=== PATIENT | male | born 1980 | race Caucasian/White ===

== ENCOUNTER 2017-05-14 10:23 | Emergency (ER) | payer OTHER ==
[2017-05-14] MEDS ORDERED: SODIUM CHLORIDE 0.9% 1,000 ML IV STA (10:39)
--- NOTE | 2017-05-14 10:47 | ED ---
General Adult HPI - General Chief complaint: Extremity Problem,Nontraumatic Stated complaint: LEFT ARM PAIN Time Seen by Provider: 05/14/17 10:30 Source: patient, RN notes reviewed Mode of arrival: ambulatory Limitations: no limitations - History of Present Illness Initial comments: Patient's 36-year-old male who presents emergency room today with chief complaint of left-sided arm pain. He doesn't pain left side of his neck and arm. He states that he noticed when he woke up. He states seems to be worse at times with some movement but states she was concerned that it could be related to his heart. He denies any family history of heart disease. Patient having difficult time describing pain going down the arm. Admits to pain to approximately the elbow area. States unsure if he slept wrong. Patient denies any other complaints or associated symptoms. Patient denies any recent fever, chills, shortness of breath, chest pain, back pain, abdominal pain, nausea or vomiting, numbness or tingling, dysuria or hematuria, constipation or diarrhea, headaches or visual changes, or any other complaints. - Related Data Home Medications Medication Instructions Recorded Confirmed Acetaminophen [Tylenol Extra 1,000 mg PO BID PRN 05/14/17 05/14/17 Strength] Ibuprofen [Motrin] 200 mg PO Q6HR PRN 05/14/17 05/14/17 Allergies Allergy/AdvReac Type Severity Reaction Status Date / Time No Known Allergies Allergy Verified 05/14/17 12:41 Review of Systems ROS Statement: Those systems with pertinent positive or pertinent negative responses have been documented in the HPI. ROS Other: All systems not noted in ROS Statement are negative. Past Medical History Past Medical History: No Reported History Additional Past Medical History / Comment(s): Kidney stone 2006 History of Any Multi-Drug Resistant Organisms: None Reported Additional Past Surgical History / Comment(s): Left Orchectomy Past Psychological History: No Psychological Hx Reported Smoking Status: Current every day smoker Past Alcohol Use History: None Reported Past Drug Use History: None Reported General Exam - General Exam Comments Initial Comments: General: The patient is awake and alert, in no distress, and does not appear acutely ill. Eye: Pupils are equal, round and reactive to light, extra-ocular movements are intact. No nystagmus. There is normal conjunctiva bilaterally. No signs of icterus. Ears, nose, mouth and throat: There are moist mucous membranes and no oral lesions. Neck: The neck is supple, there is no tenderness or JVD. Cardiovascular: There is a regular rate and rhythm. No murmur, rub or gallop is appreciated. Respiratory: Lungs are clear to auscultation, respirations are non-labored, breath sounds are equal. No wheezes, stridor, rales, or rhonchi. Gastrointestinal: Soft, non-distended, non-tender abdomen without masses or organomegaly noted. There is no rebound or guarding present. No CVA tenderness. Bowel sounds are unremarkable. Musculoskeletal: Normal ROM, no tenderness. Strength 5/5. Sensation intact. Pulses equal bilaterally 2+. Neurological: A&O x 3. CN II-XII intact, There are no obvious motor or sensory deficits. Coordination appears grossly intact. Speech is normal. Skin: Skin is warm and dry and no rashes or lesions are noted. Psychiatric: Cooperative, appropriate mood & affect, normal judgment. Limitations: no limitations Course Vital Signs 05/14/17 05/14/17 05/14/17 10:25 11:14 12:46 Temperature 97.2 F L Pulse Rate 82 85 91 Respiratory 20 18 18 Rate Blood Pressure 135/91 145/91 113/81 O2 Sat by Pulse 99 98 96 Oximetry EKG Findings - EKG Comments: EKG Findings:: EKG performed at 1109: A 12-lead EKG was performed and interpreted by me as showing the following: Rate is 80, and rhythm is normal sinus. There are normal QRS complexes and normal R-wave progression. ST segments have no elevation or depression, and NH segments appear normal. Medical Decision Making - Medical Decision Making Patient reexamined at this time shows no signs of distress. He states that he would like to be discharged. Patient's set of cardiac enzymes negative. Patient is with pain at this time he believes his shoulder wrong. He states it seems to be worse with movements. EKG shows no acute ST change. Patient advised close follow-up the family doctor over the next 2 days return to emergency room if any symptoms increase or worsen. - Lab Data Result diagrams: 05/14/17 11:11 05/14/17 11:11 Lab Results 05/14/17 05/14/17 05/14/17 Range/Units 11:11 11:11 11:11 WBC 5.7 (3.8-10.6) k/uL RBC 4.82 (4.30-5.90) m/uL Hgb 15.3 (13.0-17.5) gm/dL Hct 46.7 (39.0-53.0) % MCV 96.8 (80.0-100.0) fL MCH 31.8 (25.0-35.0) pg MCHC 32.8 (31.0-37.0) g/dL RDW 13.8 (11.5-15.5) % Plt Count 248 (150-450) k/uL Neutrophils % 49 % Lymphocytes % 38 % Monocytes % 6 % Eosinophils % 6 % Basophils % 1 % Neutrophils # 2.8 (1.3-7.7) k/uL Lymphocytes # 2.2 (1.0-4.8) k/uL Monocytes # 0.4 (0-1.0) k/uL Eosinophils # 0.3 (0-0.7) k/uL Basophils # 0.0 (0-0.2) k/uL PT (9.0-12.0) sec INR (<1.2) APTT (22.0-30.0) sec Sodium 142 (137-145) mmol/L Potassium 4.0 (3.5-5.1) mmol/L Chloride 108 H (98-107) mmol/L Carbon Dioxide 23 (22-30) mmol/L Anion Gap 11 mmol/L BUN 12 (9-20) mg/dL Creatinine 1.05 (0.66-1.25) mg/dL Est GFR (MDRD) Af Amer >60 (>60 ml/min/1.73 sqM) Est GFR (MDRD) Non-Af >60 (>60 ml/min/1.73 sqM) Glucose 101 H (74-99) mg/dL Calcium 9.7 (8.4-10.2) mg/dL Total Bilirubin 0.4 (0.2-1.3) mg/dL AST 19 (17-59) U/L ALT 25 (21-72) U/L Alkaline Phosphatase 37 L (38-126) U/L Total Creatine Kinase 69 (55-170) U/L CK-MB (CK-2) 0.3 (0.0-2.4) ng/mL CK-MB (CK-2) Rel Index 0.4 Troponin I <0.012 (0.000-0.034) ng/mL Total Protein 7.3 (6.3-8.2) g/dL Albumin 4.3 (3.5-5.0) g/dL 05/14/17 Range/Units 11:11 WBC (3.8-10.6) k/uL RBC (4.30-5.90) m/uL Hgb (13.0-17.5) gm/dL Hct (39.0-53.0) % MCV (80.0-100.0) fL MCH (25.0-35.0) pg MCHC (31.0-37.0) g/dL RDW (11.5-15.5) % Plt Count (150-450) k/uL Neutrophils % % Lymphocytes % % Monocytes % % Eosinophils % % Basophils % % Neutrophils # (1.3-7.7) k/uL Lymphocytes # (1.0-4.8) k/uL Monocytes # (0-1.0) k/uL Eosinophils # (0-0.7) k/uL Basophils # (0-0.2) k/uL PT 9.5 (9.0-12.0) sec INR 0.9 (<1.2) APTT 23.8 (22.0-30.0) sec Sodium (137-145) mmol/L Potassium (3.5-5.1) mmol/L Chloride (98-107) mmol/L Carbon Dioxide (22-30) mmol/L Anion Gap mmol/L BUN (9-20) mg/dL Creatinine (0.66-1.25) mg/dL Est GFR (MDRD) Af Amer (>60 ml/min/1.73 sqM) Est GFR (MDRD) Non-Af (>60 ml/min/1.73 sqM) Glucose (74-99) mg/dL Calcium (8.4-10.2) mg/dL Total Bilirubin (0.2-1.3) mg/dL AST (17-59) U/L ALT (21-72) U/L Alkaline Phosphatase (38-126) U/L Total Creatine Kinase (55-170) U/L CK-MB (CK-2) (0.0-2.4) ng/mL CK-MB (CK-2) Rel Index Troponin I (0.000-0.034) ng/mL Total Protein (6.3-8.2) g/dL Albumin (3.5-5.0) g/dL Disposition Clinical Impression: Shoulder pain Disposition: HOME SELF-CARE Condition: Good Instructions: Shoulder Pain (ED) Additional Instructions: Please follow-up family doctor over the next 1-2 days. Please use ibuprofen for pain as needed. Please return to emergency room if any symptoms increase or worsen or for any other concerns. Referrals: Cecil Moreno MD [Primary Care Provider] - 1-2 days Time of Disposition: 13:07
[2017-05-14 11:22] LABS: Basophils % (A) 1 %; CHCM 34.2; Eosinophils # (A) 0.3 k/uL (0-0.7); Eosinophils % (A) 6 %; HCT 46.7 % (39.0-53.0); HGB 15.3 gm/dL (13.0-17.5); Luc # (Auto) 0.07; Luc % (Auto) 1; Lymphocytes # (A) 2.2 k/uL (1.0-4.8); Lymphocytes % (A) 38 %; MCH 31.8 pg (25.0-35.0); MCHC 32.8 g/dL (31.0-37.0); MCV 96.8 fL (80.0-100.0); Mean Platelet Volume 8.2; Monocytes # (A) 0.4 k/uL (0-1.0); Monocytes % (A) 6 %; Neutrophils # (A) 2.8 k/uL (1.3-7.7); Neutrophils % (A) 49 %; RBC 4.82 m/uL (4.30-5.90); RDW 13.8 % (11.5-15.5); WBC 5.7 k/uL (3.8-10.6)
--- NOTE | 2017-05-14 11:32 | XR ---
EXAMINATION TYPE: XR chest 2V DATE OF EXAM: 05/14/2017 HISTORY: pain. REFERENCE: Previous study dated 10/09/2014. FINDINGS: The lungs are clear. Pleural spaces are clear IMPRESSION: NO ACUTE INTRATHORACIC ABNORMALITY.
[2017-05-14 11:34] LABS: INR 0.9 (<1.2); Partial Thromboplastin Time 23.8 sec (22.0-30.0); Prothrombin Time 9.5 sec (9.0-12.0)
[2017-05-14 11:42] LABS: ALT 25 U/L (21-72); AST 19 U/L (17-59); Alkaline Phosphatase 37 U/L (38-126); Anion Gap 11 mmol/L; Blood Urea Nitrogen 12 mg/dL (9-20); Calcium 9.7 mg/dL (8.4-10.2); Carbon Dioxide 23 mmol/L (22-30); Chloride 108 mmol/L (98-107); Glucose 101 mg/dL (74-99); Non-African American GFR(MDRD) >60 (>60 ml/min/1.73 sqM); Sodium 142 mmol/L (137-145); Total Bilirubin 0.4 mg/dL (0.2-1.3); Total Protein 7.3 g/dL (6.3-8.2)
[2017-05-14 11:54] LABS: Creatine Kinase 69 U/L (55-170)
[2017-05-14 12:05] LABS: Creatine Kinase MB 0.3 ng/mL (0.0-2.4); Troponin I <0.012 ng/mL (0.000-0.034)
[2017-05-14 13:23] VITALS: BP 135/69; PULSE 60; RESP 16; TEMP 98
== END 2017-05-14 13:25 | disposition home or self-care (01) ==
LOC: EC 10:23
DX: M25.512 Pain in left shoulder (principal); F17.200 Nicotine dependence, unspecified, uncomplicated
CPT/HCPCS: 36415; 71020; 80053; 82550; 82553; 84484; 85025; 85610; 85730; 93005; 96360; 96361; 99284

== ENCOUNTER 2018-03-05 13:28 | Emergency (ER) | payer OTHER ==
[2018-03-05 13:32] VITALS: BP 127/83; PULSE 104; RESP 18; TEMP 97.6
[2018-03-05] MEDS ORDERED: ACET/COD 300 MG/30 MG STARTER PACK 6 TAB BTL PO STA (13:58)
--- NOTE | 2018-03-05 14:04 | ED ---
General Adult HPI - General Chief complaint: Dental/Oral Stated complaint: Dental pain Time Seen by Provider: 03/05/18 13:33 Source: patient, RN notes reviewed Mode of arrival: ambulatory Limitations: no limitations - History of Present Illness Initial comments: Patient 37-year-old male presented to the emergency room today with a chief complaint of increased dental pain. Patient does admit to a fractured tooth at tooth #31. He does have a wisdom tooth on the right lower side that is been pushing through. He states it's been for sometime. He states over the last 2 weeks had increased pain. Does admit that his had some foul taste. Patient denies any other complaints or symptoms. Patient denies any recent fever, chills , shortness of breath, chest pain, back pain, abdominal pain, nausea or vomiting , numbness or tingling, headaches or visual changes, or any other complaints. - Related Data Home Medications Medication Instructions Recorded Confirmed Acetaminophen [Tylenol Extra 1,000 mg PO BID PRN 05/14/17 05/29/17 Strength] Ibuprofen [Motrin] 200 mg PO Q6HR PRN 05/14/17 05/29/17 Previous Rx's Medication Instructions Recorded HYDROcodone/APAP 5-325MG [[place] 1 tab PO Q6HR PRN #20 tab 05/29/17 5-325] Naproxen [Naprosyn] 500 mg PO Q12HR PRN #30 tab 05/29/17 Ondansetron Odt [Zofran ODT] 4 mg PO Q8HR PRN #30 tab 05/29/17 Tamsulosin [Flomax] 0.4 mg PO DAILY #7 cap 05/29/17 Penicillin V Potassium [Pen Vee K] 500 mg PO QID #40 tablet 03/05/18 Allergies Allergy/AdvReac Type Severity Reaction Status Date / Time No Known Allergies Allergy Verified 03/05/18 13:32 Review of Systems ROS Statement: Those systems with pertinent positive or pertinent negative responses have been documented in the HPI. ROS Other: All systems not noted in ROS Statement are negative. Past Medical History Past Medical History: No Reported History Additional Past Medical History / Comment(s): Kidney stone 2006 History of Any Multi-Drug Resistant Organisms: None Reported Additional Past Surgical History / Comment(s): Left Orchectomy Past Psychological History: No Psychological Hx Reported Smoking Status: Current every day smoker Past Alcohol Use History: None Reported Past Drug Use History: None Reported General Exam - General Exam Comments Initial Comments: General: The patient is awake and alert, in no distress, and does not appear acutely ill. Eye: Pupils are equal, round and reactive to light, extra-ocular movements are intact. No nystagmus. There is normal conjunctiva bilaterally. No signs of icterus. Ears, nose, mouth and throat: There are moist mucous membranes and no oral lesions. Patient does have fracture to the tooth #31 with a wasn't tooth tooth #32 pushing through. No obvious abscess. Uvula midline. Neck: The neck is supple, there is no tenderness or JVD. Musculoskeletal: Normal ROM, no tenderness. Strength 5/5. Sensation intact. Neurological: A&O x 3. CN II-XII intact, There are no obvious motor or sensory deficits. Coordination appears grossly intact. Speech is normal. Skin: Skin is warm and dry and no rashes or lesions are noted. Psychiatric: Cooperative, appropriate mood & affect, normal judgment. Limitations: no limitations Course Vital Signs 03/05/18 13:31 Temperature 97.6 F Pulse Rate 104 H Respiratory 18 Rate Blood Pressure 127/83 O2 Sat by Pulse 97 Oximetry Medical Decision Making - Medical Decision Making Patient will be started on antibiotics and given starter pack of Tylenol with codeine here in the emergency room. Patient is advised follow-up with dentist or oral surgeon. Disposition Clinical Impression: Pain, dental Disposition: HOME SELF-CARE Condition: Good Instructions: Toothache (ED) Additional Instructions: Please follow-up with dentist and use antibiotic and pain medication as discussed. [facility] [address] [id number] [phone]) (existing clients only) For new clients: [phone] [facility] Pay $50 for x-rays and the rest discovered [phone] Prescriptions: Penicillin V Potassium [Pen Vee K] 500 mg PO QID #40 tablet Is patient prescribed a controlled substance at d/c from ED?: No Referrals: Cecil Moreno MD [Primary Care Provider] - 1-2 days Time of Disposition: 14:03
== END 2018-03-05 14:31 | disposition home or self-care (01) ==
LOC: EC 13:28
DX: K08.89 Other specified disorders of teeth and supporting structures (principal); F17.200 Nicotine dependence, unspecified, uncomplicated
CPT/HCPCS: 99282

== ENCOUNTER 2018-07-20 20:48 | Emergency (ER) | payer OTHER ==
[2018-07-20 20:51] VITALS: RESP 20
--- NOTE | 2018-07-20 21:00 | ED ---
Arrhythmia/Palpitations HPI - General Chief Complaint: Arrhythmia/Palpitations Stated Complaint: heart issues Time Seen by Provider: 07/20/18 20:59 Source: patient Mode of arrival: ambulatory Limitations: no limitations - History of Present Illness Initial Comments: Visit previously healthy 37-year-old male who presents the emergency department today for evaluation of palpitations. Patient reports he was sitting in his parents house talking with them when he suddenly began feeling like his heart was racing. Patient reports he used his mother's blood pressure cuff and noted that his blood pressure is up and his heart rate was in the 120s this made him very nervous. Patient reports he just feels like something is well so he came to the ER for evaluation. Patient does state that he was evaluated for something similar last month was advised that he is likely suffering from panic attacks, both the patient's mother and father have a history of anxiety and panic attacks as well as most of his extended family. Patient was previously on Klonopin when necessary for his anxiety however he has not been on it for a number of years. Patient currently does not have a primary care physician to follow up with studies been unable to discuss this with a physician since his previous ER visit. Patient has no cardiac history, no history of hypertension, hyperlipidemia and diabetes. He is in every day cigarette smoker. He has no history of DVT or PE, no risk factors for blood clots. Operative patient is are not associated with any chest pain, pressure or exertional symptoms shortness of breath diaphoresis or lightheadedness. - Related Data Home Medications Medication Instructions Recorded Confirmed Acetaminophen [Tylenol Extra 1,000 mg PO Q8H PRN 07/20/18 07/20/18 Strength] Ranitidine HCl [Zantac] 150 mg PO DAILY PRN 07/20/18 07/20/18 Allergies Allergy/AdvReac Type Severity Reaction Status Date / Time No Known Allergies Allergy Verified 07/20/18 21:17 Review of Systems ROS Statement: Those systems with pertinent positive or pertinent negative responses have been documented in the HPI. ROS Other: All systems not noted in ROS Statement are negative. Past Medical History Past Medical History: No Reported History Additional Past Medical History / Comment(s): Kidney stone 2006 History of Any Multi-Drug Resistant Organisms: None Reported Additional Past Surgical History / Comment(s): Left Orchectomy Past Psychological History: No Psychological Hx Reported Smoking Status: Current every day smoker Past Alcohol Use History: None Reported Past Drug Use History: None Reported General Exam - General Exam Comments Initial Comments: Physical Exam GENERAL: Patient is well-developed and well-nourished. Patient is nontoxic and well- hydrated and is in no distress. HENT: Normocephalic, Atraumatic. EYES: PERRL, EOMI PULMONARY: Unlabored respirations. No audible rales rhonchi or wheezing was noted. CARDIOVASCULAR: There is a regular rate and rhythm without any murmurs gallops or rubs. Warm and well perfused extremities ABDOMEN: Soft and nontender with normal bowel sounds. SKIN: Skin is clear with no lesions or rashes and otherwise unremarkable. : Deferred NEUROLOGIC: Patient is alert and oriented x3. Moving all extremities spontaneously MUSCULOSKELETAL: Normal extremities with adequate strength and full range of motion. No lower extremity swelling or edema. No calf tenderness. PSYCHIATRIC: Anxious Limitations: no limitations Limitations: no limitations Course Vital Signs 07/20/18 07/20/18 07/20/18 20:49 21:12 21:51 Temperature 98.2 F Pulse Rate 133 H 99 Pulse Rate [ 108 H Inside Sales Account Manager ] Respiratory 20 20 Rate Blood Pressure 154/96 108/79 O2 Sat by Pulse 100 97 Oximetry 07/20/18 22:12 Temperature 97 F L Pulse Rate 88 Pulse Rate [ Inside Sales Account Manager ] Respiratory 20 Rate Blood Pressure 110/69 O2 Sat by Pulse 97 Oximetry EKG Findings - EKG Comments: EKG Findings:: EKG obtained at 2056 is 126, rhythm is sinus tachycardia with frequent PACs, there is normal axis, normal intervals, KS 150, cure 76, QTC 443. There are no acute ST elevations or depressions no evidence of acute ischemia or infarction or arrhythmia. Compared to EKG obtained last month there is no significant change in morphology. Medical Decision Making - Medical Decision Making The patient was seen and evaluated history is obtained from the patient review of nursing notes and review of medical record This is a relatively healthy 37-year-old male with a history of anxiety who is presenting with sudden onset of palpitations, no cardiac risk factors aside from cigarette smoking EKG not ischemic Patient given oral ativan Labs unremarkable Troponin and D-dimer negative Patient reassessed, reports resolution of palpitations and feeling unwell after oral ativan, HR improved to 80s, SpO2 remains 96-99% on RA Results were discussed with patient who expresses relief and believes he is suffering from anxiety. Patient referred to multiple PCP for follow up. Return parameters discussed, patient discharged home in stable condition. - Lab Data Result diagrams: 07/20/18 21:04 07/20/18 21:04 Lab Results 07/20/18 07/20/18 07/20/18 Range/Units 21:04 21:04 21:04 WBC 7.7 (3.8-10.6) k/uL RBC 5.04 (4.30-5.90) m/uL Hgb 15.8 (13.0-17.5) gm/dL Hct 47.5 (39.0-53.0) % MCV 94.2 (80.0-100.0) fL MCH 31.4 (25.0-35.0) pg MCHC 33.3 (31.0-37.0) g/dL RDW 12.5 (11.5-15.5) % Plt Count 239 (150-450) k/uL Neutrophils % 42 % Lymphocytes % 46 % Monocytes % 4 % Eosinophils % 4 % Basophils % 1 % Neutrophils # 3.3 (1.3-7.7) k/uL Lymphocytes # 3.6 (1.0-4.8) k/uL Monocytes # 0.3 (0-1.0) k/uL Eosinophils # 0.3 (0-0.7) k/uL Basophils # 0.1 (0-0.2) k/uL PT (9.0-12.0) sec INR (<1.2) APTT (22.0-30.0) sec D-Dimer (<0.60) mg/L FEU Sodium 141 (137-145) mmol/L Potassium 3.9 (3.5-5.1) mmol/L Chloride 106 (98-107) mmol/L Carbon Dioxide 23 (22-30) mmol/L Anion Gap 12 mmol/L BUN 20 (9-20) mg/dL Creatinine 1.09 (0.66-1.25) mg/dL Est GFR (CKD-EPI)AfAm >90 (>60 ml/min/1.73 sqM) Est GFR (CKD-EPI)NonAf 87 (>60 ml/min/1.73 sqM) Glucose 141 H (74-99) mg/dL Calcium 10.4 H (8.4-10.2) mg/dL Magnesium 1.8 (1.6-2.3) mg/dL Total Bilirubin 0.4 (0.2-1.3) mg/dL AST 20 (17-59) U/L ALT 21 (21-72) U/L Alkaline Phosphatase 29 L (38-126) U/L Total Creatine Kinase 79 (55-170) U/L CK-MB (CK-2) 0.3 (0.0-2.4) ng/mL CK-MB (CK-2) Rel Index 0.4 Troponin I <0.012 (0.000-0.034) ng/mL Total Protein 7.9 (6.3-8.2) g/dL Albumin 4.7 (3.5-5.0) g/dL TSH 2.640 (0.465-4.680) mIU/L 07/20/18 Range/Units 21:04 WBC (3.8-10.6) k/uL RBC (4.30-5.90) m/uL Hgb (13.0-17.5) gm/dL Hct (39.0-53.0) % MCV (80.0-100.0) fL MCH (25.0-35.0) pg MCHC (31.0-37.0) g/dL RDW (11.5-15.5) % Plt Count (150-450) k/uL Neutrophils % % Lymphocytes % % Monocytes % % Eosinophils % % Basophils % % Neutrophils # (1.3-7.7) k/uL Lymphocytes # (1.0-4.8) k/uL Monocytes # (0-1.0) k/uL Eosinophils # (0-0.7) k/uL Basophils # (0-0.2) k/uL PT 9.4 (9.0-12.0) sec INR 0.8 (<1.2) APTT 24.2 (22.0-30.0) sec D-Dimer <0.17 (<0.60) mg/L FEU Sodium (137-145) mmol/L Potassium (3.5-5.1) mmol/L Chloride (98-107) mmol/L Carbon Dioxide (22-30) mmol/L Anion Gap mmol/L BUN (9-20) mg/dL Creatinine (0.66-1.25) mg/dL Est GFR (CKD-EPI)AfAm (>60 ml/min/1.73 sqM) Est GFR (CKD-EPI)NonAf (>60 ml/min/1.73 sqM) Glucose (74-99) mg/dL Calcium (8.4-10.2) mg/dL Magnesium (1.6-2.3) mg/dL Total Bilirubin (0.2-1.3) mg/dL AST (17-59) U/L ALT (21-72) U/L Alkaline Phosphatase (38-126) U/L Total Creatine Kinase (55-170) U/L CK-MB (CK-2) (0.0-2.4) ng/mL CK-MB (CK-2) Rel Index Troponin I (0.000-0.034) ng/mL Total Protein (6.3-8.2) g/dL Albumin (3.5-5.0) g/dL TSH (0.465-4.680) mIU/L Disposition Clinical Impression: Palpitations Disposition: HOME SELF-CARE Condition: Good Instructions: Heart Palpitations (ED) Is patient prescribed a controlled substance at d/c from ED?: No Referrals: None,Stated [Primary Care Provider] - 1-2 days [facility] - 1-2 days Bobby Hull MD [STAFF PHYSICIAN] - 1-2 days Juan Zhu MD [REFERRING] - 1-2 days Denys Monge MD [STAFF PHYSICIAN] - 1-2 days Time of Disposition: 21:58
[2018-07-20] MEDS ORDERED: ASPIRIN 81 MG PO STA (21:17)
[2018-07-20] MEDS ORDERED: SODIUM CHLORIDE 0.9% 1,000 ML IV STA (21:17)
[2018-07-20] MEDS ORDERED: LORazepam 1 MG TAB PO STA (21:17)
[2018-07-20 21:36] LABS: Basophils # (A) 0.1 k/uL (0-0.2); Basophils % (A) 1 %; Eosinophils # (A) 0.3 k/uL (0-0.7); Eosinophils % (A) 4 %; HCT 47.5 % (39.0-53.0); HGB 15.8 gm/dL (13.0-17.5); Lymphocytes # (A) 3.6 k/uL (1.0-4.8); Lymphocytes % (A) 46 %; MCH 31.4 pg (25.0-35.0); MCHC 33.3 g/dL (31.0-37.0); MCV 94.2 fL (80.0-100.0); Mean Platelet Volume 7.7; Monocytes # (A) 0.3 k/uL (0-1.0); Monocytes % (A) 4 %; Neutrophils # (A) 3.3 k/uL (1.3-7.7); Neutrophils % (A) 42 %; Platelet Count 239 k/uL (150-450); RBC 5.04 m/uL (4.30-5.90); RDW 12.5 % (11.5-15.5); WBC 7.7 k/uL (3.8-10.6)
[2018-07-20 21:38] LABS: ALT 21 U/L (21-72); AST 20 U/L (17-59); Albumin 4.7 g/dL (3.5-5.0); Alkaline Phosphatase 29 U/L (38-126); Anion Gap 12 mmol/L; Blood Urea Nitrogen 20 mg/dL (9-20); Calcium 10.4 mg/dL (8.4-10.2); Carbon Dioxide 23 mmol/L (22-30); Chloride 106 mmol/L (98-107); Glucose 141 mg/dL (74-99); Magnesium 1.8 mg/dL (1.6-2.3); Potassium 3.9 mmol/L (3.5-5.1); Sodium 141 mmol/L (137-145); Total Bilirubin 0.4 mg/dL (0.2-1.3); Total Protein 7.9 g/dL (6.3-8.2)
[2018-07-20 21:43] LABS: Creatine Kinase 79 U/L (55-170)
[2018-07-20 21:48] LABS: D-Dimer <0.17 mg/L FEU (<0.60); INR 0.8 (<1.2); Partial Thromboplastin Time 24.2 sec (22.0-30.0); Prothrombin Time 9.4 sec (9.0-12.0)
[2018-07-20 21:54] LABS: Creatine Kinase MB 0.3 ng/mL (0.0-2.4); Troponin I <0.012 ng/mL (0.000-0.034)
[2018-07-20 22:13] VITALS: BP 110/69; PULSE 88; TEMP 97
== END 2018-07-20 22:13 | disposition home or self-care (01) ==
LOC: EC 20:48
DX: R00.2 Palpitations (principal); R03.0 Elevated blood-pressure reading, without diagnosis of hypertension; F17.210 Nicotine dependence, cigarettes, uncomplicated
CPT/HCPCS: 36415; 80053; 82550; 82553; 83735; 84443; 84484; 85025; 85379; 85610; 85730; 93005; 96360; 99285

== ENCOUNTER 2018-08-12 18:48 | Emergency (ER) | payer OTHER ==
[2018-08-12] MEDS ORDERED: LORazepam 2 MG/ML INJ IV STA (19:13)
--- NOTE | 2018-08-12 19:28 | ED ---
General Adult HPI - General Chief complaint: Arrhythmia/Palpitations Stated complaint: chest pain Source: patient, family, RN notes reviewed, old records reviewed Mode of arrival: wheelchair Limitations: no limitations - History of Present Illness Initial comments: Chief complaint and history of present illness this is a 37-year-old female here with complaint of palpitations or chest discomfort. Patient reports approximately one hour ago he started having mild discomfort in the epigastric region and then he states he felt as though maybe he was having some discomfort to his jaw and left arm hands became somewhat sweaty. Patient reports a septic several times. He states he has a history of anxiety and panic attacks. No strong family history of cardiac disease. Patient has not had cardiac issues diagnosed in the past. - Related Data Home Medications Medication Instructions Recorded Confirmed Acetaminophen [Tylenol Extra 1,000 mg PO Q8H PRN 07/20/18 07/20/18 Strength] Ranitidine HCl [Zantac] 150 mg PO DAILY PRN 07/20/18 07/20/18 Allergies Allergy/AdvReac Type Severity Reaction Status Date / Time No Known Allergies Allergy Verified 08/12/18 18:53 Review of Systems ROS Statement: Those systems with pertinent positive or pertinent negative responses have been documented in the HPI. Review of systems. Patient denies any headache or visual acuity changes he is epigastric area discomfort. Without radiation at this time. Patient does describe his reaction to the pain as a possible anxiety attack with diaphoresis to his hands and anxiety. No shortness of breath this time. No GI/ problems no neuro deficits. All systems were reviewed. The patient's past medical problems significant for anxiety. He denies any surgeries. Family history strong for anxiety. His father had prostate cancer. Patient denies ALLERGIES. Does smoke strongly encouraged to stop denies alcohol use. ROS Other: All systems not noted in ROS Statement are negative. Past Medical History Past Medical History: No Reported History Additional Past Medical History / Comment(s): Kidney stone 2006 History of Any Multi-Drug Resistant Organisms: None Reported Additional Past Surgical History / Comment(s): Left Orchectomy Past Psychological History: No Psychological Hx Reported Smoking Status: Current every day smoker Past Alcohol Use History: None Reported Past Drug Use History: None Reported General Exam - General Exam Comments Initial Comments: General: The patient is awake and alert, in with a complaint of a possible anxiety attack palpitations. Vital signs were reviewed.. Temp 97.7 pulse 114, down to 99 when his EKG was done. Respiratory rate 18 blood pressure 163/68 pulse ox on percent room air Eye: Pupils are equal, round and reactive to light, extra-ocular movements are intact ; there is normal conjunctiva bilaterally. No signs of icterus. Ears, nose, mouth and throat: There are moist mucous membranes and no oral lesions. Neck: The neck is supple, there is no tenderness, thyroid not enlarged. Cardiovascular: There is a regular rate and rhythm. No murmur, rub or gallop is appreciated. Respiratory: Lungs are clear to auscultation, respirations are non-labored, breath sounds are equal. No wheezes, stridor, rales, or rhonchi. Gastrointestinal: Soft, non-distended, mildly tender with deep palpation to the epigastric region without masses or organomegaly noted. There is no rebound or guarding present. No CVA tenderness. Bowel sounds are unremarkable. Back: There is no tenderness to palpation in the midline. There is no obvious deformity. No rashes noted. Musculoskeletal: Normal ROM, no tenderness, There is no pedal edema. There is no calf tenderness or swelling. Sensation intact. Pulses equal bilaterally 2+. Neurological: No neuro deficits Skin: Skin is warm and dry and no rashes or lesions are noted. Psychiatric: History of anxiety and panic attacks. Used to take Klonopin does not take it any longer. Limitations: no limitations Course Vital Signs 08/12/18 08/12/18 08/12/18 18:51 19:45 21:00 Temperature 97.7 F Pulse Rate 114 H 83 90 Respiratory 18 20 18 Rate Blood Pressure 163/68 116/84 137/81 O2 Sat by Pulse 100 96 99 Oximetry EKG Findings - EKG Comments: EKG Findings:: EKG was done and reviewed at 1903 showing sinus rhythm with nonspecific APCs otherwise nonspecific changes. No acute ST elevation. Rate 99 WV interval is 142 QRS 76 QTc is 324 QTc is 4:15. This EKG is compared to one done on July 28 of last month. They are similar. Medical Decision Making - Medical Decision Making Medical decision making; this is a 37-year-old male who is coming emergency room because of palpitations and some chest discomfort. The patient reports she 's had multiple episodes of anxiety and panic attacks with similar symptoms. The last one was this past July. EKG was within normal limits no acute ST elevation. Labs showed white count of 9.8 hemoglobin 15 hematocrit of 45 with a potassium 4.1. BUN 16 creatinine 0.96 and GFR greater than 90. Glucose I7. Troponin less than 0.012. Radiologist review the x-ray the patient's chest and his impression is there are overlying cardiac leads. There is no focal airspace opacity, pleural effusion, or pneumothorax seen. Cardiac silhouette size is within normal limits. The osseous structures are intact. Impression no acute cardiopulmonary process. As read by Dr. Tomlin Chest x-ray was reviewed by radiologist his impression is; no acute cardiopulmonary process. As read by Dr. Tomlin Patient had IV Ativan which she states made all his issues go away. The patient had been on Klonopin years ago. We discussed his current situation. The patient feels though he is having anxiety attacks each time. There is no significant personal or family history for cardiac issues. The patient wants to go home with follow-up with his family physician. Patient advised return emergency room if has any changes. - Lab Data Result diagrams: 08/12/18 19:45 08/12/18 19:45 Lab Results 08/12/18 08/12/18 08/12/18 Range/Units 19:45 19:45 19:45 WBC 9.8 (3.8-10.6) k/uL RBC 4.87 (4.30-5.90) m/uL Hgb 15.7 (13.0-17.5) gm/dL Hct 45.3 (39.0-53.0) % MCV 93.0 (80.0-100.0) fL MCH 32.2 (25.0-35.0) pg MCHC 34.7 (31.0-37.0) g/dL RDW 12.3 (11.5-15.5) % Plt Count 217 (150-450) k/uL Neutrophils % 72 % Lymphocytes % 20 % Monocytes % 5 % Eosinophils % 2 % Basophils % 0 % Neutrophils # 7.0 (1.3-7.7) k/uL Lymphocytes # 2.0 (1.0-4.8) k/uL Monocytes # 0.5 (0-1.0) k/uL Eosinophils # 0.2 (0-0.7) k/uL Basophils # 0.0 (0-0.2) k/uL PT (9.0-12.0) sec INR (<1.2) D-Dimer (<0.60) mg/L FEU Sodium 138 (137-145) mmol/L Potassium 4.1 (3.5-5.1) mmol/L Chloride 108 H (98-107) mmol/L Carbon Dioxide 24 (22-30) mmol/L Anion Gap 6 mmol/L BUN 16 (9-20) mg/dL Creatinine 0.96 (0.66-1.25) mg/dL Est GFR (CKD-EPI)AfAm >90 (>60 ml/min/1.73 sqM) Est GFR (CKD-EPI)NonAf >90 (>60 ml/min/1.73 sqM) Glucose 97 (74-99) mg/dL Calcium 9.8 (8.4-10.2) mg/dL Magnesium 2.0 (1.6-2.3) mg/dL Total Bilirubin 0.6 (0.2-1.3) mg/dL AST 21 (17-59) U/L ALT 30 (21-72) U/L Alkaline Phosphatase 26 L (38-126) U/L Total Creatine Kinase 63 (55-170) U/L CK-MB (CK-2) <0.2 (0.0-2.4) ng/mL CK-MB (CK-2) Rel Index Troponin I <0.012 (0.000-0.034) ng/mL Total Protein 7.1 (6.3-8.2) g/dL Albumin 4.3 (3.5-5.0) g/dL TSH 1.390 (0.465-4.680) mIU/L 08/12/18 Range/Units 19:45 WBC (3.8-10.6) k/uL RBC (4.30-5.90) m/uL Hgb (13.0-17.5) gm/dL Hct (39.0-53.0) % MCV (80.0-100.0) fL MCH (25.0-35.0) pg MCHC (31.0-37.0) g/dL RDW (11.5-15.5) % Plt Count (150-450) k/uL Neutrophils % % Lymphocytes % % Monocytes % % Eosinophils % % Basophils % % Neutrophils # (1.3-7.7) k/uL Lymphocytes # (1.0-4.8) k/uL Monocytes # (0-1.0) k/uL Eosinophils # (0-0.7) k/uL Basophils # (0-0.2) k/uL PT 9.9 (9.0-12.0) sec INR 0.9 (<1.2) D-Dimer <0.17 (<0.60) mg/L FEU Sodium (137-145) mmol/L Potassium (3.5-5.1) mmol/L Chloride (98-107) mmol/L Carbon Dioxide (22-30) mmol/L Anion Gap mmol/L BUN (9-20) mg/dL Creatinine (0.66-1.25) mg/dL Est GFR (CKD-EPI)AfAm (>60 ml/min/1.73 sqM) Est GFR (CKD-EPI)NonAf (>60 ml/min/1.73 sqM) Glucose (74-99) mg/dL Calcium (8.4-10.2) mg/dL Magnesium (1.6-2.3) mg/dL Total Bilirubin (0.2-1.3) mg/dL AST (17-59) U/L ALT (21-72) U/L Alkaline Phosphatase (38-126) U/L Total Creatine Kinase (55-170) U/L CK-MB (CK-2) (0.0-2.4) ng/mL CK-MB (CK-2) Rel Index Troponin I (0.000-0.034) ng/mL Total Protein (6.3-8.2) g/dL Albumin (3.5-5.0) g/dL TSH (0.465-4.680) mIU/L Disposition Clinical Impression: Anxiety about health, Chronic GERD Disposition: HOME SELF-CARE Condition: Fair Instructions: Heart Palpitations (ED), Generalized Anxiety Disorder (ED), Gastroesophageal Reflux Disease (ED) Additional Instructions: Follow-up with family physician. Stop smoking. Follow up with on-call doctor as needed continue with [id number] Pepcid or Zantac. Return as needed Is patient prescribed a controlled substance at d/c from ED?: No Referrals: None,Stated [Primary Care Provider] - 1-2 days Juan Zhu MD [REFERRING] - 1-2 days Time of Disposition: 22:39
[2018-08-12 20:05] LABS: Basophils % (A) 0 %; Eosinophils # (A) 0.2 k/uL (0-0.7); Eosinophils % (A) 2 %; HCT 45.3 % (39.0-53.0); HGB 15.7 gm/dL (13.0-17.5); Lymphocytes % (A) 20 %; MCH 32.2 pg (25.0-35.0); MCHC 34.7 g/dL (31.0-37.0); Monocytes # (A) 0.5 k/uL (0-1.0); Monocytes % (A) 5 %; Neutrophils % (A) 72 %; Platelet Count 217 k/uL (150-450); RBC 4.87 m/uL (4.30-5.90); RDW 12.3 % (11.5-15.5); WBC 9.8 k/uL (3.8-10.6)
--- NOTE | 2018-08-12 20:08 | XR ---
EXAMINATION TYPE: XR chest 2V DATE OF EXAM: 08/12/2018 COMPARISON: Prior chest x-ray 05/14/2017 HISTORY: Chest pain and dysrhythmia TECHNIQUE: Frontal and lateral views of the chest are obtained. FINDINGS: There are overlying cardiac leads. There is no focal air space opacity, pleural effusion, o r pneumothorax seen. The cardiac silhouette size is within normal limits. The osseous structures a re intact. IMPRESSION: No acute cardiopulmonary process.
[2018-08-12 20:15] LABS: ALT 30 U/L (21-72); AST 21 U/L (17-59); Albumin 4.3 g/dL (3.5-5.0); Alkaline Phosphatase 26 U/L (38-126); Anion Gap 6 mmol/L; Blood Urea Nitrogen 16 mg/dL (9-20); Calcium 9.8 mg/dL (8.4-10.2); Carbon Dioxide 24 mmol/L (22-30); Chloride 108 mmol/L (98-107); Glucose 97 mg/dL (74-99); Potassium 4.1 mmol/L (3.5-5.1); Sodium 138 mmol/L (137-145); Total Bilirubin 0.6 mg/dL (0.2-1.3); Total Protein 7.1 g/dL (6.3-8.2)
[2018-08-12 20:16] LABS: D-Dimer <0.17 mg/L FEU (<0.60); INR 0.9 (<1.2); Prothrombin Time 9.9 sec (9.0-12.0)
[2018-08-12 20:17] LABS: Creatine Kinase 63 U/L (55-170)
[2018-08-12 20:31] LABS: Creatine Kinase MB <0.2 ng/mL (0.0-2.4); Troponin I <0.012 ng/mL (0.000-0.034)
[2018-08-12 21:13] VITALS: RESP 18
[2018-08-12 22:50] VITALS: BP 115/73; PULSE 87; TEMP 98.2
== END 2018-08-12 22:49 | disposition home or self-care (01) ==
LOC: EC 18:48
DX: F41.9 Anxiety disorder, unspecified (principal); K21.9 Gastro-esophageal reflux disease without esophagitis; F17.200 Nicotine dependence, unspecified, uncomplicated
CPT/HCPCS: 36415; 93005; 85379; 80053; 82550; 82553; 83735; 84443; 84484; 85025; 85610; 71046; 99285; 96374; J2060

== ENCOUNTER 2018-08-21 23:39 | Emergency (ER) | payer OTHER ==
[2018-08-21 23:45] VITALS: TEMP 98.5
[2018-08-22] MEDS ORDERED: LORazepam 2 MG/ML INJ IM STA (00:22)
--- NOTE | 2018-08-22 00:28 | ED ---
General Adult HPI - General Chief complaint: Chest Pain Stated complaint: Chest Pain Source: patient Mode of arrival: ambulatory Limitations: no limitations - Related Data Home Medications Medication Instructions Recorded Confirmed Acetaminophen [Tylenol Extra 1,000 mg PO Q8H PRN 07/20/18 07/20/18 Strength] Ranitidine HCl [Zantac] 150 mg PO DAILY PRN 07/20/18 07/20/18 Previous Rx's Medication Instructions Recorded clonazePAM [KlonoPIN] 0.25 mg PO BID PRN #6 tablet 08/22/18 Allergies Allergy/AdvReac Type Severity Reaction Status Date / Time No Known Allergies Allergy Verified 08/21/18 23:45 Review of Systems ROS Statement: Those systems with pertinent positive or pertinent negative responses have been documented in the HPI. ROS Other: All systems not noted in ROS Statement are negative. Past Medical History Past Medical History: No Reported History Additional Past Medical History / Comment(s): Kidney stone 2006 History of Any Multi-Drug Resistant Organisms: None Reported Additional Past Surgical History / Comment(s): Left Orchectomy Past Psychological History: No Psychological Hx Reported Smoking Status: Current every day smoker Past Alcohol Use History: None Reported Past Drug Use History: None Reported General Exam Limitations: no limitations Course Vital Signs 08/21/18 23:44 Temperature 98.5 F Pulse Rate 85 Respiratory 20 Rate Blood Pressure 156/77 O2 Sat by Pulse 98 Oximetry Medical Decision Making - Medical Decision Making Dictation was produced using [employer] dictation software. please excuse any grammatical, word or spelling errors. Chief Complaint: 37 year old male presents with panic attack. History of Present Illness: 37-year-old male with past medical history anxiety. Patient states that he is watching TV. His family member left. He walks stairs and felt impending doom. Patient states he did not have any chest pain or chest pressure. He states he started breathing fast and noticed that his heart was beating fast. Patient used to take anxiety medications however he stopped taking them because he didn't like the list of side effects. Patient feels well now. The ROS documented in this emergency department record has been reviewed and confirmed by me. Those systems with pertinent positive or negative responses have been documented in the HPI. All other systems are other negative and/or noncontributory. PHYSICAL EXAM: General Impression: Alert and oriented x3, not in acute distress HEENT: Normocephalic atraumatic, extra-ocular movements intact, pupils equal and reactive to light bilaterally, mucous membranes moist. Cardiovascular: Heart regular rate and rhythm, S1&S2 audible, no murmurs, rubs or gallops Chest: Lungs clear to auscultation bilaterally, no rhonchi, no wheeze, no rales Abdomen: Bowel sounds present, abdomen soft, non-tender, non-distended, no organomegaly Musculoskeletal: Pulses present and equal in all extremities, no peripheral edema Motor: Power 5/5 bilaterally, no focal deficits noted Neurological: CN II-XII grossly intact, no focal motor or sensory deficits noted Skin: Intact with no visualized rashes Psych: Normal affect and mood ED course: 27 yOld male with anxiety reaction. As upon arrival are within acceptable limits. EKGs benign. Patient given IM Ativan. Patient told that he needs to manage this outpatient with his primary care doctor. He reports that he doesn't like his current primary care doctor. Patient referral to Dr. Fragoso. Patient given 6 tabs of clonazepam. EKG interpretation: Ventricular rate 90, sinus rhythm, LA interval 142, care is 82, QTC 423. No LA prolongation, no QTC prolongation, no ST or T-wave changes noted. s. Overall, this EKG is unremarkable Disposition Clinical Impression: Anxiety reaction Disposition: HOME SELF-CARE Condition: Good Instructions (If sedation given, give patient instructions): Anxiolysis in Adults (ED) Prescriptions: clonazePAM [KlonoPIN] 0.25 mg PO BID PRN #6 tablet PRN Reason: Anxiety Is patient prescribed a controlled substance at d/c from ED?: Yes If prescribed controlled substance>3 days was MAPS reviewed?: Prescribed <3 Days Referrals: None,Stated [Primary Care Provider] - 1-2 days Juan Zhu MD [REFERRING] - 1-2 days Time of Disposition: 00:28
[2018-08-22 00:48] VITALS: BP 121/89; PULSE 76; RESP 18
== END 2018-08-22 00:50 | disposition home or self-care (01) ==
LOC: EC 23:39
DX: F41.1 Generalized anxiety disorder (principal); F17.200 Nicotine dependence, unspecified, uncomplicated
CPT/HCPCS: 99283; 96372; J2060

== ENCOUNTER 2018-08-31 23:03 | Emergency (ER) | payer OTHER ==
[2018-08-31] MEDS ORDERED: KETOROLAC 30 MG/ML 1 ML VIAL IVP STA (23:42)
--- NOTE | 2018-08-31 23:43 | ED ---
Chest Pain HPI - General Chief Complaint: Chest Pain Stated Complaint: chest pain Time Seen by Provider: 08/31/18 23:22 Source: patient, RN notes reviewed, old records reviewed Mode of arrival: ambulatory Limitations: no limitations - History of Present Illness Initial Comments: This is a 37-year-old male who was a smoker who states he has sharp lower midsternal chest pain it does sometimes radiate around both sides of his chest to his back he's had this intermittently for the past several days no cough fevers chills sweats or other symptoms pain does get somewhat worse with deep breathing. He states he gets very anxious when the pain does come on also does have anxiety disorder he states. He has been here recently for evaluation of chest pain also. No other modifying factors he denies any trauma denies any early cardiac disease and his family. No diagnosed lung problems. He does say he's plan quitting smoking. MD Complaint: chest pain - Related Data Previous Rx's Medication Instructions Recorded Ibuprofen 800 mg PO Q6HR PRN #20 tablet 09/01/18 Allergies Allergy/AdvReac Type Severity Reaction Status Date / Time No Known Allergies Allergy Verified 08/31/18 23:24 Review of Systems ROS Statement: Those systems with pertinent positive or pertinent negative responses have been documented in the HPI. ROS Other: All systems not noted in ROS Statement are negative. EKG Findings - EKG Results: EKG: interpreted by ALTHEA, sinus rhythm (Sinus rhythm rate of 101. Interval 142 QRS duration 82 QT since QTC 324/420 nonspecific T-wave configuration) Past Medical History Past Medical History: No Reported History Additional Past Medical History / Comment(s): Kidney stone 2006 History of Any Multi-Drug Resistant Organisms: None Reported Additional Past Surgical History / Comment(s): Left Orchectomy Past Psychological History: No Psychological Hx Reported Smoking Status: Current every day smoker Past Alcohol Use History: None Reported Past Drug Use History: None Reported General Exam - General Exam Comments Initial Comments: This is a well-developed well-nourished awake alert oriented times 3 male Limitations: no limitations General appearance: alert, anxious Head exam: Present: atraumatic, normocephalic, normal inspection Eye exam: Present: normal appearance, PERRL, EOMI. Absent: scleral icterus, conjunctival injection, periorbital swelling ENT exam: Present: normal exam, mucous membranes moist Neck exam: Present: normal inspection. Absent: tenderness, meningismus, lymphadenopathy Respiratory exam: Present: normal lung sounds bilaterally, chest wall tenderness (Tenderness over the xiphoid.). Absent: respiratory distress, wheezes, rales, rhonchi, stridor Cardiovascular Exam: Present: regular rate, normal rhythm, normal heart sounds. Absent: systolic murmur, diastolic murmur, rubs, gallop, clicks GI/Abdominal exam: Present: soft, normal bowel sounds. Absent: distended, tenderness, guarding, rebound, rigid Extremities exam: Present: normal inspection, full ROM, normal capillary refill. Absent: tenderness, pedal edema, joint swelling, calf tenderness Back exam: Present: normal inspection Neurological exam: Present: alert, oriented X3, CN II-XII intact Psychiatric exam: Present: normal affect, normal mood Skin exam: Present: warm, dry, intact, normal color. Absent: rash Course Vital Signs 08/31/18 08/31/18 23:04 23:30 Temperature 97.8 F Pulse Rate 114 H 90 Respiratory 18 16 Rate Blood Pressure 130/86 103/89 O2 Sat by Pulse 100 97 Oximetry Chest Pain MDM - MDM Reevaluation patient reveals he is pain-free at this time after the injection of Toradol. X-rays are unremarkable EKG is negative for acute findings lab work is all within normal limits. The presentation is consistent with xiphoid pain/costochondritic pain. I did a long discussion with the patient's family regarding this. He will be discharged on appropriate anti-inflammatory medication he was encouraged again to stop smoking which she is planning to do. He will keep his follow-up with his new doctor and return if needed Disposition Clinical Impression: Chest wall syndrome, Costalchondritis, Xiphodynia Disposition: HOME SELF-CARE Condition: Good Instructions (If sedation given, give patient instructions): Costochondritis ( ED) Prescriptions: Ibuprofen 800 mg PO Q6HR PRN #20 tablet PRN Reason: Pain Is patient prescribed a controlled substance at d/c from ED?: No Referrals: None,Stated [Primary Care Provider] - 1-2 days
[2018-08-31 23:52] LABS: Basophils % (A) 0 %; Eosinophils # (A) 0.3 k/uL (0-0.7); Eosinophils % (A) 3 %; HCT 48.3 % (39.0-53.0); HGB 15.7 gm/dL (13.0-17.5); Lymphocytes # (A) 3.5 k/uL (1.0-4.8); Lymphocytes % (A) 40 %; MCH 30.5 pg (25.0-35.0); MCHC 32.6 g/dL (31.0-37.0); MCV 93.6 fL (80.0-100.0); Mean Platelet Volume 8.3; Monocytes # (A) 0.5 k/uL (0-1.0); Monocytes % (A) 5 %; Neutrophils # (A) 4.4 k/uL (1.3-7.7); Neutrophils % (A) 50 %; Platelet Count 212 k/uL (150-450); RBC 5.16 m/uL (4.30-5.90); RDW 12.5 % (11.5-15.5); WBC 8.8 k/uL (3.8-10.6)
[2018-08-31 23:59] LABS: ALT 32 U/L (21-72); AST 19 U/L (17-59); Albumin 4.6 g/dL (3.5-5.0); Alkaline Phosphatase 35 U/L (38-126); Anion Gap 11 mmol/L; Blood Urea Nitrogen 17 mg/dL (9-20); Calcium 9.9 mg/dL (8.4-10.2); Carbon Dioxide 22 mmol/L (22-30); Chloride 107 mmol/L (98-107); Glucose 94 mg/dL (74-99); Potassium 3.9 mmol/L (3.5-5.1); Sodium 140 mmol/L (137-145); Total Bilirubin 0.5 mg/dL (0.2-1.3); Total Protein 7.6 g/dL (6.3-8.2)
[2018-09-01 00:01] LABS: D-Dimer <0.17 mg/L FEU (<0.60); INR 0.9 (<1.2); Partial Thromboplastin Time 23.7 sec (22.0-30.0); Prothrombin Time 9.5 sec (9.0-12.0)
[2018-09-01 00:13] LABS: Creatine Kinase 61 U/L (55-170)
[2018-09-01 00:26] LABS: Creatine Kinase MB <0.2 ng/mL (0.0-2.4); Troponin I <0.012 ng/mL (0.000-0.034)
--- NOTE | 2018-09-01 00:38 | XR ---
EXAMINATION TYPE: XR chest 2V DATE OF EXAM: 09/01/2018 COMPARISON: 08/12/2018 HISTORY: Chest pain TECHNIQUE: Frontal and lateral views of the chest are obtained. FINDINGS: Heart and mediastinum are normal. Lungs are clear. Diaphragm is normal. Bony thorax appear s normal. There is 5 mm granuloma in the right upper lobe. IMPRESSION: No active cardiopulmonary disease. No change.
[2018-09-01 00:48] VITALS: BP 111/82; PULSE 90; RESP 16; TEMP 98
== END 2018-09-01 00:48 | disposition home or self-care (01) ==
LOC: EC 23:03
DX: M94.0 Chondrocostal junction syndrome [Tietze] (principal); F17.200 Nicotine dependence, unspecified, uncomplicated
CPT/HCPCS: 36415; 93005; 85379; 80053; 82550; 82553; 83735; 84484; 85025; 85610; 85730; 99285; 96374; J1885; 71046

== ENCOUNTER 2018-10-04 12:05 | Emergency (ER) | payer OTHER ==
[2018-10-04 12:11] VITALS: TEMP 98.7
[2018-10-04] MEDS ORDERED: NITROGLYCERIN OINT 1 INCH/GM PACKET TOPICAL STA (12:26)
[2018-10-04] MEDS ORDERED: ASPIRIN 81 MG PO STA (12:26)
--- NOTE | 2018-10-04 12:30 | ED ---
General Adult HPI - General Chief complaint: Chest Pain Stated complaint: Chest pain Time Seen by Provider: 10/04/18 12:23 Source: patient, family, RN notes reviewed Mode of arrival: wheelchair Limitations: no limitations - History of Present Illness Initial comments: Patient is a pleasant 38-year-old male presenting to the emergency Department with complaints of chest discomfort. Onset of symptoms was prior to arrival while patient was at rest. Patient is near symptom-free at this time. Discomfort felt somewhat sharp with radiation to the back and left arm. Patient did have some mild associated dyspnea that is resolved. Chest discomfort is near resolved at this time. has a history of similar symptoms 3-4 times previously. No known cardiac history. Family questions if symptoms could be caused by panic attacks. Patient states he does have a lot of stress. - Related Data Previous Rx's Medication Instructions Recorded Ibuprofen 800 mg PO Q6HR PRN #20 tablet 09/01/18 Allergies Allergy/AdvReac Type Severity Reaction Status Date / Time No Known Allergies Allergy Verified 10/04/18 13:09 Review of Systems ROS Statement: Those systems with pertinent positive or pertinent negative responses have been documented in the HPI. ROS Other: All systems not noted in ROS Statement are negative. Constitutional: Denies: fever Eyes: Denies: eye pain ENT: Denies: ear pain Respiratory: Denies: cough Cardiovascular: Reports: as per HPI, chest pain Endocrine: Denies: fatigue Gastrointestinal: Denies: abdominal pain Genitourinary: Denies: dysuria Musculoskeletal: Denies: arthralgia Skin: Denies: rash Neurological: Denies: weakness Past Medical History Past Medical History: No Reported History Additional Past Medical History / Comment(s): Kidney stone 2006 History of Any Multi-Drug Resistant Organisms: None Reported Additional Past Surgical History / Comment(s): Left Orchectomy Past Psychological History: No Psychological Hx Reported Smoking Status: Current every day smoker Past Alcohol Use History: None Reported Past Drug Use History: None Reported General Exam Limitations: no limitations General appearance: alert, in no apparent distress Head exam: Present: atraumatic Eye exam: Present: normal appearance, PERRL ENT exam: Present: normal oropharynx Neck exam: Present: normal inspection Respiratory exam: Present: normal lung sounds bilaterally Cardiovascular Exam: Present: regular rate, normal rhythm Expanded Peripheral pulses: 2+: Radial (R), Radial (L), Dorsalis Pedis (R), Dorsalis Pedis (L) GI/Abdominal exam: Present: soft. Absent: tenderness Extremities exam: Present: normal inspection. Absent: pedal edema, calf tenderness Neurological exam: Present: alert Psychiatric exam: Present: normal affect, normal mood Skin exam: Present: normal color Course Vital Signs 10/04/18 12:08 Temperature 98.7 F Pulse Rate 87 Respiratory 18 Rate Blood Pressure 141/90 O2 Sat by Pulse 100 Oximetry EKG Findings - EKG Comments: EKG Findings:: Sinus rhythm at 90. MI 142. QRS 78. QT 352. QTC 4:30. Normal axis. PVC present. Normal QRS. No acute ST change. Medical Decision Making - Medical Decision Making Patient reevaluated and resting comfortably in bed. Patient updated on results. Patient advised admission for further evaluation and cardiac evaluation. Patient is made aware that heart attack has not been ruled out at this time as well as risk for heart attack or other disease process in the near future. Patient is advised to stay in the hospital. Patient does demonstrate medical decision making. Patient states he has to go home to take care of his child. Patient states he will return later. Patient is advised to do this however is also advised to follow-up primary care physician in the next day if he does not. Patient is also advised that he will likely need stress test and did take an aspirin daily. Patient will leave AGAINST MEDICAL ADVICE. - Lab Data Result diagrams: 10/04/18 12:32 10/04/18 12:22 Lab Results 10/04/18 10/04/18 10/04/18 Range/Units 12:22 12:22 12:32 WBC 6.2 (3.8-10.6) k/uL RBC 4.59 (4.30-5.90) m/uL Hgb 14.7 (13.0-17.5) gm/dL Hct 42.9 (39.0-53.0) % MCV 93.5 (80.0-100.0) fL MCH 31.9 (25.0-35.0) pg MCHC 34.1 (31.0-37.0) g/dL RDW 12.7 (11.5-15.5) % Plt Count 210 (150-450) k/uL Neutrophils % 50 % Lymphocytes % 36 % Monocytes % 8 % Eosinophils % 4 % Basophils % 1 % Neutrophils # 3.1 (1.3-7.7) k/uL Lymphocytes # 2.2 (1.0-4.8) k/uL Monocytes # 0.5 (0-1.0) k/uL Eosinophils # 0.3 (0-0.7) k/uL Basophils # 0.0 (0-0.2) k/uL PT (9.0-12.0) sec INR (<1.2) APTT (22.0-30.0) sec D-Dimer (<0.60) mg/L FEU Sodium 144 (137-145) mmol/L Potassium 4.0 (3.5-5.1) mmol/L Chloride 109 H (98-107) mmol/L Carbon Dioxide 27 (22-30) mmol/L Anion Gap 8 mmol/L BUN 16 (9-20) mg/dL Creatinine 0.99 (0.66-1.25) mg/dL Est GFR (CKD-EPI)AfAm >90 (>60 ml/min/1.73 sqM) Est GFR (CKD-EPI)NonAf >90 (>60 ml/min/1.73 sqM) Glucose 90 (74-99) mg/dL Calcium 10.3 H (8.4-10.2) mg/dL Magnesium 1.9 (1.6-2.3) mg/dL Total Bilirubin 0.4 (0.2-1.3) mg/dL AST 17 (17-59) U/L ALT 35 (21-72) U/L Alkaline Phosphatase 35 L (38-126) U/L Creatine Kinase 56 (55-170) U/L Troponin I <0.012 (0.000-0.034) ng/mL Total Protein 7.4 (6.3-8.2) g/dL Albumin 4.6 (3.5-5.0) g/dL 10/04/18 Range/Units 12:32 WBC (3.8-10.6) k/uL RBC (4.30-5.90) m/uL Hgb (13.0-17.5) gm/dL Hct (39.0-53.0) % MCV (80.0-100.0) fL MCH (25.0-35.0) pg MCHC (31.0-37.0) g/dL RDW (11.5-15.5) % Plt Count (150-450) k/uL Neutrophils % % Lymphocytes % % Monocytes % % Eosinophils % % Basophils % % Neutrophils # (1.3-7.7) k/uL Lymphocytes # (1.0-4.8) k/uL Monocytes # (0-1.0) k/uL Eosinophils # (0-0.7) k/uL Basophils # (0-0.2) k/uL PT 9.4 (9.0-12.0) sec INR 0.9 (<1.2) APTT 23.6 (22.0-30.0) sec D-Dimer <0.17 (<0.60) mg/L FEU Sodium (137-145) mmol/L Potassium (3.5-5.1) mmol/L Chloride (98-107) mmol/L Carbon Dioxide (22-30) mmol/L Anion Gap mmol/L BUN (9-20) mg/dL Creatinine (0.66-1.25) mg/dL Est GFR (CKD-EPI)AfAm (>60 ml/min/1.73 sqM) Est GFR (CKD-EPI)NonAf (>60 ml/min/1.73 sqM) Glucose (74-99) mg/dL Calcium (8.4-10.2) mg/dL Magnesium (1.6-2.3) mg/dL Total Bilirubin (0.2-1.3) mg/dL AST (17-59) U/L ALT (21-72) U/L Alkaline Phosphatase (38-126) U/L Creatine Kinase (55-170) U/L Troponin I (0.000-0.034) ng/mL Total Protein (6.3-8.2) g/dL Albumin (3.5-5.0) g/dL - Radiology Data Radiology results: report reviewed (Chest x-ray reported as no acute process. Unable to view film at this time secondary to PACs system being down.) Disposition Clinical Impression: Chest pain Disposition: Left Against Medical Advice Instructions (If sedation given, give patient instructions): Chest Pain (ED) Additional Instructions: Aspirin daily. Please return today or follow-up with primary care physician as soon as possible. Return at any time for chest pain, shortness of breath, worsening or changing symptoms or any other concerns. He will need further evaluation including further blood work and probable stress test or other testing. Is patient prescribed a controlled substance at d/c from ED?: No Referrals: Allyson Mora MD [STAFF PHYSICIAN] - 1-2 days Time of Disposition: 15:17
[2018-10-04 12:51] LABS: Basophils % (A) 1 %; Eosinophils # (A) 0.3 k/uL (0-0.7); Eosinophils % (A) 4 %; HCT 42.9 % (39.0-53.0); HGB 14.7 gm/dL (13.0-17.5); Lymphocytes # (A) 2.2 k/uL (1.0-4.8); Lymphocytes % (A) 36 %; MCH 31.9 pg (25.0-35.0); MCHC 34.1 g/dL (31.0-37.0); MCV 93.5 fL (80.0-100.0); Monocytes # (A) 0.5 k/uL (0-1.0); Monocytes % (A) 8 %; Neutrophils # (A) 3.1 k/uL (1.3-7.7); Neutrophils % (A) 50 %; Platelet Count 210 k/uL (150-450); RBC 4.59 m/uL (4.30-5.90); RDW 12.7 % (11.5-15.5); WBC 6.2 k/uL (3.8-10.6)
[2018-10-04 13:04] LABS: INR 0.9 (<1.2); Partial Thromboplastin Time 23.6 sec (22.0-30.0); Prothrombin Time 9.4 sec (9.0-12.0)
[2018-10-04 13:18] LABS: ALT 35 U/L (21-72); AST 17 U/L (17-59); Albumin 4.6 g/dL (3.5-5.0); Alkaline Phosphatase 35 U/L (38-126); Anion Gap 8 mmol/L; Blood Urea Nitrogen 16 mg/dL (9-20); Calcium 10.3 mg/dL (8.4-10.2); Carbon Dioxide 27 mmol/L (22-30); Chloride 109 mmol/L (98-107); Creatine Kinase 56 U/L (55-170); Glucose 90 mg/dL (74-99); Magnesium 1.9 mg/dL (1.6-2.3); Sodium 144 mmol/L (137-145); Total Bilirubin 0.4 mg/dL (0.2-1.3); Total Protein 7.4 g/dL (6.3-8.2)
[2018-10-04 13:19] LABS: D-Dimer <0.17 mg/L FEU (<0.60)
--- NOTE | 2018-10-04 14:25 | XR ---
EXAMINATION TYPE: XR chest 2V DATE OF EXAM: 10/04/2018 COMPARISON: None INDICATION: Chest pain TECHNIQUE: Frontal and lateral views of the chest are obtained. FINDINGS: The heart size is normal. The pulmonary vasculature is normal. The lungs are clear. IMPRESSION: 1. No acute pulmonary process.
[2018-10-04 16:22] VITALS: BP 131/90; PULSE 85; RESP 16
== END 2018-10-04 16:28 | disposition left against medical advice (07) ==
LOC: EC 12:05
DX: R07.89 Other chest pain (principal); F17.200 Nicotine dependence, unspecified, uncomplicated; Z53.20 Procedure and treatment not carried out because of patient's decision for unspecified reasons
CPT/HCPCS: 36415; 71046; 80053; 82550; 83735; 84484; 85025; 85379; 85610; 85730; 93005; 99285

== ENCOUNTER 2018-10-04 16:47 | Observation (INO) | payer OTHER ==
[2018-10-04] MEDS ORDERED: ASPIRIN 81 MG PO STA (17:27)
[2018-10-04] MEDS ORDERED: ALPRAZolam 0.5 MG TAB PO STA (17:27)
[2018-10-04] MEDS ORDERED: NITROGLYCERIN SL TABS 0.4 MG TAB SUBLINGUAL PRN (17:27)
--- NOTE | 2018-10-04 17:27 | ED ---
General Adult HPI - General Chief complaint: Chest Pain Stated complaint: Chest pain Time Seen by Provider: 10/04/18 16:56 Source: patient, family, RN notes reviewed Mode of arrival: ambulatory Limitations: no limitations - History of Present Illness Initial comments: Patient is a pleasant 38-year-old male returning emergency Department with complaints of chest discomfort. Symptoms started earlier in the day. Symptoms are mild at this time. Patient was somewhat short of breath earlier. Patient has had similar symptoms a couple of times previously however is unclear why. Patient was in the emergency department earlier and left back of his family. Patient has return. - Related Data Previous Rx's Medication Instructions Recorded Ibuprofen 800 mg PO Q6HR PRN #20 tablet 09/01/18 Allergies Allergy/AdvReac Type Severity Reaction Status Date / Time No Known Allergies Allergy Verified 10/04/18 17:09 Review of Systems ROS Statement: Those systems with pertinent positive or pertinent negative responses have been documented in the HPI. ROS Other: All systems not noted in ROS Statement are negative. Constitutional: Denies: fever Eyes: Denies: eye pain ENT: Denies: ear pain Respiratory: Reports: as per HPI Cardiovascular: Reports: chest pain Endocrine: Denies: fatigue Gastrointestinal: Denies: abdominal pain Genitourinary: Denies: dysuria Musculoskeletal: Denies: back pain Skin: Denies: rash Neurological: Denies: weakness Past Medical History Past Medical History: No Reported History Additional Past Medical History / Comment(s): Kidney stone 2006 History of Any Multi-Drug Resistant Organisms: None Reported Additional Past Surgical History / Comment(s): Left Orchectomy Past Psychological History: No Psychological Hx Reported Smoking Status: Current every day smoker Past Alcohol Use History: None Reported Past Drug Use History: None Reported General Exam Limitations: no limitations General appearance: alert, in no apparent distress Head exam: Present: atraumatic Eye exam: Present: normal appearance Neck exam: Present: normal inspection Respiratory exam: Present: normal lung sounds bilaterally. Absent: chest wall tenderness Cardiovascular Exam: Present: regular rate, normal rhythm Expanded Peripheral pulses: 2+: Radial (R), Radial (L), Dorsalis Pedis (R), Dorsalis Pedis (L) GI/Abdominal exam: Present: soft. Absent: tenderness Extremities exam: Present: normal inspection. Absent: pedal edema, calf tenderness Neurological exam: Present: alert Psychiatric exam: Present: normal affect, normal mood Skin exam: Present: normal color Course Vital Signs 10/04/18 16:48 Temperature 97.6 F Pulse Rate 98 Respiratory 18 Rate Blood Pressure 157/104 O2 Sat by Pulse 99 Oximetry EKG Findings - EKG Comments: EKG Findings:: Sinus rhythm 84. ND 154. QRS 80. QT 366. QTc 432. Normal axis. Normal QRS. No acute ST change. Medical Decision Making - Medical Decision Making Prior chart again reviewed. Case was discussed with Dr. Hair, who will admit for hospital call. Disposition Clinical Impression: Chest pain Disposition: ADMITTED IP TO THIS HOSP Is patient prescribed a controlled substance at d/c from ED?: No Referrals: None,Stated [Primary Care Provider] - 1-2 days Decision Time: 17:27
[2018-10-04] MEDS: NITROGLYCERIN OINT 1 INCH/GM PACKET TOPICAL SCH ×2 (18:00→23:50)
[2018-10-04] MEDS ORDERED: IBUPROFEN 400 MG TAB PO PRN (18:51)
[2018-10-04] MEDS ORDERED: ACETAMINOPHEN TAB 325 MG TAB PO PRN (18:51)
[2018-10-04] MEDS ORDERED: MELATONIN 3 MG TABLET PO PRN (18:51)
[2018-10-04] MEDS ORDERED: ONDANSETRON 4 MG/2 ML VIAL IVP PRN (18:51)
[2018-10-04] MEDS ORDERED: NALOXONE 0.4 MG/ML 1 ML VIAL IV PRN (18:51)
[2018-10-04] MEDS ORDERED: ALPRAZolam 0.5 MG TAB PO PRN (18:55)
--- NOTE | 2018-10-04 19:01 | P.HPIM ---
History of Present Illness H&P Date: 10/04/18 Chief Complaint: chest pain Patient is a 38-year-old male with past medical history of kidney stones and anxiety who presented to the ER with complaints of chest discomfort. In the ER he underwent an extensive evaluation. His initial vital signs within normal limits. Troponin was negative and EKG was unremarkable. Chest x- ray was negative. He received a dose of aspirin and Xanax which helped relieve his symptoms. He initially presented to the ER earlier in the day of the left AMA as he needed to care for his son. He then re-presented later this evening. He has been admitted as chest pain observation for further monitoring. Patient seen and examined at bedside. He reports having increased stress and anxiety over the last several months. He reports that he gets some retrosternal chest pain that can be sharp in nature. Typically the pain is transient and then he feels himself getting more anxious and excited. This leads to palpitations and dizziness. He has had some episodes of shortness of breath associated with this but it does not always occur. One time he did have some radiation up into his right jaw. He denies any nausea, vomiting, numbness , or tingling associated with this. He states he feels as though past attack might start. He states that last anywhere from a few minutes up to an hour. He states that once it starts just difficult to control this and haven't stopped. He has taken Klonopin in the past for anxiety but has been unable to take any recently. He does not have a family physician and is searching for one. He denies any recent cough, cold, fever, flu. 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 Review of Systems Pertinent positives and negatives as discussed in HPI, a complete review of systems was performed and all other systems are negative. Past Medical History Additional Past Medical History / Comment(s): Kidney stone 2005, cyst on spinal cord History of Any Multi-Drug Resistant Organisms: None Reported Additional Past Surgical History / Comment(s): Left Orchectomy Past Psychological History: No Psychological Hx Reported Smoking Status: Current every day smoker Past Alcohol Use History: None Reported Past Drug Use History: None Reported - Past Family History Father Family Medical History: No Reported History Additional Family Medical History / Comment(s): great grandfather CHF Mother Family Medical History: No Reported History Medications and Allergies Home Medications Medication Instructions Recorded Confirmed Type Ibuprofen 800 mg PO Q6HR PRN #20 tablet 09/01/18 10/04/18 Rx Allergies Allergy/AdvReac Type Severity Reaction Status Date / Time No Known Allergies Allergy Verified 10/04/18 17:09 Physical Exam Osteopathic Statement: *. No significant issues noted on an osteopathic structural exam other than those noted in the History and Physical/Consult. Vitals: Vital Signs Temp Pulse Resp BP Pulse Ox 10/04/18 17:41 78 18 122/95 100 10/04/18 16:48 97.6 F 98 18 157/104 99 Intake and Output 10/04/18 10/04/18 10/04/18 06:59 14:59 22:59 Other: Weight 89.721 kg General: non toxic, mild distress, appears at stated age, normal weight Derm: no unusual rashes/lesions no unusual ecchymoses, warm, dry Head: atraumatic, normocephalic, symmetric Eyes: EOMI, no lid lag, anicteric sclera, pupils equal round reactive to light ENT: Nose and ears atraumatic, no thrush, no pharyngeal erythema Neck: No thyromegaly, no cervical lymphadenopathy, trachea midline, supple Mouth: no lip lesion, mucus membranes moist Cardiovascular: S1S2 reg, no murmur, positive posterior tibial pulse bilateral, no edema, capillary refill less than 2 seconds, chest pain not reproducible Lungs: CTA bilateral, no rhonchi, no rales , no accessory muscle use Abdominal: soft, nontender to palpation, no guarding, no appreciable organomegaly, normal bowel sounds Ext: no gross muscle atrophy, muscle strength 5 out of 5 in all 4 extremities grossly, no contractures, Neuro: CN II-XI grossly intact, light touch intact all 4 extremities, finger to nose within normal limits, Psych: Alert, oriented, anxious, agitated Results Comments: EKG is reviewed by myself reveals normal sinus rhythm at a rate of 84, IA 154, QRS 80, QTC 432, normal axis, no significant ST-T wave changes Chest x-ray: report reviewed Thrombosis Risk Factor Assmnt - DVT/VTE Prophylaxis DVT/VTE Prophylaxis: Mechanical Prophylaxis ordered Assessment and Plan Assessment: Chest pain, likely secondary to acute anxiety -When necessary Xanax. Plan on discharge home with Xanax will need to establish with PCP to be transitioned to something like Lexapro or Paxil. Consider psych consult to get hooked in with community mental health services unless this can be done through social work. -Aspirin -Telemetry - serial troponin - cholesterol profile in AM -Cardiology consultation -Nothing by mouth after midnight Tobacco abuse -Smoking cessation -Nicotine replacement The patient is placed in observation with an anticipated less than 2 per night stay for evaluation of chest pain. Surrogate decision-maker: Significant other- Julieta Adamson CODE STATUS:Full DVT prophylaxis: SCDs Discussed with: Patient, family Anticipated discharge date: [address]: home A total of 55 minutes was spent on the care of this complex patient more than 50 % of the time was spent in counseling and care coordination.
[2018-10-04] MEDS: NICOTINE 21MG/24HR PATCH TRANSDERM SCH (23:46)
--- NOTE | 2018-10-05 07:24 | P.CRDCN ---
History of Present Illness Consult date: 10/05/18 Chief complaint: Chest pain History of present illness: This is a pleasant 38-year-old gentleman with no significant past medical history of coronary artery disease, diabetes, hypertension, dyslipidemia, presented to the emergency room complaining of chest discomfort. Currently he is under a lot of stress as well as anxiety. He take care of his son. He was in his usual state of health yesterday when he started experiencing discomfort in the mid of the chest, as a sharp kind of discomfort, without any radiation to the arm or neck or shoulders and without any associated symptoms of shortness of breath, sweating, dizziness or lightheadedness, heart racing or fluttering, or syncope. He initially presented to the emergency room and left AMA then he came back again with a chest discomfort. He was ruled out for acute coronary event. The EKG showed sinus rhythm without any stress ST or T-wave abnormalities. The cardiac enzymes were checked and came in to be unremarkable. The chest x-ray did not show any acute abnormalities. The patient does not have any significant past medical history or surgical history. Unfortunately he is a smoker but he is working on smoking cessation and currently he does have nicotine patch on his right arm. There is no family history of premature coronary artery disease. 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 History of Any Multi-Drug Resistant Organisms: None Reported Additional Past Surgical History / Comment(s): Left Orchectomy Past Anesthesia/Blood Transfusion Reactions: No Reported Reaction Smoking Status: Current every day smoker - Past Family History Father Family Medical History: No Reported History Additional Family Medical History / Comment(s): great grandfather CHF Mother Family Medical History: No Reported History Medications and Allergies Home Medications Medication Instructions Recorded Confirmed Type Ibuprofen 800 mg PO Q6HR PRN #20 tablet 09/01/18 10/04/18 Rx Allergies Allergy/AdvReac Type Severity Reaction Status Date / Time No Known Allergies Allergy Verified 10/04/18 23:27 Physical Exam Vitals: Vital Signs Temp Pulse Pulse Pulse Resp BP BP 10/05/18 04:00 98.0 F 67 15 106/67 10/05/18 02:37 15 10/04/18 23:38 15 10/04/18 23:17 98.0 F 67 15 130/67 10/04/18 21:45 72 105/82 10/04/18 20:45 77 119/77 10/04/18 19:45 84 123/91 10/04/18 18:45 78 18 102/82 10/04/18 17:41 78 18 122/95 10/04/18 16:48 97.6 F 98 18 157/104 Pulse Ox 10/05/18 04:00 99 10/05/18 02:37 10/04/18 23:38 10/04/18 23:17 100 10/04/18 21:45 97 10/04/18 20:45 96 10/04/18 19:45 97 10/04/18 18:45 96 10/04/18 17:41 100 10/04/18 16:48 99 Intake and Output 10/04/18 10/05/18 10/05/18 22:59 06:59 14:59 Other: Voiding Method Toilet # Voids 1 Weight 89.721 kg - Constitutional General appearance: no acute distress - Respiratory Respiratory: - Cardiovascular Rhythm: regular Heart sounds: Results Cardiac Enzymes 10/04/18 10/05/18 Range/Units 18:18 00:13 Troponin I <0.012 <0.012 (0.000-0.034) ng/mL Current Medications Generic Name Dose Route Start Last Admin Trade Name Freq PRN Reason Stop Dose Admin Acetaminophen 650 mg 10/04/18 18:51 Tylenol Tab PO Q6HR PRN Mild Pain or Fever > 100.5 Alprazolam 0.5 mg 10/04/18 18:55 10/04/18 23:48 Xanax PO 0.5 mg TID PRN Administration Anxiety Aspirin 325 mg 10/05/18 09:00 Aspirin PO DAILY SONYA Ibuprofen 400 mg 10/04/18 18:51 Motrin PO Q6HR PRN Mild Pain or Fever > 100.5 Melatonin 3 mg 10/04/18 18:51 10/05/18 00:14 Melatonin PO 3 mg HS PRN Administration Insomnia Naloxone HCl 0.2 mg 10/04/18 18:51 Narcan IV Q2M PRN Opioid Reversal Nicotine 1 patch 10/04/18 19:00 10/04/18 23:46 Habitrol 21mg/24hr Patch TRANSDERM 1 patch DAILY SONYA Administration Nitroglycerin 0.5 inch 10/04/18 18:00 10/04/18 23:50 Nitro-Bid Oint TOPICAL Not Given Q6HR SONYA Nitroglycerin 0.4 mg 10/04/18 17:27 Nitrostat SUBLINGUAL Q5M PRN Chest Pain Ondansetron HCl 4 mg 10/04/18 18:51 Zofran IVP Q8HR PRN Nausea And Vomiting Intake and Output 10/04/18 10/05/18 10/05/18 22:59 06:59 14:59 Other: Voiding Method Toilet # Voids 1 Weight 89.721 kg Assessment and Plan Assessment: Assessment #1 atypical chest discomfort #2 significant history of smoking Plan #1 the patient was ruled out for acute coronary event. The cardiac enzymes are unremarkable. The EKG did not show any ischemic changes. #2 I will obtain an exercise treadmill stress test to rule out severe CAD. Also will obtain an echocardiogram was Doppler to assess the LV function #3 further recommendation to follow that. Thank you for allowing us participate in his care
[2018-10-05 07:35] VITALS: RESP 18
[2018-10-05] MEDS ORDERED: ASPIRIN 325 MG TAB PO SCH (09:00)
[2018-10-05] MEDS: NICOTINE 21MG/24HR PATCH TRANSDERM SCH (10:54)
[2018-10-05 12:25] VITALS: BP 115/74; PULSE 70; TEMP 97.6
--- NOTE | 2018-10-05 14:26 | EST ---
EXERCISE STRESS AGE: 38 SEX: M HT: 70" WT: 197 PROTOCOL: Jhon Stress Test STAGE: 4 DURATION OF EXERCISE: 7:00 HEART RATE REST: 99 BLOOD PRESSURE REST: 135/85 MAXIMUM HEART RATE ACHIEVED: 165 MAXIMUM BLOOD PRESSURE: 154/70 85% MPHR: 156 100% MPHR: 183 METS: 8.5 INDICATIONS: Chest pain. CLINICAL INFORMATION: STRESS DATA: Pretesting physical examination showed a heart rate of 99, pressure is 135/85 mmHg. Baseline EKG showed sinus mechanism. The patient exercised on the treadmill according to Jhon protocol for a total of 7 minutes and achieved 8.5 METS. Max heart rate was 165, which is about 90% of maximum predicted heart rate. Maximum blood pressure was was 154/70 mmHg clinically the patient did not have any symptoms of chest pain or chest discomfort and the EKG did not show any significant ST or T-wave abnormalities concerning for ischemia. CONCLUSION: 1. Good exercise tolerance. 2. Normal EKG in response to exercise. 3. Essentially normal stress test for the patient. MMODL / IJN: [id number] /
--- NOTE | 2018-10-05 14:56 | P.DS ---
Providers Date of admission: 10/04/18 17:27 Expected date of discharge: 10/05/18 Attending physician: Slava Hair MD Consults: 10/04/18 17:27 Consult Physician Urgent Consulting Provider: Avila Oakley Consult Reason/Comments: cp Do you want consulting provider notified?: Yes Primary care physician: Stated None Hospital Course: Discharge Diagnosis: Acute anxiety attack Non cardiac chest pain due to anxiety Tobacco abuse Hospital Course: Patient is a 38-year-old male with past medical history of kidney stones and anxiety who presented to the ER with complaints of chest discomfort. In the ER he underwent an extensive evaluation. His initial vital signs within normal limits. Troponin was negative and EKG was unremarkable. Chest x-ray was negative. He received a dose of aspirin and Xanax which helped relieve his symptoms. He initially presented to the ER earlier in the day of the left AMA as he needed to care for his son. He then re-presented later that evening. He was admitted as chest pain observation for further monitoring. His troponin and tele remained negative. He was seen by cardiology and underwent exercise stress test which was negtaive. Cholesterol level was borderline and will need to be monitored. His chest pain was felt to be due to acute anxiety attacks. He was g [email or web address] resources. I have stressed to him to follow with a PCP and get started on antianxiety medication. I have given him and RX for xanax in the meantime and Dr. Mora's information. Patient seen and examined at bedside. No chest pain, SOB, dizziness, or palpitations at this time. Vital signs reviewed and stable. General: non toxic, no distress, appears at stated age Derm: warm, dry Head: atraumatic, normocephalic, symmetric Eyes: EOMI, no lid lag, anicteric sclera Mouth: no lip lesion, mucus membranes moist Cardiovascular: S1S2 reg, no murmur, positive posterior tibial pulse bilateral, Lungs: CTA bilateral, no rhonchi, no rales , no accessory muscle use Abdominal: soft, nontender to palpation, no guarding, no appreciable organomegaly Ext: no gross muscle atrophy, no edema, no contractures Neuro: CN II-XI grossly intact, no focal neuro deficits Psych: Alert, oriented, anxious A total of 20 minutes of time were spent preparing this complex discharge summary . Pertinent Studies: stress test- normal Patient Condition at Discharge: Good Plan - Discharge Summary New Discharge Prescriptions: New ALPRAZolam [Xanax] 0.5 mg PO TID PRN #30 tab PRN Reason: Anxiety Discontinued Ibuprofen 800 mg PO Q6HR PRN #20 tablet PRN Reason: Pain Discharge Medication List ALPRAZolam [Xanax] 0.5 mg PO TID PRN #30 tab 10/05/18 [Rx] Follow up Appointment(s)/Referral(s): Allyson Mora MD [STAFF PHYSICIAN] - 1 Week None,Stated [Primary Care Provider] - 1-2 days Activity/Diet/Wound Care/Special Instructions: regular diet activity as tolerated [facility] [phone] Discharge Disposition: HOME SELF-CARE
--- NOTE | 2018-10-06 08:24 | ECHOF ---
Referral Reason:cp MEASUREMENTS -------- HEIGHT: 177.8 cm WEIGHT: 89.4 kg BP: 135/85 RVIDd: 2.9 cm (< 3.3) IVSd: 0.9 cm (0.6 - 1.1) LVIDd: 4.3 cm (3.9 - 5.3) LVPWd: 0.9 cm (0.6 - 1.1) IVSs: 1.3 cm LVIDs: 2.8 cm LVPWs: 1.3 cm LA Diam: 3.2 cm (2.7 - 3.8) LAESV Index (A-L): 15.28 ml/m Ao Diam: 3.1 cm (2.0 - 3.7) AV Cusp: 2.1 cm (1.5 - 2.6) MV EXCURSION: 16.920 mm (> 18.000) MV EF SLOPE: 113 mm/s (70 - 150) EPSS: 0.5 cm MV E Sancho: 0.95 m/s MV DecT: 199 ms MV A Sancho: 0.68 m/s MV E/A Ratio: 1.40 FINDINGS -------- Sinus rhythm. This was a technically good study. The left ventricular size is normal. Left ventricular wall thickness is normal. Overall left vent ricular systolic function is normal with, an EF between 60 - 65 %. The right ventricle is normal in size. Normal LA size by volume 22+/-6 ml/m2. The right atrium is normal in size. The aortic valve is trileaflet and appears structurally normal. The mitral valve is normal. There is trace mitral regurgitation. Trace tricuspid regurgitation present. There is no pulmonic regurgitation present. The aortic root size is normal. Normal inferior vena cava with normal inspiratory collapse consistent with estimated right atrial pre ssure of 5 mmHg. There is no pericardial effusion. CONCLUSIONS -------- 1. Sinus rhythm. 2. This was a technically good study. 3. The left ventricular size is normal. 4. Left ventricular wall thickness is normal. 5. Overall left ventricular systolic function is normal with, an EF between 60 - 65 %. 6. The right ventricle is normal in size. 7. Normal LA size by volume 22+/-6 ml/m2. 8. The right atrium is normal in size. 9. The aortic valve is trileaflet and appears structurally normal. 10. The mitral valve is normal. 11. There is trace mitral regurgitation. 12. Trace tricuspid regurgitation present. 13. There is no pulmonic regurgitation present. 14. The aortic root size is normal. 15. Normal inferior vena cava with normal inspiratory collapse consistent with estimated right atrial pressure of 5 mmHg. 16. There is no pericardial effusion. ENERGY CONSERVATION DIRECTOR: Avis Harrington RDCS
== END 2018-10-05 14:58 | disposition home or self-care (01) ==
LOC: EC 16:47 → 1SOBS 17:27
PROVIDERS: ADMIT Family Medicine; ATTEND Family Medicine
DX: F41.9 Anxiety disorder, unspecified (principal); R06.02 Shortness of breath; G96.19 Other disorders of meninges, not elsewhere classified; T42.4X6A Underdosing of benzodiazepines, initial encounter; F17.200 Nicotine dependence, unspecified, uncomplicated; Z87.442 Personal history of urinary calculi; Z82.49 Family history of ischemic heart disease and other diseases of the circulatory system
CPT/HCPCS: 93005; 99285; 93017; 93306; 80061; 84443; 84484 ×2; G0378 ×2; S4990 ×2

== ENCOUNTER 2018-10-26 22:45 | Emergency (ER) | payer OTHER ==
[2018-10-26 23:03] VITALS: BP 139/80; RESP 18
[2018-10-26] MEDS ORDERED: diphenhydrAMINE 50 MG/ML 1 ML VIAL IVP STA (23:47)
[2018-10-26] MEDS ORDERED: DEXAMETHASONE SOD PHOSPHATE 10 MG/ML 1 ML VIAL IV STA (23:47)
[2018-10-26] MEDS ORDERED: KETOROLAC 30 MG/ML 1 ML VIAL IVP STA (23:47)
[2018-10-26] MEDS ORDERED: METOCLOPRAMIDE 5 MG/ML 2 ML VIAL IVP STA (23:47)
[2018-10-26] MEDS ORDERED: SODIUM CHLORIDE 0.9% 1,000 ML IV ONE (23:47)
--- NOTE | 2018-10-26 23:51 | ED ---
General Adult HPI - General Chief complaint: ENT Stated complaint: Ringing in Lft Ear/ Headache Time Seen by Provider: 10/26/18 23:32 Source: patient Mode of arrival: ambulatory Limitations: no limitations - History of Present Illness Initial comments: Patient is a 38-year-old male who presents with a chief complaint headache, and a low pitched tinnitus of the left ear. Patient states this edema several days however today's headache got worse. He characterizes it as aching pain at the top of his head. He states that the headache started in his neck and moved forward. He states he has had headaches before but none like this. He was seen by his primary care doctor a week and a half ago and states that he was prescribed a Z-Krystian for an ear infection at that time. He finished the antibiotics. Patient denies fever, nausea or vomiting, chest pain or shortness of breath. - Related Data Previous Rx's Medication Instructions Recorded ALPRAZolam [Xanax] 0.5 mg PO TID PRN #30 tab 10/05/18 Allergies Allergy/AdvReac Type Severity Reaction Status Date / Time No Known Allergies Allergy Verified 10/26/18 23:03 Review of Systems ROS Statement: Those systems with pertinent positive or pertinent negative responses have been documented in the HPI. ROS Other: All systems not noted in ROS Statement are negative. 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 History of Any Multi-Drug Resistant Organisms: None Reported Additional Past Surgical History / Comment(s): Left Orchectomy Past Anesthesia/Blood Transfusion Reactions: No Reported Reaction Past Psychological History: Anxiety Smoking Status: Current every day smoker Past Alcohol Use History: None Reported Past Drug Use History: None Reported - Past Family History Father Family Medical History: No Reported History Additional Family Medical History / Comment(s): great grandfather CHF Mother Family Medical History: No Reported History General Exam Limitations: no limitations General appearance: alert, in no apparent distress Head exam: Present: atraumatic, normocephalic Eye exam: Present: normal appearance, PERRL, EOMI ENT exam: Present: normal exam, mucous membranes moist, TM's normal bilaterally Neck exam: Present: normal inspection, full ROM. Absent: tenderness, meningismus Respiratory exam: Present: normal lung sounds bilaterally. Absent: respiratory distress, wheezes Cardiovascular Exam: Present: regular rate, normal rhythm GI/Abdominal exam: Present: soft. Absent: distended, tenderness Rectal exam: Present: deferred Extremities exam: Present: normal inspection Back exam: Present: normal inspection Neurological exam: Present: alert, oriented X3, CN II-XII intact, normal gait. Absent: altered, abnormal gait Psychiatric exam: Present: normal affect, normal mood Skin exam: Present: warm, dry, intact Course Vital Signs 10/26/18 23:01 Temperature 98.6 F Pulse Rate 91 Respiratory 18 Rate Blood Pressure 139/80 O2 Sat by Pulse 98 Oximetry Medical Decision Making - Medical Decision Making Patient presents with a chief complaint of a headache. On initial evaluation, vitals are stable, patient is in no acute distress. Patient will be evaluated with basic labs including CAT scan of the head without contrast. Patient given a headache cocktail. The patient is neurologically intact, motor and sensation is intact. Romberg negative. 12:42 AM Lab evaluation the patient is unremarkable. Computed tomography scan of the head without contrast shows no acute process. Reevaluation, patient states that his headache is also improved. At this time he is stable for discharge. He was instructed to follow up with primary care 1-2 days, return to the ED if symptoms worsen or change. The patient's tinnitus, I explained that he is a fo llow-up with primary care if doesn't get better he needs to see an ear nose and throat doctor. He verbalizes understanding, he is stable for discharge. - Lab Data Result diagrams: 10/27/18 00:08 10/27/18 00:08 Lab Results 10/27/18 10/27/18 Range/Units 00:08 00:08 WBC 8.1 (3.8-10.6) k/uL RBC 4.89 (4.30-5.90) m/uL Hgb 15.0 (13.0-17.5) gm/dL Hct 44.9 (39.0-53.0) % MCV 91.8 (80.0-100.0) fL MCH 30.7 (25.0-35.0) pg MCHC 33.5 (31.0-37.0) g/dL RDW 12.6 (11.5-15.5) % Plt Count 216 (150-450) k/uL Neutrophils % 48 % Lymphocytes % 41 % Monocytes % 6 % Eosinophils % 3 % Basophils % 1 % Neutrophils # 3.9 (1.3-7.7) k/uL Lymphocytes # 3.3 (1.0-4.8) k/uL Monocytes # 0.5 (0-1.0) k/uL Eosinophils # 0.3 (0-0.7) k/uL Basophils # 0.1 (0-0.2) k/uL Sodium 138 (137-145) mmol/L Potassium 4.1 (3.5-5.1) mmol/L Chloride 106 (98-107) mmol/L Carbon Dioxide 25 (22-30) mmol/L Anion Gap 7 mmol/L BUN 16 (9-20) mg/dL Creatinine 0.95 (0.66-1.25) mg/dL Est GFR (CKD-EPI)AfAm >90 (>60 ml/min/1.73 sqM) Est GFR (CKD-EPI)NonAf >90 (>60 ml/min/1.73 sqM) Glucose 92 (74-99) mg/dL Calcium 9.8 (8.4-10.2) mg/dL Disposition Clinical Impression: Tension headache Disposition: HOME SELF-CARE Instructions (If sedation given, give patient instructions): Tension Headache (ED) Is patient prescribed a controlled substance at d/c from ED?: No Referrals: Yaakov Madrid MD [Primary Care Provider] - 1-2 days
[2018-10-27 00:15] LABS: Basophils # (A) 0.1 k/uL (0-0.2); Basophils % (A) 1 %; Eosinophils # (A) 0.3 k/uL (0-0.7); Eosinophils % (A) 3 %; HCT 44.9 % (39.0-53.0); Lymphocytes # (A) 3.3 k/uL (1.0-4.8); Lymphocytes % (A) 41 %; MCH 30.7 pg (25.0-35.0); MCHC 33.5 g/dL (31.0-37.0); MCV 91.8 fL (80.0-100.0); Mean Platelet Volume 7.8; Monocytes # (A) 0.5 k/uL (0-1.0); Monocytes % (A) 6 %; Neutrophils # (A) 3.9 k/uL (1.3-7.7); Neutrophils % (A) 48 %; Platelet Count 216 k/uL (150-450); RBC 4.89 m/uL (4.30-5.90); RDW 12.6 % (11.5-15.5); WBC 8.1 k/uL (3.8-10.6)
[2018-10-27 00:25] LABS: Anion Gap 7 mmol/L; Blood Urea Nitrogen 16 mg/dL (9-20); Calcium 9.8 mg/dL (8.4-10.2); Carbon Dioxide 25 mmol/L (22-30); Chloride 106 mmol/L (98-107); Glucose 92 mg/dL (74-99); Potassium 4.1 mmol/L (3.5-5.1); Sodium 138 mmol/L (137-145)
[2018-10-27 01:02] VITALS: PULSE 78; TEMP 98.3
--- NOTE | 2018-10-27 08:43 | CT ---
EXAMINATION TYPE: CT brain wo con DATE OF EXAM: 10/27/2018 COMPARISON: None. HISTORY: Patient presents with headache and left sided ear ringing. CT DLP: 1158.4 mGycm. Automated Exposure Control for Dose Reduction was Utilized. TECHNIQUE: CT scan of the head is performed without contrast. FINDINGS: There is no acute intracranial hemorrhage, mass effect, or midline shift identified. The ventricles and sulci are within normal limits in size. Solo-white matter differentiation is preserve d. The globes are intact and the visualized sinuses are clear. IMPRESSION: No acute intracranial hemorrhage, mass effect, or midline shift is seen. Preliminary report was provided by [facility].
== END 2018-10-27 01:02 | disposition home or self-care (01) ==
LOC: EC 22:45
DX: G44.209 Tension-type headache, unspecified, not intractable (principal); H93.12 Tinnitus, left ear; F17.200 Nicotine dependence, unspecified, uncomplicated
CPT/HCPCS: 99284; 96374; 96375 ×3; 96361; J1200; 36415; 70450; 80048; 85025

== ENCOUNTER 2019-01-09 05:32 | Emergency (ER) | payer OTHER ==
[2019-01-09 05:39] VITALS: RESP 18
[2019-01-09] MEDS ORDERED: LORazepam 1 MG TAB PO STA (05:55)
--- NOTE | 2019-01-09 05:58 | ED ---
Arrhythmia/Palpitations HPI - General Chief Complaint: Arrhythmia/Palpitations Stated Complaint: heart racing,sweating Time Seen by Provider: 01/09/19 05:39 Source: patient Mode of arrival: wheelchair Limitations: no limitations - History of Present Illness Initial Comments: Segundo is a previously healthy 38-year-old gentleman who comes to the ER today fo r evaluation of palpitations. Patient reports that he was in his usual state of health when he went to bed last night, he reports that he woke suddenly this morning with feeling that his heart was beating very hard, was racing and he was very sweaty. Patient reports this lasted for a few minutes, the sweatiness resolved but he still felt like his heart was beating fast so he came to the ER for evaluation. Patient does report these been evaluated for cardiac workup in the past including admission to hospital and a stress test all of which were normal. Patient denies any chest pain any exertional symptoms. Patient denies any ration of drug use, or excessive caffeine intake. He does state that he was previously on Klonopin and isn't anymore, he states his primary care physician gave him a new medication for anxiety and he doesn't feel that helps he does feel is having somewhat of an anxiety attack right now. - Related Data Previous Rx's Medication Instructions Recorded ALPRAZolam [Xanax] 0.5 mg PO TID PRN #30 tab 10/05/18 Allergies Allergy/AdvReac Type Severity Reaction Status Date / Time No Known Allergies Allergy Verified 01/09/19 05:38 Review of Systems ROS Statement: Those systems with pertinent positive or pertinent negative responses have been documented in the HPI. ROS Other: All systems not noted in ROS Statement are negative. 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, History of Any Multi-Drug Resistant Organisms: None Reported Additional Past Surgical History / Comment(s): Left Orchectomy, Past Anesthesia/Blood Transfusion Reactions: No Reported Reaction Past Psychological History: Anxiety Smoking Status: Current every day smoker Past Alcohol Use History: None Reported Past Drug Use History: None Reported - Past Family History Father Family Medical History: No Reported History Additional Family Medical History / Comment(s): great grandfather CHF Mother Family Medical History: No Reported History General Exam - General Exam Comments Initial Comments: Physical Exam GENERAL: Patient is well-developed and well-nourished. Patient is nontoxic and well- hydrated and is in no distress. HENT: Normocephalic, Atraumatic. EYES: PERRL, EOMI PULMONARY: Unlabored respirations. No audible rales rhonchi or wheezing was noted. CARDIOVASCULAR: There is a regular rate and rhythm without any murmurs gallops or rubs. ABDOMEN: Soft and nontender with normal bowel sounds. SKIN: Skin is clear with no lesions or rashes and otherwise unremarkable. : Deferred NEUROLOGIC: Patient is alert and oriented x3. Moving all extremities spontaneously MUSCULOSKELETAL: Normal extremities with adequate strength and full range of motion. No lower extremity swelling or edema. No calf tenderness. PSYCHIATRIC: Normal psychiatric evaluation Limitations: no limitations Course Vital Signs 01/09/19 05:37 Temperature 97.7 F Pulse Rate 104 H Respiratory 18 Rate Blood Pressure 129/83 O2 Sat by Pulse 100 Oximetry EKG Findings - EKG Comments: EKG Findings:: EKG was obtained due to the complaint of palpitations, EKG obtained at 5:45 AM, rate is 97 rhythm is sinus with sinus arrhythmia, there is normal axis there are normal intervals, AR 160, QRS 80, QT/QTc is 360/457 there are no acute ST elevations or depressions there is no evidence of acute ischemia or infarction. Medical Decision Making - Medical Decision Making Was seen and evaluated, history is obtained from the patient and at bedside Patient presented sweaty feeling like his heart was racing he's feeling better now but wanted to be evaluated EKG is sinus rhythm with sinus arrhythmia, no other evidence of arrhythmia, ischemia or infarction Patient refused chest x-ray states he is just trying to relax in the bed doesn't feel like he needs a chest x-ray this time Labs were unremarkable, no significant electrolyte abnormalities sign d-dimer and troponin are negative Results were discussed with the patient is resting comfortably. Upon reevaluation the patient's heart beat is 60s, oxygen saturation remains 9900% on room air. Patient's comfortable with the plan for discharge home at this time. - Lab Data Result diagrams: 01/09/19 05:49 01/09/19 05:49 Lab Results 01/09/19 01/09/19 01/09/19 Range/Units 05:49 05:49 05:49 WBC 9.6 (3.8-10.6) k/uL RBC 5.04 (4.30-5.90) m/uL Hgb 15.7 (13.0-17.5) gm/dL Hct 46.5 (39.0-53.0) % MCV 92.3 (80.0-100.0) fL MCH 31.1 (25.0-35.0) pg MCHC 33.7 (31.0-37.0) g/dL RDW 13.7 (11.5-15.5) % Plt Count 222 (150-450) k/uL Neutrophils % 39 % Lymphocytes % 47 % Monocytes % 5 % Eosinophils % 5 % Basophils % 1 % Neutrophils # 3.8 (1.3-7.7) k/uL Lymphocytes # 4.5 (1.0-4.8) k/uL Monocytes # 0.5 (0-1.0) k/uL Eosinophils # 0.5 (0-0.7) k/uL Basophils # 0.1 (0-0.2) k/uL D-Dimer (<0.60) mg/L FEU Sodium 143 (137-145) mmol/L Potassium 3.6 (3.5-5.1) mmol/L Chloride 109 H (98-107) mmol/L Carbon Dioxide 25 (22-30) mmol/L Anion Gap 9 mmol/L BUN 18 (9-20) mg/dL Creatinine 1.11 (0.66-1.25) mg/dL Est GFR (CKD-EPI)AfAm >90 (>60 ml/min/1.73 sqM) Est GFR (CKD-EPI)NonAf 85 (>60 ml/min/1.73 sqM) Glucose 105 H (74-99) mg/dL Calcium 9.7 (8.4-10.2) mg/dL Magnesium 1.9 (1.6-2.3) mg/dL Total Bilirubin 0.3 (0.2-1.3) mg/dL AST 19 (17-59) U/L ALT 22 (21-72) U/L Alkaline Phosphatase 33 L (38-126) U/L Troponin I <0.012 (0.000-0.034) ng/mL Total Protein 6.9 (6.3-8.2) g/dL Albumin 4.3 (3.5-5.0) g/dL 01/09/19 Range/Units 05:49 WBC (3.8-10.6) k/uL RBC (4.30-5.90) m/uL Hgb (13.0-17.5) gm/dL Hct (39.0-53.0) % MCV (80.0-100.0) fL MCH (25.0-35.0) pg MCHC (31.0-37.0) g/dL RDW (11.5-15.5) % Plt Count (150-450) k/uL Neutrophils % % Lymphocytes % % Monocytes % % Eosinophils % % Basophils % % Neutrophils # (1.3-7.7) k/uL Lymphocytes # (1.0-4.8) k/uL Monocytes # (0-1.0) k/uL Eosinophils # (0-0.7) k/uL Basophils # (0-0.2) k/uL D-Dimer <0.17 (<0.60) mg/L FEU Sodium (137-145) mmol/L Potassium (3.5-5.1) mmol/L Chloride (98-107) mmol/L Carbon Dioxide (22-30) mmol/L Anion Gap mmol/L BUN (9-20) mg/dL Creatinine (0.66-1.25) mg/dL Est GFR (CKD-EPI)AfAm (>60 ml/min/1.73 sqM) Est GFR (CKD-EPI)NonAf (>60 ml/min/1.73 sqM) Glucose (74-99) mg/dL Calcium (8.4-10.2) mg/dL Magnesium (1.6-2.3) mg/dL Total Bilirubin (0.2-1.3) mg/dL AST (17-59) U/L ALT (21-72) U/L Alkaline Phosphatase (38-126) U/L Troponin I (0.000-0.034) ng/mL Total Protein (6.3-8.2) g/dL Albumin (3.5-5.0) g/dL Disposition Clinical Impression: Palpitations Disposition: HOME SELF-CARE Condition: Stable Instructions (If sedation given, give patient instructions): Heart Palpitations (ED) Is patient prescribed a controlled substance at d/c from ED?: No Referrals: Yaakov Madrid MD [Primary Care Provider] - 1-2 days
[2019-01-09 06:12] LABS: Basophils # (A) 0.1 k/uL (0-0.2); Basophils % (A) 1 %; Eosinophils # (A) 0.5 k/uL (0-0.7); Eosinophils % (A) 5 %; HCT 46.5 % (39.0-53.0); HGB 15.7 gm/dL (13.0-17.5); Lymphocytes # (A) 4.5 k/uL (1.0-4.8); Lymphocytes % (A) 47 %; MCH 31.1 pg (25.0-35.0); MCHC 33.7 g/dL (31.0-37.0); MCV 92.3 fL (80.0-100.0); Mean Platelet Volume 8.2; Monocytes # (A) 0.5 k/uL (0-1.0); Monocytes % (A) 5 %; Neutrophils # (A) 3.8 k/uL (1.3-7.7); Neutrophils % (A) 39 %; Platelet Count 222 k/uL (150-450); RBC 5.04 m/uL (4.30-5.90); RDW 13.7 % (11.5-15.5); WBC 9.6 k/uL (3.8-10.6)
[2019-01-09 06:23] LABS: ALT 22 U/L (21-72); AST 19 U/L (17-59); African American GFR (CKD) >90 (>60 ml/min/1.73 sqM); Albumin 4.3 g/dL (3.5-5.0); Alkaline Phosphatase 33 U/L (38-126); Anion Gap 9 mmol/L; Blood Urea Nitrogen 18 mg/dL (9-20); Calcium 9.7 mg/dL (8.4-10.2); Carbon Dioxide 25 mmol/L (22-30); Chloride 109 mmol/L (98-107); Glucose 105 mg/dL (74-99); Magnesium 1.9 mg/dL (1.6-2.3); Potassium 3.6 mmol/L (3.5-5.1); Sodium 143 mmol/L (137-145); Total Bilirubin 0.3 mg/dL (0.2-1.3); Total Protein 6.9 g/dL (6.3-8.2)
[2019-01-09 07:06] VITALS: BP 113/86; PULSE 76; TEMP 97.9
== END 2019-01-09 07:06 | disposition home or self-care (01) ==
LOC: EC 05:32
DX: R00.2 Palpitations (principal); I49.8 Other specified cardiac arrhythmias; F17.200 Nicotine dependence, unspecified, uncomplicated; Z82.49 Family history of ischemic heart disease and other diseases of the circulatory system; Z53.29 Procedure and treatment not carried out because of patient's decision for other reasons
CPT/HCPCS: 36415; 80053; 83735; 84443; 84484; 85025; 85379; 93005; 99285

== ENCOUNTER 2019-02-01 16:26 | Emergency (ER) | payer OTHER ==
[2019-02-01 16:35] VITALS: BP 135/85; PULSE 114; RESP 18; TEMP 98.2
--- NOTE | 2019-02-01 17:00 | ED ---
General Adult HPI - General Chief complaint: Anxiety Stated complaint: Dizziness Time Seen by Provider: 02/01/19 16:39 Source: patient, RN notes reviewed, old records reviewed Mode of arrival: ambulatory Limitations: no limitations - History of Present Illness Initial comments: 38-year-old male history of anxiety and panic attacks presenting with racing heart, and nausea. Consistent with previous issues with anxiety. Patient did take a Klonopin prior to arrival which she was prescribed at previous hospital admission for panic attack. He states his entire family has anxiety and panic attacks. He has no suicidal homicidal ideation. Denies any substance use. No illicit drugs. He has no chest pain. He had some palpitations, and nausea. No abdominal pain. No vomiting. - Related Data Previous Rx's Medication Instructions Recorded LORazepam [Ativan] 0.5 mg PO BID PRN 3 Days #6 tab 02/01/19 Allergies Allergy/AdvReac Type Severity Reaction Status Date / Time No Known Allergies Allergy Verified 02/01/19 16:32 Review of Systems ROS Statement: Those systems with pertinent positive or pertinent negative responses have been documented in the HPI. ROS Other: All systems not noted in ROS Statement are negative. 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, History of Any Multi-Drug Resistant Organisms: None Reported Additional Past Surgical History / Comment(s): Left Orchectomy, Past Anesthesia/Blood Transfusion Reactions: No Reported Reaction Past Psychological History: Anxiety Smoking Status: Current every day smoker Past Alcohol Use History: None Reported Past Drug Use History: None Reported - Past Family History Father Family Medical History: No Reported History Additional Family Medical History / Comment(s): great grandfather CHF Mother Family Medical History: No Reported History General Exam Limitations: no limitations General appearance: alert, in no apparent distress Head exam: Present: atraumatic, normocephalic Eye exam: Present: normal appearance, PERRL ENT exam: Present: normal exam. Absent: normal oropharynx Neck exam: Present: normal inspection. Absent: tenderness, meningismus Respiratory exam: Present: normal lung sounds bilaterally. Absent: respiratory distress, wheezes Cardiovascular Exam: Present: regular rate, normal rhythm GI/Abdominal exam: Present: soft. Absent: distended, tenderness, guarding Extremities exam: Present: normal inspection, normal capillary refill. Absent: pedal edema Back exam: Present: normal inspection, full ROM Neurological exam: Present: alert, oriented X3 Psychiatric exam: Present: anxious. Absent: homicidal ideation, suicidal ideation Skin exam: Present: warm, dry, intact. Absent: cyanosis, diaphoretic Course Vital Signs 02/01/19 16:32 Temperature 98.2 F Pulse Rate 114 H Respiratory 18 Rate Blood Pressure 135/85 O2 Sat by Pulse 98 Oximetry EKG Findings - EKG Comments: EKG Findings:: EKG: Sinus rhythm with PAC, rate of 97, MS interval 140, QRS duration 80, QTC [address] segment changes. Medical Decision Making - Medical Decision Making Records reviewed, previous ER visit with similar symptoms as today. At that time patient did have an EKG, CBC, CMP, troponin, and d-dimer. These records were reviewed, they were within normal limits. This is reassuring. EKG performed today is sinus rhythm, rate of 97. Patient taking Klonopin prior to arrival. He is given outpatient referral for further evaluation and treatment of panic attacks, anxiety. He is feeling better and can be discharged at this time. Disposition Clinical Impression: Panic attack, Palpitations Disposition: HOME SELF-CARE Condition: Good Instructions (If sedation given, give patient instructions): Generalized Anxiety Disorder (ED) Additional Instructions: Please follow up with primary care, as well as use resources given for possible counseling. Prescriptions: LORazepam [Ativan] 0.5 mg PO BID PRN 3 Days #6 tab PRN Reason: Anxiety Is patient prescribed a controlled substance at d/c from ED?: Yes Referrals: Yaakov Madrid MD [Primary Care Provider] - 1-2 days Time of Disposition: 16:53
== END 2019-02-01 17:10 | disposition home or self-care (01) ==
LOC: EC 16:26
DX: F41.0 Panic disorder [episodic paroxysmal anxiety] (principal); F17.200 Nicotine dependence, unspecified, uncomplicated; Z87.442 Personal history of urinary calculi
CPT/HCPCS: 93005; 99284

== ENCOUNTER 2019-05-24 11:51 | Emergency (ER) | payer OTHER ==
[2019-05-24] MEDS ORDERED: SODIUM CHLORIDE 0.9% 1,000 ML IV STA (12:32)
[2019-05-24] MEDS ORDERED: diphenhydrAMINE 50 MG/ML 1 ML VIAL IVP STA (12:32)
[2019-05-24] MEDS ORDERED: METOCLOPRAMIDE 5 MG/ML 2 ML VIAL IVP STA (12:32)
[2019-05-24] MEDS ORDERED: DEXAMETHASONE SOD PHOSPHATE 10 MG/ML 1 ML VIAL IV STA (12:33)
[2019-05-24 12:54] LABS: Basophils # (A) 0.1 k/uL (0-0.2); Basophils % (A) 1 %; Eosinophils # (A) 0.3 k/uL (0-0.7); Eosinophils % (A) 3 %; HCT 47.5 % (39.0-53.0); HGB 16.5 gm/dL (13.0-17.5); Lymphocytes % (A) 20 %; MCH 32.7 pg (25.0-35.0); MCHC 34.8 g/dL (31.0-37.0); MCV 94.2 fL (80.0-100.0); Mean Platelet Volume 7.1; Monocytes # (A) 0.5 k/uL (0-1.0); Monocytes % (A) 5 %; Neutrophils # (A) 7.3 k/uL (1.3-7.7); Neutrophils % (A) 71 %; Platelet Count 213 k/uL (150-450); RBC 5.04 m/uL (4.30-5.90); RDW 12.5 % (11.5-15.5); WBC 10.2 k/uL (3.8-10.6)
[2019-05-24 13:07] LABS: ALT 28 U/L (21-72); AST 23 U/L (17-59); African American GFR (CKD) >90 (>60 ml/min/1.73 sqM); Albumin 4.6 g/dL (3.5-5.0); Alkaline Phosphatase 34 U/L (38-126); Anion Gap 10 mmol/L; Blood Urea Nitrogen 17 mg/dL (9-20); Calcium 9.6 mg/dL (8.4-10.2); Carbon Dioxide 22 mmol/L (22-30); Chloride 106 mmol/L (98-107); Glucose 96 mg/dL (74-99); Potassium 4.5 mmol/L (3.5-5.1); Sodium 138 mmol/L (137-145); Total Bilirubin 0.6 mg/dL (0.2-1.3); Total Protein 7.6 g/dL (6.3-8.2)
--- NOTE | 2019-05-24 13:54 | CT ---
EXAMINATION TYPE: CT brain wo con DATE OF EXAM: 05/24/2019 COMPARISON: 10/27/2018 INDICATION: Headache DLP: 1098.4 mGycm, Automated exposure control for dose reduction was used. CONTRAST: None CT of the brain is performed utilizing 3 mm thick sections through the posterior fossa and 3 mm thick sections through the remaining calvarium. Study is performed within 24 hours of arrival to the hosp [facility]. No abnormal hyperdensity is present to suggest an acute intracranial hemorrhage. No mass lesion is evident. No acute infarcts are evident. Ventricles and sulci are appropriate for the patient age. Paranasal sinuses and mastoid air cells within the [id number] are clear. IMPRESSIONS: 1. Normal CT Brain
[2019-05-24] MEDS ORDERED: KETOROLAC 30 MG/ML 1 ML VIAL IVP STA (14:13)
--- NOTE | 2019-05-24 14:16 | ED ---
Headache HPI - General Chief Complaint: Headache Stated Complaint: Headache Time Seen by Provider: 05/24/19 12:05 Mode of arrival: ambulatory Limitations: no limitations - History of Present Illness Initial Comments: The patient is a 38-year-old male presents emergency room with reported headache that started yesterday. Stated symptoms gradual in onset. Denies any sudden onset or maximal intensity. Admits to photophobia. Denies any neck pain or stiffness. No fevers or chills. Denies any sick contacts or recent travel. No blunt head trauma. Denies any visual changes. No unilateral numbness or weakness. Admits to congestion. Has not taken any medications [id number] for her symptoms. Admits to slight nausea without vomiting. No chest pain or shortness of breath. No family history of polycystic kidney disease or aneurysms. Denies any abdominal pain. No changes in bowel or bladder habits. There are no other alleviating, precipitating or modifying factors - Related Data Home Medications Medication Instructions Recorded Confirmed clonazePAM [KlonoPIN] 0.5 mg PO BID 05/24/19 05/24/19 Previous Rx's Medication Instructions Recorded Fluticasone Nasal [place] [Flonase 2 spr EA NOSTRIL DAILY #1 bottle 05/24/19 Nasal [place]] Allergies Allergy/AdvReac Type Severity Reaction Status Date / Time No Known Allergies Allergy Verified 05/24/19 12:23 Review of Systems ROS Statement: Those systems with pertinent positive or pertinent negative responses have been documented in the HPI. ROS Other: All systems not noted in ROS Statement are negative. 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, History of Any Multi-Drug Resistant Organisms: None Reported Additional Past Surgical History / Comment(s): Left Orchectomy, Past Anesthesia/Blood Transfusion Reactions: No Reported Reaction Past Psychological History: Anxiety Smoking Status: Current every day smoker Past Alcohol Use History: None Reported Past Drug Use History: None Reported - Past Family History Father Family Medical History: No Reported History Additional Family Medical History / Comment(s): great grandfather CHF Mother Family Medical History: No Reported History General Exam Limitations: no limitations Course Vital Signs 05/24/19 05/24/19 12:04 14:26 Temperature 98.3 F 98.0 F Pulse Rate 111 H 87 Respiratory 20 16 Rate Blood Pressure 128/80 136/81 O2 Sat by Pulse 99 99 Oximetry Medical Decision Making - Medical Decision Making Upon arrival the patient was placed in room 11. A thorough history and physical exam was performed. Peripheral IV was established. The patient was given 10 mg of Reglan, 25 mg of Benadryl, and 10 mg of Decadron. Laboratory studies were performed. The patient is reporting that he normally does not headaches and he is concerned, requesting CT of the brain. Laboratory studies demonstrated without the content 0.2, hemoglobin 6.5, hematocrit 47.5 and platelets of 213. CMP is unremarkable. CT of the brain demonstrates no acute findings. I did reevaluate the patient. He is then given 30 mg of IV Toradol. I discussed diagnosis, differential and treatment options. Headache is improved at this time as well as his nausea. I did recommend LP however the patient refused. As the patient is complaining of nasal congestion I did recommend treatment with Flonase. Medication was e-prescribed. He'll be discharged at this time and and is to follow-up with primary care physician in 2-4 days. Return to the emergency room for any new or worsening symptoms. The patient agreed. He was discharged home ambulatory in stable condition - Lab Data Result diagrams: 05/24/19 12:40 05/24/19 12:40 Lab Results 05/24/19 05/24/19 Range/Units 12:40 12:40 WBC 10.2 (3.8-10.6) k/uL RBC 5.04 (4.30-5.90) m/uL Hgb 16.5 (13.0-17.5) gm/dL Hct 47.5 (39.0-53.0) % MCV 94.2 (80.0-100.0) fL MCH 32.7 (25.0-35.0) pg MCHC 34.8 (31.0-37.0) g/dL RDW 12.5 (11.5-15.5) % Plt Count 213 (150-450) k/uL Neutrophils % 71 % Lymphocytes % 20 % Monocytes % 5 % Eosinophils % 3 % Basophils % 1 % Neutrophils # 7.3 (1.3-7.7) k/uL Lymphocytes # 2.0 (1.0-4.8) k/uL Monocytes # 0.5 (0-1.0) k/uL Eosinophils # 0.3 (0-0.7) k/uL Basophils # 0.1 (0-0.2) k/uL Sodium 138 (137-145) mmol/L Potassium 4.5 (3.5-5.1) mmol/L Chloride 106 (98-107) mmol/L Carbon Dioxide 22 (22-30) mmol/L Anion Gap 10 mmol/L BUN 17 (9-20) mg/dL Creatinine 1.07 (0.66-1.25) mg/dL Est GFR (CKD-EPI)AfAm >90 (>60 ml/min/1.73 sqM) Est GFR (CKD-EPI)NonAf 89 (>60 ml/min/1.73 sqM) Glucose 96 (74-99) mg/dL Calcium 9.6 (8.4-10.2) mg/dL Total Bilirubin 0.6 (0.2-1.3) mg/dL AST 23 (17-59) U/L ALT 28 (21-72) U/L Alkaline Phosphatase 34 L (38-126) U/L Total Protein 7.6 (6.3-8.2) g/dL Albumin 4.6 (3.5-5.0) g/dL Disposition Clinical Impression: Headache Disposition: HOME SELF-CARE Condition: Stable Instructions (If sedation given, give patient instructions): Acute Headache (ED) Additional Instructions: Please follow with your primary care doctor in 2-4 days. Return to the emergency room for any new or worsening symptoms. Prescriptions: Fluticasone Nasal [place] [Flonase Nasal [place]] 2 spr EA NOSTRIL DAILY #1 bottle Is patient prescribed a controlled substance at d/c from ED?: No Referrals: Yaakov Madrid MD [Primary Care Provider] - 1-2 days Time of Disposition: 14:16
[2019-05-24 14:28] VITALS: BP 136/81; PULSE 87; RESP 16; TEMP 98
== END 2019-05-24 14:25 | disposition home or self-care (01) ==
LOC: EC 11:51
DX: R51 Headache (principal); R11.0 Nausea; R09.81 Nasal congestion; F41.9 Anxiety disorder, unspecified; F17.200 Nicotine dependence, unspecified, uncomplicated; Z79.899 Other long term (current) drug therapy
CPT/HCPCS: 36415; 80053; 85025; 70450; 99284; 96374; 96375 ×3; 96361; J1200; J1100; J2765; J1885

== ENCOUNTER → 2019-08-10 | Outpatient (CLI) | payer OTHER ==
--- NOTE | 2019-08-10 16:10 | XR ---
EXAMINATION TYPE: XR knee complete RT DATE OF EXAM: 08/10/2019 COMPARISON: None HISTORY: Pain TECHNIQUE: Three-view right knee FINDINGS: No acute fracture or dislocation is evident. Joint spaces appear preserved. No joint effusi on is evident. Follow-up exams can be performed 7-10 days from acute trauma for continued pain. IMPRESSION: 1. Normal three-view right knee
== END | disposition home or self-care (01) ==
LOC: RADXRMAIN 11:32
PROVIDERS: ATTEND Family Medicine
DX: M25.561 Pain in right knee (principal)

== ENCOUNTER 2019-09-05 06:50 | Emergency (ER) | payer OTHER ==
[2019-09-05 07:15] VITALS: TEMP 97.5
[2019-09-05] MEDS ORDERED: ONDANSETRON 4 MG/2 ML VIAL IVP STA (07:27)
[2019-09-05] MEDS ORDERED: SODIUM CHLORIDE 0.9% 1,000 ML IV STA (07:27)
[2019-09-05] MEDS ORDERED: LORazepam 2 MG/ML INJ IV STA (07:27)
[2019-09-05 07:48] LABS: Basophils # (A) 0.1 k/uL (0-0.2); Basophils % (A) 2 %; Eosinophils # (A) 0.4 k/uL (0-0.7); Eosinophils % (A) 6 %; HCT 44.6 % (39.0-53.0); HGB 14.8 gm/dL (13.0-17.5); Lymphocytes # (A) 2.8 k/uL (1.0-4.8); Lymphocytes % (A) 40 %; MCH 31.1 pg (25.0-35.0); MCHC 33.1 g/dL (31.0-37.0); MCV 93.9 fL (80.0-100.0); Mean Platelet Volume 9.1; Monocytes # (A) 0.4 k/uL (0-1.0); Monocytes % (A) 6 %; Neutrophils # (A) 3.2 k/uL (1.3-7.7); Neutrophils % (A) 45 %; Platelet Count 207 k/uL (150-450); RBC 4.75 m/uL (4.30-5.90); RDW 12.1 % (11.5-15.5)
[2019-09-05 07:55] LABS: ALT 24 U/L (4-49); AST 26 U/L (17-59); African American GFR (CKD) >90 (>60 ml/min/1.73 sqM); Albumin 3.9 g/dL (3.5-5.0); Alkaline Phosphatase 28 U/L (38-126); Anion Gap 7 mmol/L; Blood Urea Nitrogen 17 mg/dL (9-20); Calcium 9.2 mg/dL (8.4-10.2); Carbon Dioxide 24 mmol/L (22-30); Chloride 110 mmol/L (98-107); Glucose 105 mg/dL (74-99); Non-African American GFR(CKD) >90 (>60 ml/min/1.73 sqM); Potassium 3.8 mmol/L (3.5-5.1); Sodium 141 mmol/L (137-145); Total Bilirubin 0.4 mg/dL (0.2-1.3); Total Protein 6.5 g/dL (6.3-8.2)
--- NOTE | 2019-09-05 08:03 | ED ---
General Adult HPI - General Chief complaint: Anxiety Stated complaint: Cardiac Issues Time Seen by Provider: 09/05/19 07:05 Source: patient Mode of arrival: EMS Limitations: no limitations - History of Present Illness Initial comments: The patient is a 39-year-old male past medical history of anxiety who presents emergency Department with reported palpitations. He states that he awoke this morning and had sudden onset of shortness of breath with palpitations. He admits to multiple episodes in the past that are similar. He does take Klonopin daily for diagnosed anxiety. States that he had associated nausea without vomiting. Admits diaphoresis. He did not take his home medications for her symptoms but instead called EMS. He denies any associated chest pain. No fevers or chills. Denies any abdominal pain. No changes in his bowel or blad cristin habits. No recent illnesses or travel. No family history of sudden cardiac . No history of DVT or PE. Denies any headaches or visual changes. No unilateral numbness or weakness. He has had a cardiac workup to include a stress test and echo. States it happened approximately one year ago. There are no other alleviating, precipitating or modifying factors - Related Data Home Medications Medication Instructions Recorded Confirmed Ibuprofen [Motrin Ib] 600 mg PO Q6H PRN 09/05/19 09/05/19 clonazePAM [KlonoPIN] 1 mg PO BID 09/05/19 09/05/19 Allergies Allergy/AdvReac Type Severity Reaction Status Date / Time No Known Allergies Allergy Verified 09/05/19 08:03 Review of Systems ROS Statement: Those systems with pertinent positive or pertinent negative responses have been documented in the HPI. ROS Other: All systems not noted in ROS Statement are negative. 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, History of Any Multi-Drug Resistant Organisms: None Reported Additional Past Surgical History / Comment(s): Left Orchectomy, Past Anesthesia/Blood Transfusion Reactions: No Reported Reaction Past Psychological History: Anxiety Smoking Status: Current every day smoker Past Alcohol Use History: None Reported Past Drug Use History: None Reported - Past Family History Father Family Medical History: No Reported History Additional Family Medical History / Comment(s): great grandfather CHF Mother Family Medical History: No Reported History General Exam Limitations: no limitations General appearance: alert, in no apparent distress Head exam: Present: atraumatic, normocephalic, normal inspection Eye exam: Present: normal appearance, PERRL, EOMI. Absent: scleral icterus, conjunctival injection, periorbital swelling ENT exam: Present: normal exam, mucous membranes moist Neck exam: Present: normal inspection. Absent: tenderness, meningismus, lymphadenopathy Respiratory exam: Present: normal lung sounds bilaterally. Absent: respiratory distress, wheezes, rales, rhonchi, stridor Cardiovascular Exam: Present: regular rate, normal rhythm, normal heart sounds. Absent: systolic murmur, diastolic murmur, rubs, gallop, clicks GI/Abdominal exam: Present: soft, normal bowel sounds. Absent: distended, tenderness, guarding, rebound, rigid Extremities exam: Present: normal inspection, full ROM, normal capillary refill. Absent: tenderness, pedal edema, joint swelling, calf tenderness Back exam: Present: normal inspection Neurological exam: Present: alert, oriented X3, CN II-XII intact Psychiatric exam: Present: normal affect, anxious Skin exam: Present: warm, dry, intact, normal color. Absent: rash Course Vital Signs 09/05/19 09/05/19 07:03 08:40 Temperature 97.5 F L Pulse Rate 89 85 Respiratory 20 18 Rate Blood Pressure 121/88 118/78 O2 Sat by Pulse 100 98 Oximetry EKG Findings - EKG Comments: EKG Findings:: EKG demonstrates a sinus rhythm with a PVC. Ventricular rate of 89. LA interval 152. QRS 84. QTC of 445. No acute ST segment elevations or depressions concerning for ischemic changes. Medical Decision Making - Medical Decision Making Upon arrival the patient was placed into room 10. A thorough history and physical exam is performed. IV was established. The patient is given a liter bolus of normal saline. He is also provided with 1 mg of Ativan and 4 mg of Zofran. Laboratory studies were conducted which are essentially unremarkable. Discuss the diagnosis, differential and treatment options. Review the patient's history demonstrates that he had a cardiac evaluation for similar symptoms. The patient is reevaluated and feels improved. He feels comfortable discharge. The patient is to follow up with primary care doctor in 2-4 days. Return to the emergency room for any new worsening symptoms. Patient was discharged home in stable condition - Lab Data Result diagrams: 09/05/19 07:15 09/05/19 07:15 Lab Results 09/05/19 09/05/19 Range/Units 07:15 07:15 WBC 7.0 (3.8-10.6) k/uL RBC 4.75 (4.30-5.90) m/uL Hgb 14.8 (13.0-17.5) gm/dL Hct 44.6 (39.0-53.0) % MCV 93.9 (80.0-100.0) fL MCH 31.1 (25.0-35.0) pg MCHC 33.1 (31.0-37.0) g/dL RDW 12.1 (11.5-15.5) % Plt Count 207 (150-450) k/uL Neutrophils % 45 % Lymphocytes % 40 % Monocytes % 6 % Eosinophils % 6 % Basophils % 2 % Neutrophils # 3.2 (1.3-7.7) k/uL Lymphocytes # 2.8 (1.0-4.8) k/uL Monocytes # 0.4 (0-1.0) k/uL Eosinophils # 0.4 (0-0.7) k/uL Basophils # 0.1 (0-0.2) k/uL Sodium 141 (137-145) mmol/L Potassium 3.8 (3.5-5.1) mmol/L Chloride 110 H (98-107) mmol/L Carbon Dioxide 24 (22-30) mmol/L Anion Gap 7 mmol/L BUN 17 (9-20) mg/dL Creatinine 1.01 (0.66-1.25) mg/dL Est GFR (CKD-EPI)AfAm >90 (>60 ml/min/1.73 sqM) Est GFR (CKD-EPI)NonAf >90 (>60 ml/min/1.73 sqM) Glucose 105 H (74-99) mg/dL Calcium 9.2 (8.4-10.2) mg/dL Total Bilirubin 0.4 (0.2-1.3) mg/dL AST 26 (17-59) U/L ALT 24 (4-49) U/L Alkaline Phosphatase 28 L (38-126) U/L Total Protein 6.5 (6.3-8.2) g/dL Albumin 3.9 (3.5-5.0) g/dL TSH 3.190 (0.465-4.680) mIU/L Disposition Clinical Impression: Palpitations Disposition: HOME SELF-CARE Condition: Stable Instructions (If sedation given, give patient instructions): Heart Palpitations (ED) Additional Instructions: Please follow-up with your primary care doctor in 2-4 days. Return to the emergency room for any new worsening symptoms Is patient prescribed a controlled substance at d/c from ED?: No Referrals: Yaakov Madrid MD [Primary Care Provider] - 1-2 days Time of Disposition: 08:35
[2019-09-05 08:41] VITALS: BP 118/78; PULSE 85; RESP 18
== END 2019-09-05 08:40 | disposition home or self-care (01) ==
LOC: EC 06:50
DX: R00.2 Palpitations (principal); R06.02 Shortness of breath; R11.0 Nausea; R61 Generalized hyperhidrosis; F41.9 Anxiety disorder, unspecified; F17.200 Nicotine dependence, unspecified, uncomplicated; Z79.899 Other long term (current) drug therapy; Z82.49 Family history of ischemic heart disease and other diseases of the circulatory system
CPT/HCPCS: 99284; 96374; 96375; 96361; 36415; 93005; 80053; 84443; 85025; J2060; J2405

== ENCOUNTER 2021-05-05 20:18 | Emergency (ER) | payer OTHER ==
[2021-05-05 20:40] VITALS: TEMP 98.6
[2021-05-05] MEDS ORDERED: KETOROLAC 15 MG/ML 1 ML VIAL IM STA (20:54)
[2021-05-05] MEDS ORDERED: MORPHINE SULFATE 4 MG/ML SYRINGE IM STA (20:54)
[2021-05-05] MEDS ORDERED: MORPHINE SULFATE 4 MG/ML SYRINGE IVP STA (21:47)
--- NOTE | 2021-05-05 21:47 | XR ---
EXAMINATION TYPE: XR chest 1V DATE OF EXAM: 05/05/2021 COMPARISON: Chest radiograph 10/04/2018 HISTORY: Right knee injury. TECHNIQUE: Single frontal view of the chest is obtained. FINDINGS: There is no focal air space opacity, pleural effusion, or pneumothorax seen. The cardiac silhouette size is within normal limits. The osseous structures are intact. IMPRESSION: No acute process.
--- NOTE | 2021-05-05 21:50 | XR ---
EXAMINATION TYPE: XR knee limited RT DATE OF EXAM: 05/05/2021 CLINICAL HISTORY: Knee TECHNIQUE: Three views of the right knee are obtained. COMPARISON: None small femoral metaphysis.. FINDINGS: There is a mildly comminuted and displaced lateral and medial tibial plateau fracture . The re is lipohemarthrosis. IMPRESSION: There is a mildly comminuted and displaced lateral and medial tibial plateau fracture . There is lipohemarthrosis.
[2021-05-05 22:02] LABS: Basophils % (A) 0 %; Eosinophils # (A) 0.2 k/uL (0-0.7); Eosinophils % (A) 1 %; HCT 43.8 % (39.0-53.0); HGB 14.7 gm/dL (13.0-17.5); Lymphocytes # (A) 1.8 k/uL (1.0-4.8); Lymphocytes % (A) 11 %; MCH 32.7 pg (25.0-35.0); MCHC 33.5 g/dL (31.0-37.0); MCV 97.8 fL (80.0-100.0); Mean Platelet Volume 8.7; Monocytes # (A) 0.8 k/uL (0-1.0); Monocytes % (A) 5 %; Neutrophils # (A) 13.6 k/uL (1.3-7.7); Neutrophils % (A) 82 %; Platelet Count 223 k/uL (150-450); RBC 4.47 m/uL (4.30-5.90); RDW 12.5 % (11.5-15.5); WBC 16.6 k/uL (3.8-10.6)
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
[2021-05-05 22:15] LABS: INR 0.9 (<1.2); Partial Thromboplastin Time 22.4 sec (22.0-30.0); Prothrombin Time 9.6 sec (9.0-12.0)
[2021-05-05 22:41] LABS: ALT 32 U/L (4-49); AST 33 U/L (17-59); African American GFR (CKD) >90 (>60 ml/min/1.73 sqM); Albumin 4.4 g/dL (3.5-5.0); Alkaline Phosphatase 37 U/L (38-126); Anion Gap 9 mmol/L; Blood Urea Nitrogen 23 mg/dL (9-20); Calcium 9.6 mg/dL (8.4-10.2); Carbon Dioxide 22 mmol/L (22-30); Chloride 106 mmol/L (98-107); Glucose 104 mg/dL (74-99); Non-African American GFR(CKD) >90 (>60 ml/min/1.73 sqM); Potassium 4.4 mmol/L (3.5-5.1); Sodium 137 mmol/L (137-145); Total Bilirubin 0.4 mg/dL (0.2-1.3); Total Protein 7.1 g/dL (6.3-8.2)
[2021-05-05 23:32] VITALS: BP 114/84; PULSE 78; RESP 16
== END 2021-05-05 23:37 | disposition other institution (70) ==
LOC: EC 20:18
DX: S82.141A Displaced bicondylar fracture of right tibia, initial encounter for closed fracture (principal); F17.200 Nicotine dependence, unspecified, uncomplicated; W23.0XXA Caught, crushed, jammed, or pinched between moving objects, initial encounter; Y93.55 Activity, bike riding
CPT/HCPCS: 36415; 80053; 85025; 85610; 85730; 73560; 71045; 99285; 96374; 96372; J2270; J1885

== ENCOUNTER 2022-02-07 13:30 | Emergency (ER) | payer OTHER ==
[2022-02-07 13:38] VITALS: TEMP 98.2
[2022-02-07] MEDS ORDERED: SODIUM CHLORIDE 0.9% 500 ML 500 ML IV STA (14:09)
[2022-02-07] MEDS ORDERED: MORPHINE SULFATE 4 MG/ML SYRINGE IVP STA (14:13)
--- NOTE | 2022-02-07 14:16 | ED ---
General Adult HPI - General Chief complaint: Chest Pain Stated complaint: chest pain Time Seen by Provider: 02/07/22 14:01 Source: patient, RN notes reviewed, old records reviewed Mode of arrival: wheelchair Limitations: no limitations - History of Present Illness Initial comments: Patient is a 41-year-old male with past medical history remarkable for revisits for atypical chest pain and presents wrist department complaining of atypical chest pain. States is slightly worsened normal and is not radiating between his shoulder blades from the front of his chest. Describes it as sharp sensation. Started slight suddenly while at home. He was watching TV. Denies abdominal pain, nausea and vomiting. Denies shortness of breath. Denies fevers chills cough. No other acute complaints at this time. Presents for further evaluation. Has received prior cardiac workup without any findings. Symptoms started greater than 3 hours ago. - Related Data Home Medications Medication Instructions Recorded Confirmed Ibuprofen [Motrin Ib] 600 mg PO Q6H PRN 09/05/19 09/05/19 clonazePAM [KlonoPIN] 1 mg PO BID 09/05/19 09/05/19 Allergies Allergy/AdvReac Type Severity Reaction Status Date / Time No Known Allergies Allergy Verified 02/07/22 13:37 Review of Systems ROS Statement: Those systems with pertinent positive or pertinent negative responses have been documented in the HPI. Review of Systems: CONST: Denies fever EYES: Denies blurry vision ENT: Denies nasal congestion C/V: Endorses chest pain RESP: Denies shortness of breath GI: Denies abdominal pain : Denies dysuria SKIN: Denies rash. MSK: Denies joint pain. NEURO: Denies headache ROS Other: All systems not noted in ROS Statement are negative. 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, History of Any Multi-Drug Resistant Organisms: None Reported Additional Past Surgical History / Comment(s): Left Orchectomy, Past Anesthesia/Blood Transfusion Reactions: No Reported Reaction Past Psychological History: Anxiety Smoking Status: Current every day smoker Past Alcohol Use History: None Reported Past Drug Use History: None Reported - Past Family History Father Family Medical History: No Reported History Additional Family Medical History / Comment(s): great grandfather CHF Mother Family Medical History: No Reported History General Exam - General Exam Comments Initial Comments: General: Appears in no acute distress. HEAD: Normal with no signs of head trauma. EYES: PERRLA, EOMI, conjunctiva normal, no discharge. ENT: Hearing grossly intact, normal oropharynx. RESPIRATORY: Clear breath sounds bilaterally. No wheezes, rales, or rhonchi. C/V: Regular rate and rhythm. S1 and S2 auscultated, no edema, peripheral pulses 2+ and intact throughout ABD: Abd is soft, nontender, nondistended EXT: Normal range of motion, no obvious deformity SKIN: No rashes or lesions observed on exposed skin. NEURO: Alert and oriented x 4. Cranial nerves II-XII intact. No focal sensory or strength deficits. Limitations: no limitations Course Vital Signs 02/07/22 02/07/22 02/07/22 13:37 15:38 16:40 Temperature 98.2 F Pulse Rate 109 H 74 81 Respiratory 16 18 18 Rate Blood Pressure 134/74 134/81 142/81 O2 Sat by Pulse 98 96 96 Oximetry Medical Decision Making - Medical Decision Making Based on patient's presentation physical exam, I'm concerned for atypical chest pain for the patient at this time. Cannot rule out the possibility dissection due to his description of the symptoms. Recommended CT angiogram to evaluate his aorta. He was in agreement this plan. Cardiopulmonary workup also be obtained. Aspirin is held until dissection workups completed. Patient will be administered morphine as well as IV fluids. He was in agreement this plan. EKG showed no signs of acute ischemia. Chest x-ray reveals no acute cardio primary process. CT angiogram revealed no dissection of the aorta. Unremarkable exam. Laboratory studies were remarkable for an undetectable troponin. Remainder the labs are unremarkable. On reevaluation, vital signs remained within normal limits. Patient states his chest pain has resolved. I do believe it is safer to be discharged home at this time with close follow-up. He does have a follow-up appointment with his physician this week. Heart scores low. He was in agreement with this plan. I instructed the patient to follow up with their PCP in the next 1-3 days. I ex plained that the patient should return to the emergency department if they experience any worsening symptoms. Strict return precautions were discussed with the patient. The patient expressed understanding of these instructions. I answered all questions that the patient had. The patient was discharged home in good condition with their prescriptions and follow up information. - Lab Data Result diagrams: 02/07/22 14:16 02/07/22 14:16 Lab Results 02/07/22 02/07/22 02/07/22 Range/Units 14:16 14:16 14:16 WBC 7.8 (3.8-10.6) k/uL RBC 4.68 (4.30-5.90) m/uL Hgb 15.5 (13.0-17.5) gm/dL Hct 45.3 (39.0-53.0) % MCV 96.8 (80.0-100.0) fL MCH 33.1 (25.0-35.0) pg MCHC 34.2 (31.0-37.0) g/dL RDW 12.4 (11.5-15.5) % Plt Count 244 (150-450) k/uL MPV 8.4 Neutrophils % 55 % Lymphocytes % 32 % Monocytes % 6 % Eosinophils % 4 % Basophils % 1 % Neutrophils # 4.3 (1.3-7.7) k/uL Lymphocytes # 2.5 (1.0-4.8) k/uL Monocytes # 0.5 (0-1.0) k/uL Eosinophils # 0.3 (0-0.7) k/uL Basophils # 0.1 (0-0.2) k/uL PT 10.3 (9.0-12.0) sec INR 0.9 (<1.2) APTT 25.2 (22.0-30.0) sec Sodium 140 (137-145) mmol/L Potassium 4.2 (3.5-5.1) mmol/L Chloride 105 (98-107) mmol/L Carbon Dioxide 27 (22-30) mmol/L Anion Gap 8 mmol/L BUN 20 (9-20) mg/dL Creatinine 1.10 (0.66-1.25) mg/dL Est GFR (CKD-EPI)AfAm >90 (>60 ml/min/1.73 sqM) Est GFR (CKD-EPI)NonAf 84 (>60 ml/min/1.73 sqM) Glucose 100 H (74-99) mg/dL Calcium 9.3 (8.4-10.2) mg/dL Magnesium 1.9 (1.6-2.3) mg/dL Total Bilirubin 0.4 (0.2-1.3) mg/dL AST 24 (17-59) U/L ALT 20 (4-49) U/L Alkaline Phosphatase 35 L (38-126) U/L Troponin I (0.000-0.034) ng/mL Total Protein 7.3 (6.3-8.2) g/dL Albumin 4.5 (3.5-5.0) g/dL 02/07/22 Range/Units 14:16 WBC (3.8-10.6) k/uL RBC (4.30-5.90) m/uL Hgb (13.0-17.5) gm/dL Hct (39.0-53.0) % MCV (80.0-100.0) fL MCH (25.0-35.0) pg MCHC (31.0-37.0) g/dL RDW (11.5-15.5) % Plt Count (150-450) k/uL MPV Neutrophils % % Lymphocytes % % Monocytes % % Eosinophils % % Basophils % % Neutrophils # (1.3-7.7) k/uL Lymphocytes # (1.0-4.8) k/uL Monocytes # (0-1.0) k/uL Eosinophils # (0-0.7) k/uL Basophils # (0-0.2) k/uL PT (9.0-12.0) sec INR (<1.2) APTT (22.0-30.0) sec Sodium (137-145) mmol/L Potassium (3.5-5.1) mmol/L Chloride (98-107) mmol/L Carbon Dioxide (22-30) mmol/L Anion Gap mmol/L BUN (9-20) mg/dL Creatinine (0.66-1.25) mg/dL Est GFR (CKD-EPI)AfAm (>60 ml/min/1.73 sqM) Est GFR (CKD-EPI)NonAf (>60 ml/min/1.73 sqM) Glucose (74-99) mg/dL Calcium (8.4-10.2) mg/dL Magnesium (1.6-2.3) mg/dL Total Bilirubin (0.2-1.3) mg/dL AST (17-59) U/L ALT (4-49) U/L Alkaline Phosphatase (38-126) U/L Troponin I <0.012 (0.000-0.034) ng/mL Total Protein (6.3-8.2) g/dL Albumin (3.5-5.0) g/dL - EKG Data -: EKG Interpreted by Me EKG Comments: 12-lead Electrocardiogram Interpretation Note EKG was reviewed and interpreted by myself. 12-lead ECG performed at 1342 is interpreted by me as revealing normal sinus rhythm at a rate of 97 beats per minute. Parks is normal. [place] interval is 137 ms, QRS duration is 80 ms, QTc is 373 ms.. There were no ST or T wave abnormalities to suggest myocardial ischemia or injury. R wave progression across the precordium was satisfactory. Occasional PAC present. By my interpretation this EKG is non-diagnostic for acute ischemia. Disposition Clinical Impression: Atypical chest pain Disposition: HOME SELF-CARE Condition: Good Instructions (If sedation given, give patient instructions): Chest Pain (ED) Is patient prescribed a controlled substance at d/c from ED?: No Referrals: Yaakov Madrid MD [Primary Care Provider] - 1-2 days Time of Disposition: 16:00
[2022-02-07 14:33] LABS: Basophils # (A) 0.1 k/uL (0-0.2); Basophils % (A) 1 %; Eosinophils # (A) 0.3 k/uL (0-0.7); Eosinophils % (A) 4 %; HCT 45.3 % (39.0-53.0); HGB 15.5 gm/dL (13.0-17.5); Lymphocytes # (A) 2.5 k/uL (1.0-4.8); Lymphocytes % (A) 32 %; MCH 33.1 pg (25.0-35.0); MCHC 34.2 g/dL (31.0-37.0); MCV 96.8 fL (80.0-100.0); Mean Platelet Volume 8.4; Monocytes # (A) 0.5 k/uL (0-1.0); Monocytes % (A) 6 %; Neutrophils # (A) 4.3 k/uL (1.3-7.7); Neutrophils % (A) 55 %; Platelet Count 244 k/uL (150-450); RBC 4.68 m/uL (4.30-5.90); RDW 12.4 % (11.5-15.5); WBC 7.8 k/uL (3.8-10.6)
[2022-02-07 14:44] LABS: ALT 20 U/L (4-49); AST 24 U/L (17-59); African American GFR (CKD) >90 (>60 ml/min/1.73 sqM); Albumin 4.5 g/dL (3.5-5.0); Alkaline Phosphatase 35 U/L (38-126); Anion Gap 8 mmol/L; Blood Urea Nitrogen 20 mg/dL (9-20); Calcium 9.3 mg/dL (8.4-10.2); Carbon Dioxide 27 mmol/L (22-30); Chloride 105 mmol/L (98-107); Glucose 100 mg/dL (74-99); Magnesium 1.9 mg/dL (1.6-2.3); Non-African American GFR(CKD) 84 (>60 ml/min/1.73 sqM); Potassium 4.2 mmol/L (3.5-5.1); Sodium 140 mmol/L (137-145); Total Bilirubin 0.4 mg/dL (0.2-1.3); Total Protein 7.3 g/dL (6.3-8.2)
[2022-02-07 14:53] LABS: INR 0.9 (<1.2); Partial Thromboplastin Time 25.2 sec (22.0-30.0); Prothrombin Time 10.3 sec (9.0-12.0)
--- NOTE | 2022-02-07 14:54 | XR ---
EXAMINATION TYPE: XR chest 2V DATE OF EXAM: 02/07/2022 COMPARISON: 05/05/2021 HISTORY: Chest pain TECHNIQUE: 2 views FINDINGS: Heart and mediastinum are normal. Lungs are clear. Diaphragm is normal. Bony thorax is inta ct. IMPRESSION: Normal chest. No change
--- NOTE | 2022-02-07 15:46 | CT ---
EXAMINATION TYPE: CT angio thor/abd pel aorta DATE OF EXAM: 02/07/2022 COMPARISON: None HISTORY: Chest pain radiating into back. CT DLP: 1379 mGycm Automated exposure control for dose reduction was used. CONTRAST: Performed without and with IV Contrast, patient injected with 100ml mL of Isovue 370. Images obtained from the thoracic inlet to the floor the pelvis with and without the IV contrast. The re are Three-D postprocessed images. The mediastinum is normal. There are no hilar masses. Thoracic aorta is intact. No aneurysm or dissec tion. There is normal contrast opacification of the pulmonary arteries. No filling defect. The lungs are clear of consolidation. No pleural effusion or pneumothorax. Liver spleen and stomach pancreas and gallbladder appear normal. The bile ducts are not dilated. There is no adrenal mass. Kidneys show satisfactory contrast opacification. There is no hydronephrosi s. Appendix is medial and appears normal. Bladder distends smoothly. No inguinal hernia. No free flui d in the pelvis. No pelvic mass. There is no mesenteric edema. No ascites or free air. No sign of a bowel obstruction. There is normal contrast opacification of the abdominal aorta. There is arterial flow in the celiac a rtery and superior mesenteric artery. There is arterial flow in the renal and iliac and femoral arter ies. No evidence of arterial aneurysm or dissection. No evidence of hemodynamic stenosis. There is so me atheromatous plaque formation in the lower abdominal aorta and the iliac arteries. Luminal narrowi ng less than 15%. The thoracic and lumbar vertebra appear intact. No compression fracture. Bony pelvis is intact. Hip j oints are intact. There is 2 mm calculus interpolar left kidney. IMPRESSION: Negative exam. No evidence of arterial aneurysm or dissection. No evidence of hemodynamic stenosis. No evidence of pulmonary embolism.
[2022-02-07 16:40] VITALS: RESP 18
[2022-02-07 16:41] VITALS: BP 142/81; PULSE 81
== END 2022-02-07 16:41 | disposition home or self-care (01) ==
LOC: EC 13:30
DX: R07.89 Other chest pain (principal); F17.200 Nicotine dependence, unspecified, uncomplicated
CPT/HCPCS: 36415; 93005; 80053; 83735; 84484; 85025; 85610; 85730; 71046; 71275; 74174; 99285; 96374; J2270; Q9967

== ENCOUNTER 2022-06-19 19:38 | Emergency (ER) | payer OTHER ==
[2022-06-19 19:44] VITALS: BP 153/89; RESP 18; TEMP 97.7
[2022-06-19] MEDS ORDERED: SODIUM CHLORIDE 0.9% 1,000 ML IV STA (20:58)
[2022-06-19 21:26] LABS: Basophils % (A) 0 %; Eosinophils # (A) 0.3 k/uL (0-0.7); Eosinophils % (A) 3 %; HCT 40.8 % (39.0-53.0); HGB 13.9 gm/dL (13.0-17.5); Lymphocytes % (A) 21 %; MCH 32.5 pg (25.0-35.0); MCHC 34.1 g/dL (31.0-37.0); MCV 95.3 fL (80.0-100.0); Mean Platelet Volume 8.9; Monocytes # (A) 0.6 k/uL (0-1.0); Monocytes % (A) 6 %; Neutrophils # (A) 6.8 k/uL (1.3-7.7); Neutrophils % (A) 69 %; Platelet Count 222 k/uL (150-450); RBC 4.28 m/uL (4.30-5.90); RDW 12.4 % (11.5-15.5); WBC 9.9 k/uL (3.8-10.6)
[2022-06-19] MEDS: KETOROLAC 15 MG/ML 1 ML VIAL IVP STA ×2 (21:27→21:29)
[2022-06-19 21:39] VITALS: PULSE 70
[2022-06-19 21:39] LABS: ALT 19 U/L (4-49); AST 25 U/L (17-59); African American GFR (CKD) >90 (>60 ml/min/1.73 sqM); Albumin 4.4 g/dL (3.5-5.0); Alkaline Phosphatase 30 U/L (38-126); Anion Gap 5 mmol/L; Blood Urea Nitrogen 26 mg/dL (9-20); Calcium 9.9 mg/dL (8.4-10.2); Carbon Dioxide 26 mmol/L (22-30); Chloride 109 mmol/L (98-107); Glucose 99 mg/dL (74-99); Non-African American GFR(CKD) >90 (>60 ml/min/1.73 sqM); Potassium 4.6 mmol/L (3.5-5.1); Sodium 140 mmol/L (137-145); Total Bilirubin 0.3 mg/dL (0.2-1.3); Total Protein 6.9 g/dL (6.3-8.2)
[2022-06-19 21:45] LABS: INR 0.8 (<1.2); Prothrombin Time 9.5 sec (9.0-12.0)
--- NOTE | 2022-06-19 22:03 | XR ---
EXAMINATION TYPE: XR chest 2V DATE OF EXAM: 06/19/2022 COMPARISON: 02/07/2022 HISTORY: Chest pain TECHNIQUE: FINDINGS: Heart is normal. Lungs are clear. Diaphragm is normal. Bony thorax is intact. IMPRESSION: Normal chest. No change
--- NOTE | 2022-06-19 22:18 | ED ---
Chest Pain HPI - General Chief Complaint: Chest Pain Stated Complaint: Chest pain Time Seen by Provider: 06/19/22 20:56 Source: patient Mode of arrival: ambulatory Limitations: no limitations - History of Present Illness Initial Comments: Patient is a 41-year-old male who presents to the emergency department with a chief complaint of chest pain. Patient states symptoms started this afternoon. The pain is consistent, sharp, non-radiational, nonexertional. He denies lightheadedness, dizziness, shortness of breath, abdominal pain, nausea, vomiting. Patient has been evaluated several times in the emergency department for chest pain symptoms. Patient does report that since having COVID-19 he has been more nervous and anxious about his health. Does admit to feeling anxious currently. He also admits to a pulled muscle in his left chest. He denies alcohol and drug use. Patient states he recently had a normal echocardiogram while in the hospital however could not have a stress test due to eating prior to the test. Patient states he has a stress test scheduled for next week. - Related Data Home Medications Medication Instructions Recorded Confirmed Ibuprofen [Motrin Ib] 600 mg PO Q6H PRN 09/05/19 09/05/19 clonazePAM [KlonoPIN] 1 mg PO BID 09/05/19 09/05/19 Allergies Allergy/AdvReac Type Severity Reaction Status Date / Time No Known Allergies Allergy Verified 06/19/22 19:44 Review of Systems ROS Statement: Those systems with pertinent positive or pertinent negative responses have been documented in the HPI. ROS Other: All systems not noted in ROS Statement are negative. EKG Findings - EKG Comments: EKG Findings:: EKG taken at 19:49. Sinus rhythm with occasional supraventricular premature complexes, no ST segment T-wave changes, normal axis. Ventricular rate 92. pr interval 146. QRS duration 86. 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, History of Any Multi-Drug Resistant Organisms: None Reported Additional Past Surgical History / Comment(s): Left Orchectomy, Past Anesthesia/Blood Transfusion Reactions: No Reported Reaction Past Psychological History: Anxiety Smoking Status: Current every day smoker Past Alcohol Use History: None Reported Past Drug Use History: None Reported - Past Family History Father Family Medical History: No Reported History Additional Family Medical History / Comment(s): great grandfather CHF Mother Family Medical History: No Reported History General Exam Limitations: no limitations General appearance: alert, in no apparent distress Head exam: Present: atraumatic, normocephalic, normal inspection Neck exam: Present: normal inspection. Absent: tenderness, meningismus, lymphadenopathy Respiratory exam: Present: normal lung sounds bilaterally, chest wall tenderness (left). Absent: respiratory distress, wheezes, rales, rhonchi, stridor, decreased breath sounds Cardiovascular Exam: Present: regular rate, normal rhythm, normal heart sounds. Absent: systolic murmur, diastolic murmur, rubs, gallop, clicks, JVD, S3, S4 GI/Abdominal exam: Present: soft, normal bowel sounds. Absent: distended, tenderness, guarding, rebound, rigid Neurological exam: Present: alert, oriented X3, CN II-XII intact Psychiatric exam: Present: normal affect, normal mood Skin exam: Present: warm, dry, intact, normal color. Absent: rash Course Vital Signs 06/19/22 06/19/22 19:42 21:32 Temperature 97.7 F Pulse Rate 100 70 Respiratory 18 Rate Blood Pressure 153/89 O2 Sat by Pulse 100 Oximetry Chest Pain MDM - MDM This is a 41-year-old male presenting with chest pain. Patient well-appearing and in no apparent distress. Vitals stable. EKG obtained in the abdomen which shows sinus rhythm, ST segment T-wave abnormalities.Chest x-ray obtained interpreted as normal acute cardiopulmonary process. Laboratory studies obtained relatively unremarkable. Troponin is within normal limits. Patient given Toradol. On reevaluation patient states his chest pain has subsided. With left chest wall tenderness and recent injury I suspect pain is related to musculoskeletal origin. Patient will be discharged with return parameters. He will follow up with [facility] this planned. Dr. Beth is my attending. Disposition Clinical Impression: Chest pain Disposition: HOME SELF-CARE Condition: Good Instructions (If sedation given, give patient instructions): Chest Pain (ED) Additional Instructions: Please follow up with primary care provider in one to 2 days. Return to the emergency department if he strains new, concerning, or worsening symptoms. Is patient prescribed a controlled substance at d/c from ED?: No Referrals: Yaakov Madrid MD [Primary Care Provider] - 1-2 days Time of Disposition: 22:17
== END 2022-06-19 22:40 | disposition home or self-care (01) ==
LOC: EC 19:38
DX: R07.9 Chest pain, unspecified (principal); F41.9 Anxiety disorder, unspecified; F17.200 Nicotine dependence, unspecified, uncomplicated
CPT/HCPCS: 36415; 71046; 80053; 83735; 84484; 85025; 85610; 85730; 93005; 96360; 99285

== ENCOUNTER 2023-08-02 14:24 | Emergency (ER) | payer OTHER ==
[2023-08-02] MEDS ORDERED: KETOROLAC 15 MG/ML 1 ML VIAL IVP STA (14:44)
[2023-08-02] MEDS ORDERED: ONDANSETRON 4 MG/2 ML VIAL IVP STA (14:44)
--- NOTE | 2023-08-02 14:44 | ED ---
General Adult HPI - General Source: patient, RN notes reviewed Mode of arrival: ambulatory Limitations: no limitations <Nannette Colbert - Last Filed: 08/02/23 14:43> <Leandro Nelson - Last Filed: 08/02/23 20:02> - General Chief complaint: Urogenital Stated complaint: Abd/Back Pain Time Seen by Provider: 08/02/23 14:44 - History of Present Illness Initial comments: 42-year-old male presents to the emergency department with a chief complaint of left-sided flank pain that radiates into the left groin. Patient for history of kidney stones in the past. Denies any known fevers. (Nannette Pleitez) Dictation was produced using [employer] dictation software. please excuse any grammatical, word or spelling errors. Chief Complaint: 42-year-old male presents to the emergency department for left- sided flank pain History of Present Illness: 42-year-old male past medical history of kidney stone. Patient states that for the last several hours he has had flank pain every down to the right of the penis. States that his history of kidney stones. Patient was asymptomatic yesterday. He did complain of blood in the urine. The ROS documented in this emergency department record has been reviewed and confirmed by me. Those systems with pertinent positive or negative responses have been documented in the HPI. All other systems are other negative and/or noncontributory. (Leandro Nelson) - Related Data Home Medications Medication Instructions Recorded Confirmed Ibuprofen [Motrin Ib] 600 mg PO Q6H PRN 09/05/19 09/05/19 clonazePAM [KlonoPIN] 1 mg PO BID 09/05/19 09/05/19 Previous Rx's Medication Instructions Recorded HYDROcodone/APAP 5-325MG [[place] 1 tab PO Q6HR PRN 3 Days #12 tab 08/02/23 5-325] Ketorolac [Toradol] 10 mg PO Q6HR PRN 3 Days #12 tab 08/02/23 Allergies Allergy/AdvReac Type Severity Reaction Status Date / Time No Known Allergies Allergy Verified 08/02/23 14:41 Review of Systems ROS Other: All systems not noted in ROS Statement are negative. <Nannette Colbert - Last Filed: 08/02/23 14:43> ROS Other: All systems not noted in ROS Statement are negative. <Leandro Nelson - Last Filed: 08/02/23 20:02> ROS Statement: Those systems with pertinent positive or pertinent negative responses have been documented in the HPI. 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, History of Any Multi-Drug Resistant Organisms: None Reported Past Surgical History: Orthopedic Surgery Additional Past Surgical History / Comment(s): Left Orchectomy, Past Anesthesia/Blood Transfusion Reactions: No Reported Reaction Past Psychological History: Anxiety Smoking Status: Current every day smoker Past Alcohol Use History: None Reported Past Drug Use History: None Reported - Past Family History Father Family Medical History: No Reported History Additional Family Medical History / Comment(s): great grandfather CHF Mother Family Medical History: No Reported History <Nannette Colbert - Last Filed: 08/02/23 14:43> General Exam Limitations: no limitations <Nannette Colbert - Last Filed: 08/02/23 14:43> <Leandro Nelson - Last Filed: 08/02/23 20:02> - General Exam Comments Initial Comments: PHYSICAL EXAM: General Impression: Alert and oriented x3, not in acute distress HEENT: Normocephalic atraumatic, extra-ocular movements intact, pupils equal and reactive to light bilaterally, mucous membranes moist. Cardiovascular: Heart regular rate and rhythm Chest: Able to complete full sentences, no retractions, no tachypnea Abdomen: abdomen soft, non-tender, non-distended, no organomegaly Musculoskeletal: Pulses present and equal in all extremities, no peripheral edema Motor: no focal deficits noted Neurological: CN II-XII grossly intact, no focal motor or sensory deficits noted Skin: Intact with no visualized rashes Psych: Normal affect and mood (Leandro Nelson) Course Vital Signs 08/02/23 08/02/23 14:38 19:30 Temperature 97.9 F 98.1 F Pulse Rate 105 H 89 Respiratory 18 18 Rate Blood Pressure 129/93 126/93 O2 Sat by Pulse 98 99 Oximetry Medical Decision Making - Lab Data Result diagrams: 08/02/23 15:10 08/02/23 15:10 <Leandro Nelson - Last Filed: 08/02/23 20:02> - Medical Decision Making Was pt. sent in by a medical professional or institution (ROSANA Hardy, HYDRANT SETTER, urgent care, hospital, or residential...) When possible be specific @ -No Did you speak to anyone other than the patient for history (EMS, parent, family, police, friend...)? What history was obtained from this source @ -No Did you review nursing and triage notes (agree or disagree)? Why? @ -I reviewed and agree with nursing and triage notes Were old charts reviewed (outside hosp., previous admission, EMS record, old EKG, old radiological studies, urgent care reports/EKG's, residential records)? Report findings @ -No old charts were reviewed Differential Diagnosis (chest pain, altered mental status, abdominal pain women, abdominal pain men, vaginal bleeding, musculoskeletal, weakness, fever, dyspnea, syncope, headache, dizziness, GI bleed, back pain, seizure, CVA, palpatations, mental health)? @ -Differential Abdominal Pain Men: Appendicitis, cholecystitis, diverticulosis, ischemic bowel, pancreatitis, hepatitis, UTI, gastroenteritis, AAA, incarcerated hernia, bowel obstruction, constipation, inflammatory bowel, hepatitis, peptic ulcer disease, splenic infarction, perforated viscus, testicular torsion, this is not meant to be an all-inclusive list EKG interpreted by me (3pts min.). @ -None done X-rays interpreted by me (1pt min.). @ -None done CT interpreted by me (1pt min.). @ -Computed tomography scan of the abdomen and pelvis without contrast shows I.4 millimeter calculus in the urinary system U/S interpreted by me (1pt. min.). @ -None done What testing was considered but not performed or refused? (CT, X-rays, U/S, labs)? Why? @ -None What meds were considered but not given or refused? Why? @ -None Did you discuss the management of the patient with other professionals (professionals i.e. ROSANA Hardy, HYDRANT SETTER, lab, RT, psych nurse, long term care social worker, coating mixer tender, teacher, equal opportunity officer, casework manager)? Give summary @ -No Was smoking cessation discussed for >3mins.? @ -No Was critical care preformed (if so, how long)? @ -No Were there social determinants of health that impacted care today? How? (Homelessness, low income, unemployed, alcoholism, drug addiction, transportation, low edu. Level, literacy, decrease access to med. care, correction, rehab)? @ -No Was there de-escalation of care discussed even if they declined (Discuss DNR or withdrawal of care, Hospice)? DNR status @ -No What co-morbidities impacted this encounter? (DM, HTN, Smoking, COPD, CAD, Cancer, CVA, ARF, Chemo, Hep., AIDS, mental health diagnosis, sleep apnea, morbid obesity)? @ -None Was patient admitted / discharged? Hospital course, mention meds given and route, prescriptions, significant lab abnormalities, going to OR and other pertinent info. @ -42-year-old male presents to the emergency Department with left-sided flank pain. History of present illness suggestive of nephrolithiasis that is obstructed. Vital signs are stable. Patient well-appearing in minimal distre ss. Laboratory evaluation is unremarkable. There is 160 red blood cells in the urine. The scan shows nephrolithiasis. Patient given IV fluids and analgesics. Agreeable with discharge with outpatient follow-up to urology. Undiagnosed new problem with uncertain prognosis? @ -No Drug Therapy requiring intensive monitoring for toxicity (Heparin, Nitro, Insulin, Cardizem)? @ -No Were any procedures done? @ -No Diagnosis/symptom? Acute, or Chronic, or Acute on Chronic? Uncomplicated (without systemic symptoms) or Complicated (systemic symptoms)? @ -Obstructing Nephrolithiasis Side effects of treatment? @ -No Exacerbation, Progression, or Severe Exacerbation? @ -No Poses a threat to life or bodily function? How? (Chest pain, [place], [place], pneumonia, PE, COPD, DKA, ARF, appy, cholecystitis, CVA, Diverticulitis, Homicidal, Suicidal, threat to staff... and all critical care pts) @ -yes (Leandro Nelson) - Lab Data Lab Results 08/02/23 08/02/23 08/02/23 Range/Units 12:22 15:10 15:10 WBC 11.3 H (3.8-10.6) k/uL RBC 5.08 (4.30-5.90) m/uL Hgb 16.4 (13.0-17.5) gm/dL Hct 48.6 (39.0-53.0) % MCV 95.6 (80.0-100.0) fL MCH 32.2 (25.0-35.0) pg MCHC 33.7 (31.0-37.0) g/dL RDW 12.3 (11.5-15.5) % Plt Count 226 (150-450) k/uL MPV 8.9 Neutrophils % 62 % Lymphocytes % 27 % Monocytes % 6 % Eosinophils % 3 % Basophils % 1 % Neutrophils # 7.0 (1.3-7.7) k/uL Lymphocytes # 3.1 (1.0-4.8) k/uL Monocytes # 0.7 (0-1.0) k/uL Eosinophils # 0.4 (0-0.7) k/uL Basophils # 0.1 (0-0.2) k/uL Sodium 140 (137-145) mmol/L Potassium 4.7 (3.5-5.1) mmol/L Chloride 105 (98-107) mmol/L Carbon Dioxide 23 (22-30) mmol/L Anion Gap 12 mmol/L BUN 19 (9-20) mg/dL Creatinine 1.11 (0.66-1.25) mg/dL Est GFR (CKD-EPI)AfAm >90 (>60 ml/min/1.73 sqM) Est GFR (CKD-EPI)NonAf 82 (>60 ml/min/1.73 sqM) Glucose 94 (74-99) mg/dL Calcium 9.7 (8.4-10.2) mg/dL Total Bilirubin 0.5 (0.2-1.3) mg/dL AST 27 (17-59) U/L ALT 31 (4-49) U/L Alkaline Phosphatase 40 (38-126) U/L Total Protein 7.5 (6.3-8.2) g/dL Albumin 4.5 (3.5-5.0) g/dL Urine Color Light Yellow Urine Appearance Cloudy (Clear) Urine pH 5.5 (5.0-8.0) Ur Specific [place] 1.012 (1.001-1.035) Urine Protein Trace H (Negative) Urine Glucose (UA) Negative (Negative) Urine Ketones Negative (Negative) Urine Blood Large H (Negative) Urine Nitrite Negative (Negative) Urine Bilirubin Negative (Negative) Urine Urobilinogen <2.0 (<2.0) mg/dL Ur Leukocyte Esterase Small H (Negative) Urine RBC 168 H (0-5) /hpf Urine WBC 5 (0-5) /hpf Ur Squamous Epith Cells <1 (0-4) /hpf Urine Bacteria Rare H (None) /hpf Urine Mucus Rare H (None) /hpf Disposition <Nannette Colbert - Last Filed: 08/02/23 14:43> Is patient prescribed a controlled substance at d/c from ED?: Yes If prescribed controlled substance>3 days was MAPS reviewed?: Prescribed <3 Days Time of Disposition: 20:02 <Leandro Nelson - Last Filed: 08/02/23 20:02> Clinical Impression: Kidney stone Disposition: HOME SELF-CARE Condition: Fair Instructions (If sedation given, give patient instructions): Kidney Stones (ED) Prescriptions: HYDROcodone/APAP 5-325MG [[place] 5-325] 1 tab PO Q6HR PRN 3 Days #12 tab PRN Reason: Severe Pain Ketorolac [Toradol] 10 mg PO Q6HR PRN 3 Days #12 tab PRN Reason: Pain Referrals: Josue Ambrosio MD [STAFF PHYSICIAN] - 1-2 days
[2023-08-02 14:48] VITALS: RESP 18
[2023-08-02 15:56] LABS: Basophils # (A) 0.1 k/uL (0-0.2); Basophils % (A) 1 %; Eosinophils # (A) 0.4 k/uL (0-0.7); Eosinophils % (A) 3 %; HCT 48.6 % (39.0-53.0); HGB 16.4 gm/dL (13.0-17.5); Lymphocytes # (A) 3.1 k/uL (1.0-4.8); Lymphocytes % (A) 27 %; MCH 32.2 pg (25.0-35.0); MCHC 33.7 g/dL (31.0-37.0); MCV 95.6 fL (80.0-100.0); Mean Platelet Volume 8.9; Monocytes # (A) 0.7 k/uL (0-1.0); Monocytes % (A) 6 %; Neutrophils % (A) 62 %; Platelet Count 226 k/uL (150-450); RBC 5.08 m/uL (4.30-5.90); RDW 12.3 % (11.5-15.5); WBC 11.3 k/uL (3.8-10.6)
[2023-08-02 16:03] LABS: Appearance,Urine Cloudy (Clear); Bacteria,Urine Rare /hpf; Bilirubin,Urine Negative (Negative); Blood,Urine Large (Negative); Color,Urine Light Yellow; Glucose,Urine (UA) Negative (Negative); Ketones,Urine Negative (Negative); Leukocyte Esterase,Urine Small (Negative); Mucus,Urine Rare /hpf; Nitrite,Urine Negative (Negative); PH, Urine 5.5 (5.0-8.0); Protein,Urine Trace (Negative); RBC,Urine 168 /hpf (0-5); Specific Gravity,Urine 1.012 (1.001-1.035); Squamous Epithelial Cell,Urine <1 /hpf (0-4); Urobilinogen,Urine <2.0 mg/dL (<2.0); WBC,Urine 5 /hpf (0-5)
[2023-08-02 16:15] LABS: ALT 31 U/L (4-49); AST 27 U/L (17-59); African American GFR (CKD) >90 (>60 ml/min/1.73 sqM); Albumin 4.5 g/dL (3.5-5.0); Alkaline Phosphatase 40 U/L (38-126); Anion Gap 12 mmol/L; Blood Urea Nitrogen 19 mg/dL (9-20); Calcium 9.7 mg/dL (8.4-10.2); Carbon Dioxide 23 mmol/L (22-30); Chloride 105 mmol/L (98-107); Glucose 94 mg/dL (74-99); Non-African American GFR(CKD) 82 (>60 ml/min/1.73 sqM); Potassium 4.7 mmol/L (3.5-5.1); Sodium 140 mmol/L (137-145); Total Bilirubin 0.5 mg/dL (0.2-1.3); Total Protein 7.5 g/dL (6.3-8.2)
[2023-08-02] MEDS ORDERED: SODIUM CHLORIDE 0.9% 1,000 ML IV STA (18:54)
--- NOTE | 2023-08-02 19:06 | CT ---
EXAMINATION TYPE: CT abdomen pelvis wo con CT DLP: 661.7 mGycm, Automated exposure control for dose reduction was used. DATE OF EXAM: 08/02/2023 4:50 PM COMPARISON: CLINICAL INDICATION:Male, 42 years old with history of left flank pain; bilateral flank pain TECHNIQUE: Axial CT of the abdomen and pelvis. Sagittal and coronal reformats were created on a [employer] workstation. Contrast used: mL of , (none if empty) Oral contrast used: without Oral Contrast (none if empty) FINDINGS: Exam is limited without contrast. LOWER CHEST: Unremarkable ABDOMEN LIVER: Unremarkable GALLBLADDER AND BILE DUCTS: Unremarkable gallbladder. No biliary ductal dilatation. PANCREAS: No acute abnormality. The tail appears somewhat truncated. SPLEEN: Unremarkable. ADRENAL GLANDS: Unremarkable. KIDNEYS AND URETERS, BLADDER: Unremarkable right kidney without evidence of calculus or hydronephrosi s. Left kidney contains a 3 mm calculus in a lower pole calyx. There is moderate hydronephrosis and a 9.4 mm calculus within the ureteropelvic junction. The more distal ureter appears mildly dilated as well, and there appear to be adjacent 2-3 mm calculi along the left posterior lateral bladder wall, w hich could be wedged at the ureterovesical junction and/or recently passed. PELVIS BLADDER: As above. REPRODUCTIVE: Unremarkable prostate. ABDOMEN & PELVIS STOMACH AND BOWEL: Stomach and small bowel are nondistended, no evidence of obstruction. Appendix i s within normal limits. Mild to moderate stool throughout the colon. Multiple colonic diverticula wit hout clear evidence of diverticulitis. PERITONEUM/RETROPERITONEUM: No evidence of pneumoperitoneum or free fluid. VASCULATURE: Mild atherosclerotic calcifications are present throughout the abdominal aorta and its b ranches. No evidence of aortic aneurysm. LYMPH NODES: No gross evidence for lymphadenopathy. SOFT TISSUE/ABDOMINAL WALL: Small fat-containing left inguinal hernia. MUSCULOSKELETAL: No acute osseous abnormalities. Mild degenerative changes of the visualized spine. IMPRESSION: 1. Moderate left-sided hydronephrosis, with a 9.4 mm calculus within the ureteropelvic junction. 2. The more distal left ureter appears mildly dilated as well, and there appear to be adjacent 2-3 m m calculi along the left posterior lateral bladder wall, which could be wedged at the ureterovesical junction and/or recently passed. 3. Additional nonobstructing left renal calculus in a lower pole calyx.
[2023-08-02 19:36] VITALS: BP 126/93; PULSE 89; TEMP 98.1
--- NOTE | 2023-08-02 20:23 | ED ---
Medical Decision Making - Lab Data Result diagrams: 08/02/23 15:10 08/02/23 15:10 Lab Results 08/02/23 08/02/23 08/02/23 Range/Units 12:22 15:10 15:10 WBC 11.3 H (3.8-10.6) k/uL RBC 5.08 (4.30-5.90) m/uL Hgb 16.4 (13.0-17.5) gm/dL Hct 48.6 (39.0-53.0) % MCV 95.6 (80.0-100.0) fL MCH 32.2 (25.0-35.0) pg MCHC 33.7 (31.0-37.0) g/dL RDW 12.3 (11.5-15.5) % Plt Count 226 (150-450) k/uL MPV 8.9 Neutrophils % 62 % Lymphocytes % 27 % Monocytes % 6 % Eosinophils % 3 % Basophils % 1 % Neutrophils # 7.0 (1.3-7.7) k/uL Lymphocytes # 3.1 (1.0-4.8) k/uL Monocytes # 0.7 (0-1.0) k/uL Eosinophils # 0.4 (0-0.7) k/uL Basophils # 0.1 (0-0.2) k/uL Sodium 140 (137-145) mmol/L Potassium 4.7 (3.5-5.1) mmol/L Chloride 105 (98-107) mmol/L Carbon Dioxide 23 (22-30) mmol/L Anion Gap 12 mmol/L BUN 19 (9-20) mg/dL Creatinine 1.11 (0.66-1.25) mg/dL Est GFR (CKD-EPI)AfAm >90 (>60 ml/min/1.73 sqM) Est GFR (CKD-EPI)NonAf 82 (>60 ml/min/1.73 sqM) Glucose 94 (74-99) mg/dL Calcium 9.7 (8.4-10.2) mg/dL Total Bilirubin 0.5 (0.2-1.3) mg/dL AST 27 (17-59) U/L ALT 31 (4-49) U/L Alkaline Phosphatase 40 (38-126) U/L Total Protein 7.5 (6.3-8.2) g/dL Albumin 4.5 (3.5-5.0) g/dL Urine Color Light Yellow Urine Appearance Cloudy (Clear) Urine pH 5.5 (5.0-8.0) Ur Specific [place] 1.012 (1.001-1.035) Urine Protein Trace H (Negative) Urine Glucose (UA) Negative (Negative) Urine Ketones Negative (Negative) Urine Blood Large H (Negative) Urine Nitrite Negative (Negative) Urine Bilirubin Negative (Negative) Urine Urobilinogen <2.0 (<2.0) mg/dL Ur Leukocyte Esterase Small H (Negative) Urine RBC 168 H (0-5) /hpf Urine WBC 5 (0-5) /hpf Ur Squamous Epith Cells <1 (0-4) /hpf Urine Bacteria Rare H (None) /hpf Urine Mucus Rare H (None) /hpf Disposition Clinical Impression: Kidney stone Disposition: HOME SELF-CARE Condition: Fair Instructions (If sedation given, give patient instructions): Kidney Stones (ED) Prescriptions: HYDROcodone/APAP 5-325MG [[place] 5-325] 1 tab PO Q6HR PRN 3 Days #12 tab PRN Reason: Severe Pain Ketorolac [Toradol] 10 mg PO Q6HR PRN 3 Days #12 tab PRN Reason: Pain Is patient prescribed a controlled substance at d/c from ED?: Yes If prescribed controlled substance>3 days was MAPS reviewed?: Prescribed <3 Days Referrals: Josue Ambrosio MD [STAFF PHYSICIAN] - 1-2 days
== END 2023-08-02 20:26 | disposition home or self-care (01) ==
LOC: EC 14:24
DX: N13.2 Hydronephrosis with renal and ureteral calculous obstruction (principal); F17.200 Nicotine dependence, unspecified, uncomplicated; Z86.59 Personal history of other mental and behavioral disorders
CPT/HCPCS: 36415; 80053; 85025; 81001; 74176; 99284; 96374; 96375; 96361; J2405; J1885

== ENCOUNTER → 2023-08-09 | Outpatient (CLI) | payer OTHER ==
[2023-08-09 18:41] LABS: Basophils # (A) 0.04 X 10*3/uL (0.00-0.10); Basophils % (A) 0.5 %; Eosinophils # (A) 0.34 X 10*3/uL (0.04-0.35); Eosinophils % (A) 4.1 %; HCT 47.9 % (39.6-50.0); HGB 15.8 g/dL (13.0-17.0); Lymphocytes # (A) 2.31 X 10*3/uL (0.90-5.00); Lymphocytes % (A) 27.6 %; MCH 31.7 pg (27.0-32.0); MCV 96.2 FL (80.0-97.0); Mean Platelet Volume 12.2 FL (9.5-12.2); Monocytes # (A) 0.54 X 10*3/uL (0.20-1.00); Monocytes % (A) 6.5 %; NRBC Per 100 WBC 0 X 10*3/uL (0.00-0.01); Neutrophils # (A) 5.11 X 10*3/uL (1.80-7.70); Neutrophils % (A) 61.1 %; Platelet Count 219 X 10*3/uL (140-440); RBC 4.98 X 10*6/uL (4.40-5.60); RDW 12.8 % (11.5-14.5); WBC 8.36 X 10*3/uL (4.50-10.00)
[2023-08-09 18:44] LABS: Blood Urea Nitrogen 17.4 mg/dL (9.0-27.0)
[2023-08-09 18:45] LABS: Chloride 103 mmol/L (96-109); Potassium 4.3 mmol/L (3.5-5.5); Sodium 141 mmol/L (135-145)
[2023-08-09 19:31] LABS: Appearance,Urine Clear (Clear); Bilirubin,Urine Negative (Negative); Blood,Urine Small (Negative); Color,Urine Yellow (Yellow); Ketones,Urine Negative (Negative); Nitrite,Urine Negative (Negative); PH, Urine 7.5; Specific Gravity,Urine 1.016 (1.001-1.030); Urobilinogen,Urine 0.2 E.U./DL
[2023-08-09 19:38] LABS: Bacteria,Urine None Seen (None Seen)
== END | disposition home or self-care (01) ==
LOC: LABPAT 13:53
PROVIDERS: ATTEND Urology
DX: Z01.812 Encounter for preprocedural laboratory examination (principal); N20.1 Calculus of ureter
CPT/HCPCS: 80051; 81001; 82565; 84520; 85025; 87086

== ENCOUNTER 2023-08-15 06:48 | Day surgery (SDC) | payer OTHER ==
[2023-08-10 15:03] VITALS: BMI 30.1
--- NOTE | 2023-08-13 10:19 | P.GSHP ---
History of Present Illness H&P Date: 08/13/23 42-year-old male with a symptomatic left ureteral stone. He was in the emergency room and a computed tomography scan identified a 9 mm left UPJ stone. 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 dad takes awhile to come out of anesthesia Smoking Status: Current every day smoker - Past Family History Father Family Medical History: Cancer Additional Family Medical History / Comment(s): prostate CA,. great grandfather CHF Mother Family Medical History: No Reported History Medications and Allergies Home Medications Medication Instructions Recorded Confirmed Type clonazePAM [KlonoPIN] 1 mg PO BID 09/05/19 08/10/23 History HYDROcodone/APAP 5-325MG [[place] 1 tab PO Q6HR PRN 3 Days #12 tab 08/02/23 08/10/23 Rx 5-325] Ketorolac [Toradol] 10 mg PO Q6HR PRN 3 Days #12 tab 08/02/23 08/10/23 Rx Famotidine [Pepcid] 20 mg PO DAILY PRN 08/10/23 08/10/23 History Allergies Allergy/AdvReac Type Severity Reaction Status Date / Time No Known Allergies Allergy Verified 08/10/23 14:34 Surgical - Exam - General well developed, well nourished, no distress - Eyes normal ocular movement, no icteric - ENT no hearing loss, no congestion - Neck no masses, trachea midline - Respiratory normal respiratory effort, clear to auscultation - Abdomen Abdomen: soft, non tender, no guarding, no rigid, no rebound - Genitourinary Absent left testicle - Integumentary no rash, no abnormal pigmentation - Neurologic no disoriented, no combative - Psychiatric oriented to time, oriented to person, oriented to place, speech is normal, memory intact Results - Imaging CT scan - abdomen: report reviewed, image reviewed CT scan - pelvis: report reviewed, image reviewed Assessment and Plan Assessment: Impression: Left UPJ stone, 9 mm Recommendations: Extracorporeal shockwave lithotripsy left
[2023-08-15] MEDS ORDERED: LACTATED RINGERS 1,000 ML IV ONE (07:22)
--- NOTE | 2023-08-15 07:53 | XR ---
EXAMINATION TYPE: XR KUB DATE OF EXAM: 08/15/2023 Comparison: 05/29/2017 Clinical History: 42-year-old male N20.1 left ureteral calculus Findings: Possible 7 mm calcification projecting over the left L2 transverse process. Nonobstructive bowel gas pattern. Impression: Possible 7 mm left-sided calculus projecting over the left L2 transverse process, possibly near the l evel of the UPJ.
[2023-08-15 07:59] VITALS: TEMP 97.8
[2023-08-15] MEDS ORDERED: KETAMINE HCL IN 0.9 % NACL 50 MG/5 ML SYRINGE ONE (08:31)
[2023-08-15] MEDS ORDERED: PROPOFOL 10 MG/ML 20 ML VIAL IV ONE (08:31)
[2023-08-15] MEDS ORDERED: fentaNYL (PF) 50 MCG/ML 2 ML AMP ONE (08:31)
[2023-08-15] MEDS ORDERED: MIDAZOLAM 2 MG/2 ML VIAL ONE (08:31)
--- NOTE | 2023-08-15 09:26 | P.OP ---
Date of Procedure: 08/15/23 Preoperative Diagnosis: left ureteral stone Postoperative Diagnosis: same Procedure(s) Performed: Left ESWL Anesthesia: MAC Surgeon: Donald Cárdenas Disposition: PACU Indications for Procedure: 42-year-old male with a symptomatic left ureteral stone. He was in the emergency room and a computed tomography scan identified a 9 mm left UPJ stone. He was given treatment options and has chosen to proceed with shockwave lithotripsy Description of Procedure: The patient was taken to the operating room and placed on the Dornier Compact Delta II lithotripter in the supine position. The calculi were seen on biplanar fluoroscopy. . Once the patient was properly positioned and sedated, lithotripsy was performed. The energy level was gradually increased per protocol, to an energy level of 4. A total of 2500 shocks were given at a rate of 80 shocks per minute. Fluoroscopy was utilized at a minimum to ensure proper positioning and determine the treatment status. There was good fragmentation of the stone. The patient tolerated the procedure well was taken to the recovery room in stable condition. Instructions were given to strain the urine, and the patient will follow-up within one week.
[2023-08-15 10:25] VITALS: BP 136/90; PULSE 76; RESP 18
== END 2023-08-15 10:24 | disposition home or self-care (01) ==
LOC: ORWHC2ENDO 06:48
PROVIDERS: ATTEND Urology
DX: N20.1 Calculus of ureter (principal); K21.9 Gastro-esophageal reflux disease without esophagitis; F17.200 Nicotine dependence, unspecified, uncomplicated; Z87.442 Personal history of urinary calculi; Z90.79 Acquired absence of other genital organ(s); Z98.890 Other specified postprocedural states; Z80.42 Family history of malignant neoplasm of prostate; Z79.899 Other long term (current) drug therapy
CPT/HCPCS: 74018; 50590; J2250; J3010; J2704

== ENCOUNTER → 2023-08-22 | Outpatient (CLI) | payer OTHER ==
--- NOTE | 2023-08-22 10:44 | XR ---
EXAMINATION TYPE: XR KUB DATE OF EXAM: 08/22/2023 COMPARISON: 08/15/2023 INDICATION: 1 week post lithotripsy left side TECHNIQUE: Single view abdomen supine view FINDINGS: There is a normal bowel gas pattern. Psoas margins are normal. No organomegaly is present. IMPRESSION: 1. No suspicious renal or ureteral stones radiographically apparent.
== END | disposition home or self-care (01) ==
LOC: RADXRMAIN 10:10
PROVIDERS: ATTEND Urology
DX: N20.1 Calculus of ureter (principal)
CPT/HCPCS: 74018

== ENCOUNTER 2023-10-17 07:16 | Emergency (ER) | payer OTHER ==
--- NOTE | 2023-10-17 07:38 | ED ---
General Adult HPI - General Chief complaint: Chest Pain Stated complaint: Chest Pains Time Seen by Provider: 10/17/23 07:20 Source: patient, RN notes reviewed, old records reviewed Mode of arrival: ambulatory Limitations: no limitations - History of Present Illness Initial comments: Is a 43-year-old male who presents to the emergency department with no significant past medical history other than smoking. Patient has no family history of heart disease. Patient comes in today because he had a 10-minute episode of intermittent sharp chest pain to the left wall. Patient stated that it seemed as though it was related to movement at that time and after he rested a while it went away. Patient denies any radiation of the pain. Patient states he does get anxious and was not sure if he was short of breath or not but might have been a little. Patient denies any nausea. Patient denies any diaphoretic episode. Patient denies any recent fever chills or cough. Patient denies any abdominal pain. Patient denies any nausea vomiting or diarrhea. Patient denies any headache patient has numbness or weakness. Patient states the symptoms started around 6:00 this morning and after that 10 minutes he had no pain since - Related Data Home Medications Medication Instructions Recorded Confirmed clonazePAM [KlonoPIN] 1 mg PO BID 09/05/19 08/15/23 Famotidine [Pepcid] 20 mg PO DAILY PRN 08/10/23 08/15/23 Previous Rx's Medication Instructions Recorded HYDROcodone/APAP 5-325MG [[place] 1 tab PO Q6HR PRN 3 Days #12 tab 08/02/23 5-325] Ketorolac [Toradol] 10 mg PO Q6HR PRN 3 Days #12 tab 08/02/23 HYDROcodone/APAP 5-325MG [[place] 1 tab PO Q6HR PRN 3 Days #12 tab 08/15/23 5-325] Allergies Allergy/AdvReac Type Severity Reaction Status Date / Time No Known Allergies Allergy Verified 10/17/23 07:20 Review of Systems ROS Statement: Those systems with pertinent positive or pertinent negative responses have been documented in the HPI. ROS Other: All systems not noted in ROS Statement are negative. 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 great grandfather CHF Mother Family Medical History: No Reported History General Exam - General Exam Comments Initial Comments: GENERAL: Patient is well-developed and well-nourished. Patient is nontoxic and well-hydrated and is in no acute distress. ENT: Neck is soft and supple. No significant lymphadenopathy is noted. Oropharynx is clear. Moist mucous membranes. Neck has full range of motion without eliciting any pain. EYES: The sclera were anicteric and conjunctiva were pink and moist. Extraocular move ments were intact and pupils were equal round and reactive to light. Eyelids were unremarkable. PULMONARY: Unlabored respirations. Good breath sounds bilaterally. No audible rales rhonchi or wheezing was noted. CARDIOVASCULAR: There is a regular rate and rhythm without any murmurs gallops or rubs. ABDOMEN: Soft and nontender with normal bowel sounds. No palpable organomegaly was noted. There is no palpable pulsatile mass. SKIN: Skin is clear with no lesions or rashes and otherwise unremarkable. NEUROLOGIC: Patient is alert and oriented x3. Cranial nerves II through XII are grossly intact. Motor and sensory are also intact. Normal speech, volume and content. Symmetrical smile. MUSCULOSKELETAL: Normal extremities with adequate strength and full range of motion. No lower ex tremity swelling or edema. No calf tenderness. LYMPHATICS: No significant lymphadenopathy is noted PSYCHIATRIC: Normal psychiatric evaluation. Limitations: no limitations Course Vital Signs 10/17/23 10/17/23 10/17/23 07:18 07:22 07:30 Temperature 98 F Pulse Rate 104 H 102 H 86 Respiratory 20 18 16 Rate Blood Pressure 147/91 117/91 112/95 O2 Sat by Pulse 99 98 Oximetry 10/17/23 10/17/23 08:01 08:15 Temperature Pulse Rate 80 80 Respiratory 20 18 Rate Blood Pressure 132/80 129/81 O2 Sat by Pulse 96 96 Oximetry Medical Decision Making - Medical Decision Making EKG is interpreted by myself EKG shows a sinus rhythm with occasional PVC at 95 bpm [place] interval 147 QRS is 86 QT interval is 343 QTc is [address] segment ovation or depression Was pt. sent in by a medical professional or institution (ROSANA Hardy, CREDIT SUPPORT COUNSELOR, urgent care, hospital, or skilled nursing...) When possible be specific @ -No Did you speak to anyone other than the patient for history (EMS, parent, family, police, friend...)? What history was obtained from this source @ -No Did you review nursing and triage notes (agree or disagree)? Why? @ -I reviewed and agree with nursing and triage notes Were old charts reviewed (outside hosp., previous admission, EMS record, old EKG, old radiological studies, urgent care reports/EKG's, skilled nursing records)? Report findings @ -No old charts were reviewed Differential Diagnosis (chest pain, altered mental status, abdominal pain women, abdominal pain men, vaginal bleeding, weakness, fever, dyspnea, syncope, headache, dizziness, GI bleed, back pain, seizure, CVA, palpatations, mental health, musculoskeletal)? @ -Differential Chest Pain: Stable Angina, Unstable Angina, STEMI, NSTEMI Aortic Dissection, Pneumothorax, Musculoskeletal, Esophageal Spasm GERD, Cholecystitis, Pancreatitis, Zoster, this is not meant to be an all-inclusive list. EKG interpreted by me (3pts min.). @ -As above X-rays interpreted by me (1pt min.). @ -Chest x-ray shows no acute abnormality CT interpreted by me (1pt min.). @ -None done U/S interpreted by me (1pt. min.). @ -None done What testing was considered but not performed or refused? (CT, X-rays, U/S, labs)? Why? @ -None What meds were considered but not given or refused? Why? @ -None Did you discuss the management of the patient with other professionals (professionals i.e. ROSANA Hardy, CREDIT SUPPORT COUNSELOR, lab, RT, psych nurse, mental health social worker, clay mine cutting machine operator, teacher, hospital security officer, foster care case manager)? Give summary @ -No Was smoking cessation discussed for >3mins.? @ -Yes Was critical care preformed (if so, how long)? @ -No Were there social determinants of health that impacted care today? How? (Homelessness, low income, unemployed, alcoholism, drug addiction, transportation, low edu. Level, literacy, decrease access to med. care, residential, rehab)? @ -No Was there de-escalation of care discussed even if they declined (Discuss DNR or withdrawal of care, Hospice)? DNR status @ -No What co-morbidities impacted this encounter? (DM, HTN, Smoking, COPD, CAD, Cancer, CVA, ARF, Chemo, Hep., AIDS, mental health diagnosis, sleep apnea, morbid obesity)? @ -None Was patient admitted / discharged? Hospital course, mention meds given and route, prescriptions, significant lab abnormalities, going to OR and other pertinent info. @ -Patient had no further pain in the emergency department. Patient states the pain earlier was reproducible with certain movements. Patient states he had t his once before and it turned out to be musculoskeletal and he had a stress test a couple years ago. Patient is pain-free and has no complaints at this time. Patient was instructed to quit smoking Undiagnosed new problem with uncertain prognosis? @ -No Drug Therapy requiring intensive monitoring for toxicity (Heparin, Nitro, Insulin, Cardizem)? @ -No Were any procedures done? @ -No Diagnosis/symptom? @ -Musculoskeletal chest pain Acute, or Chronic, or Acute on Chronic? @ -Acute Uncomplicated (without systemic symptoms) or Complicated (systemic symptoms)? @ -Complicated Side effects of treatment? @ -No Exacerbation, Progression, or Severe Exacerbation? @ -No Poses a threat to life or bodily function? How? (Chest pain, [place], [place], pneumonia, PE, COPD, DKA, ARF, appy, cholecystitis, CVA, Diverticulitis, Homicidal, Suicidal, threat to staff... and all critical care pts) @ -No - Lab Data Result diagrams: 10/17/23 07:30 10/17/23 07:30 Lab Results 10/17/23 10/17/23 10/17/23 Range/Units 07:30 07:30 07:30 WBC 7.6 (3.8-10.6) k/uL RBC 4.88 (4.30-5.90) m/uL Hgb 15.7 (13.0-17.5) gm/dL Hct 47.5 (39.0-53.0) % MCV 97.4 (80.0-100.0) fL MCH 32.3 (25.0-35.0) pg MCHC 33.1 (31.0-37.0) g/dL RDW 12.7 (11.5-15.5) % Plt Count 220 (150-450) k/uL MPV 8.5 Neutrophils % 40 % Lymphocytes % 46 % Monocytes % 6 % Eosinophils % 5 % Basophils % 1 % Neutrophils # 3.1 (1.3-7.7) k/uL Lymphocytes # 3.4 (1.0-4.8) k/uL Monocytes # 0.5 (0-1.0) k/uL Eosinophils # 0.4 (0-0.7) k/uL Basophils # 0.1 (0-0.2) k/uL PT 9.7 L (10.0-12.5) sec INR 0.9 (<1.2) APTT 25.2 (22.0-30.0) sec D-Dimer 0.25 (<0.60) mg/L FEU Sodium 140 (137-145) mmol/L Potassium 3.8 (3.5-5.1) mmol/L Chloride 109 H (98-107) mmol/L Carbon Dioxide 24 (22-30) mmol/L Anion Gap 7 mmol/L BUN 18 (9-20) mg/dL Creatinine 1.05 (0.66-1.25) mg/dL Est GFR (CKD-EPI)AfAm >90 (>60 ml/min/1.73 sqM) Est GFR (CKD-EPI)NonAf 88 (>60 ml/min/1.73 sqM) Glucose 109 H (74-99) mg/dL Calcium 9.3 (8.4-10.2) mg/dL Magnesium 1.9 (1.6-2.3) mg/dL Total Bilirubin 0.6 (0.2-1.3) mg/dL AST 25 (17-59) U/L ALT 23 (4-49) U/L Alkaline Phosphatase 39 (38-126) U/L Troponin I (0.000-0.034) ng/mL Total Protein 6.9 (6.3-8.2) g/dL Albumin 4.1 (3.5-5.0) g/dL 10/17/23 Range/Units 07:30 WBC (3.8-10.6) k/uL RBC (4.30-5.90) m/uL Hgb (13.0-17.5) gm/dL Hct (39.0-53.0) % MCV (80.0-100.0) fL MCH (25.0-35.0) pg MCHC (31.0-37.0) g/dL RDW (11.5-15.5) % Plt Count (150-450) k/uL MPV Neutrophils % % Lymphocytes % % Monocytes % % Eosinophils % % Basophils % % Neutrophils # (1.3-7.7) k/uL Lymphocytes # (1.0-4.8) k/uL Monocytes # (0-1.0) k/uL Eosinophils # (0-0.7) k/uL Basophils # (0-0.2) k/uL PT (10.0-12.5) sec INR (<1.2) APTT (22.0-30.0) sec D-Dimer (<0.60) mg/L FEU Sodium (137-145) mmol/L Potassium (3.5-5.1) mmol/L Chloride (98-107) mmol/L Carbon Dioxide (22-30) mmol/L Anion Gap mmol/L BUN (9-20) mg/dL Creatinine (0.66-1.25) mg/dL Est GFR (CKD-EPI)AfAm (>60 ml/min/1.73 sqM) Est GFR (CKD-EPI)NonAf (>60 ml/min/1.73 sqM) Glucose (74-99) mg/dL Calcium (8.4-10.2) mg/dL Magnesium (1.6-2.3) mg/dL Total Bilirubin (0.2-1.3) mg/dL AST (17-59) U/L ALT (4-49) U/L Alkaline Phosphatase (38-126) U/L Troponin I <0.012 (0.000-0.034) ng/mL Total Protein (6.3-8.2) g/dL Albumin (3.5-5.0) g/dL Disposition Clinical Impression: Musculoskeletal chest pain Disposition: HOME SELF-CARE Instructions (If sedation given, give patient instructions): Chest Pain (ED) Additional Instructions: Patient should return to the emergency department if symptoms persist or there are any new symptoms. Patient should quit smoking Is patient prescribed a controlled substance at d/c from ED?: No Referrals: Yaakov Madrid MD [Primary Care Provider] - 1-2 days Time of Disposition: 08:38
[2023-10-17 07:48] LABS: Basophils # (A) 0.1 k/uL (0-0.2); Basophils % (A) 1 %; Eosinophils # (A) 0.4 k/uL (0-0.7); Eosinophils % (A) 5 %; HCT 47.5 % (39.0-53.0); HGB 15.7 gm/dL (13.0-17.5); Lymphocytes # (A) 3.4 k/uL (1.0-4.8); Lymphocytes % (A) 46 %; MCH 32.3 pg (25.0-35.0); MCHC 33.1 g/dL (31.0-37.0); MCV 97.4 fL (80.0-100.0); Mean Platelet Volume 8.5; Monocytes # (A) 0.5 k/uL (0-1.0); Monocytes % (A) 6 %; Neutrophils # (A) 3.1 k/uL (1.3-7.7); Neutrophils % (A) 40 %; Platelet Count 220 k/uL (150-450); RBC 4.88 m/uL (4.30-5.90); RDW 12.7 % (11.5-15.5); WBC 7.6 k/uL (3.8-10.6)
[2023-10-17] MEDS: ASPIRIN 81 MG PO STA (07:57)
[2023-10-17 07:58] LABS: ALT 23 U/L (4-49); AST 25 U/L (17-59); African American GFR (CKD) >90 (>60 ml/min/1.73 sqM); Albumin 4.1 g/dL (3.5-5.0); Alkaline Phosphatase 39 U/L (38-126); Anion Gap 7 mmol/L; Blood Urea Nitrogen 18 mg/dL (9-20); Calcium 9.3 mg/dL (8.4-10.2); Carbon Dioxide 24 mmol/L (22-30); Chloride 109 mmol/L (98-107); Glucose 109 mg/dL (74-99); Magnesium 1.9 mg/dL (1.6-2.3); Non-African American GFR(CKD) 88 (>60 ml/min/1.73 sqM); Potassium 3.8 mmol/L (3.5-5.1); Sodium 140 mmol/L (137-145); Total Bilirubin 0.6 mg/dL (0.2-1.3); Total Protein 6.9 g/dL (6.3-8.2)
[2023-10-17] MEDS: NITROGLYCERIN OINT 1 INCH/GM PACKET TOPICAL STA (07:59)
[2023-10-17 08:15] VITALS: RESP 16; TEMP 98
[2023-10-17 08:15] LABS: INR 0.9 (<1.2); Partial Thromboplastin Time 25.2 sec (22.0-30.0); Prothrombin Time 9.7 sec (10.0-12.5)
[2023-10-17] MEDS: ONDANSETRON 4 MG/2 ML VIAL IVP STA (08:15)
--- NOTE | 2023-10-17 08:16 | XR ---
EXAMINATION TYPE: XR chest 2V DATE OF EXAM: 10/17/2023 8:02 AM CLINICAL INDICATION:Male, 43 years old with history of Chest Pain; [facility] COMPARISON: Chest radiographs from 06/19/2022. TECHNIQUE: XR chest 2V Frontal and lateral views of the chest. FINDINGS: Lungs/Pleura: There is no evidence of pleural effusion, focal consolidation, or pneumothorax. Pulmonary vascularity: Unremarkable. Heart/mediastinum: Cardiomediastinal silhouette is unremarkable. Musculoskeletal: No acute osseous pathology. Other findings: None IMPRESSION: No acute cardiopulmonary disease/process.
[2023-10-17 08:51] VITALS: BP 129/81; PULSE 70
== END 2023-10-17 08:46 | disposition home or self-care (01) ==
LOC: EC 07:16
DX: R07.89 Other chest pain (principal); F17.200 Nicotine dependence, unspecified, uncomplicated
CPT/HCPCS: 36415; 93005; 85379; 80053; 83735; 84484; 85025; 85610; 85730; 71046; 99406; 99285; 96374; J2405

== ENCOUNTER 2024-01-03 20:46 | Emergency (ER) | payer OTHER ==
--- NOTE | 2024-01-03 22:39 | ED ---
General Adult HPI - General Chief complaint: Extremity Injury, Lower Stated complaint: PAIN IN LT LEG Time Seen by Provider: 01/03/24 22:30 Source: patient Mode of arrival: ambulatory Limitations: no limitations - History of Present Illness Initial comments: 43-year-old male presents to the ED with complaint of left leg pain. Patient states that he was lying on the couch taking a nap and he went to go stand up and suddenly noticed pain in his left upper thigh while trying to stand. States since onset has improved. Pain worse with movement. Is a smoker. No fever or chills. - Related Data Home Medications Medication Instructions Recorded Confirmed clonazePAM [KlonoPIN] 1 mg PO BID 09/05/19 08/15/23 Famotidine [Pepcid] 20 mg PO DAILY PRN 08/10/23 08/15/23 Previous Rx's Medication Instructions Recorded HYDROcodone/APAP 5-325MG [[place] 1 tab PO Q6HR PRN 3 Days #12 tab 08/02/23 5-325] Ketorolac [Toradol] 10 mg PO Q6HR PRN 3 Days #12 tab 08/02/23 HYDROcodone/APAP 5-325MG [[place] 1 tab PO Q6HR PRN 3 Days #12 tab 08/15/23 5-325] Cyclobenzaprine [Flexeril] 10 mg PO TID PRN #15 tab 01/04/24 Ibuprofen [Motrin] 600 mg PO Q8HR PRN #30 tab 01/04/24 Allergies Allergy/AdvReac Type Severity Reaction Status Date / Time No Known Allergies Allergy Verified 01/03/24 20:51 Review of Systems ROS Statement: Those systems with pertinent positive or pertinent negative responses have been documented in the HPI. ROS Other: All systems not noted in ROS Statement are negative. 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 great grandfather CHF Mother Family Medical History: No Reported History General Exam - General Exam Comments Initial Comments: Visual Physical Exam Vital signs reviewed General: Well-appearing, nontoxic, no acute distress. Head: Normocephalic, atraumatic Eyes: PERRLA, EOMI ENT: Airway patent Chest: Nonlabored breathing Skin: No visual rash, normal skin tone Neuro: Alert and oriented 3 Musculoskeletal: No gross abnormalities Limitations: no limitations General appearance: alert, in no apparent distress Eye exam: Present: normal appearance Neck exam: Present: normal inspection Respiratory exam: Present: normal lung sounds bilaterally Cardiovascular Exam: Present: regular rate GI/Abdominal exam: Present: soft, normal bowel sounds. Absent: distended, tenderness, guarding, rebound, rigid Extremities exam: Present: other (Right upper thigh shows no warmth erythema. Is tender to palpation right upper lateral thigh. DP/PT pulses intact. Ambulates without difficulty.) Neurological exam: Present: alert, oriented X3 Skin exam: Present: warm, dry Course Vital Signs 01/03/24 01/04/24 01/04/24 20:50 00:00 00:42 Temperature 98.6 F 98.0 F Pulse Rate 121 H 93 Respiratory 20 18 Rate Blood Pressure 120/84 116/83 O2 Sat by Pulse 97 97 Oximetry Medical Decision Making - Medical Decision Making Was pt. sent in by a medical professional or institution (ROSANA Hardy, HOSPITALITY ASSOCIATE, urgent care, hospital, or prison...) When possible be specific @ -No Did you speak to anyone other than the patient for history (EMS, parent, family, police, friend...)? What history was obtained from this source @ -No Did you review nursing and triage notes (agree or disagree)? Why? @ -I reviewed and agree with nursing and triage notes Were old charts reviewed (outside hosp., previous admission, EMS record, old EKG, old radiological studies, urgent care reports/EKG's, prison records)? Report findings @ -No old charts were reviewed Differential Diagnosis (chest pain, altered mental status, abdominal pain women, abdominal pain men, vaginal bleeding, weakness, fever, dyspnea, syncope, headache, dizziness, GI bleed, back pain, seizure, CVA, palpatations, mental health, musculoskeletal)? @ -Differential Musculoskeletal Muscular strain, contusion, ligament sprain, fracture, arthritis, septic arthritis, bursitis, cellulitis, muscle spasm, nerve compression, DVT, arterial occlusion, herpes zoster, electrolyte abnormality, tumor.... This is not meant to be in all inclusive list EKG interpreted by me (3pts min.). @ -None X-rays interpreted by me (1pt min.). @ -X-ray of the femur interpreted me which revealed no evidence of acute finding CT interpreted by me (1pt min.). @ -None done U/S interpreted by me (1pt. min.). @ -Ultrasound interpreted me which revealed no evidence of DVT or other acute finding. What testing was considered but not performed or refused? (CT, X-rays, U/S, labs)? Why? @ -None What meds were considered but not given or refused? Why? @ -None Did you discuss the management of the patient with other professionals (professionals i.e. , PA, HOSPITALITY ASSOCIATE, lab, RT, psych nurse, social sciences department chair, retail merchandising coordinator, teacher, search and rescue officer, case preparer and liner)? Give summary @ -No Was smoking cessation discussed for >3mins.? @ -No Was critical care preformed (if so, how long)? @ -No Were there social determinants of health that impacted care today? How? (Homelessness, low income, unemployed, alcoholism, drug addiction, transportation, low edu. Level, literacy, decrease access to med. care, fci, rehab)? @ -No Was there de-escalation of care discussed even if they declined (Discuss DNR or withdrawal of care, Hospice)? DNR status @ -No What co-morbidities impacted this encounter? (DM, HTN, Smoking, COPD, CAD, Cancer, CVA, ARF, Chemo, Hep., AIDS, mental health diagnosis, sleep apnea, morbid obesity)? @ -None Was patient admitted / discharged? Hospital course, mention meds given and route, prescriptions, significant lab abnormalities, going to OR and other pertinent info. @ -Discharge 43-year-old male presenting to the ED with complaints of left upper thigh pain while trying to get up from a seated position onset tonight. Since arrival here pain improved spontaneously and given analgesia patient reports pain has almost completely resolved however does return with movement. Imaging studies reviewed which revealed no evidence of acute finding. Symptoms likely musculoskeletal in nature. Discharged home in stable condition. Advise close follow-up with his PCP. Undiagnosed new problem with uncertain prognosis? @ -No Drug Therapy requiring intensive monitoring for toxicity (Heparin, Nitro, Insulin, Cardizem)? @ -No Were any procedures done? @ -No Diagnosis/symptom? @ -Thigh pain, muscle strain Acute, or Chronic, or Acute on Chronic? @ -Acute Uncomplicated (without systemic symptoms) or Complicated (systemic symptoms)? @ -Uncomplicated Side effects of treatment? @ -No Exacerbation, Progression, or Severe Exacerbation? @ -No Poses a threat to life or bodily function? How? (Chest pain, [place], [place], pneumonia, PE, COPD, DKA, ARF, appy, cholecystitis, CVA, Diverticulitis, Homicidal, Suicidal, threat to staff... and all critical care pts) @ -No Disposition Clinical Impression: Leg pain Disposition: HOME SELF-CARE Condition: Good Instructions (If sedation given, give patient instructions): Muscle Strain (ED) Additional Instructions: Please return to the Emergency Department if symptoms worsen or any other concerns. Please follow-up with your PCP. Prescriptions: Cyclobenzaprine [Flexeril] 10 mg PO TID PRN #15 tab PRN Reason: Muscle Spasm Ibuprofen [Motrin] 600 mg PO Q8HR PRN #30 tab PRN Reason: Pain Is patient prescribed a controlled substance at d/c from ED?: No Referrals: Yaakov Madrid MD [Primary Care Provider] - 1-2 days Time of Disposition: 00:39
--- NOTE | 2024-01-03 23:21 | US ---
EXAMINATION TYPE: US venous doppler duplex LE LT DATE OF EXAM: 01/03/2024 10:38 PM COMPARISON: NONE CLINICAL INDICATION: Male, 43 years old with history of l thigh pain; Left thigh pain since today SIDE PERFORMED: Left TECHNIQUE: The lower extremity deep venous system is examined utilizing real time linear array sonog barbie with graded compression, doppler sonography and color-flow sonography. VESSELS IMAGED: Common Femoral Vein Deep Femoral Vein Greater Saphenous Vein * Femoral Vein Popliteal Vein Small Saphenous Vein * Proximal Calf Veins (* superficial vessels) Left Leg: Negative for DVT Grayscale, color doppler, spectral doppler imaging performed of the deep veins of the left lower extr emity. There is normal flow, compressibility, vascular waveforms. IMPRESSION: No ultrasound evidence for acute DVT in the left lower extremity.
--- NOTE | 2024-01-03 23:35 | XR ---
EXAMINATION TYPE: XR femur LT DATE OF EXAM: 01/03/2024 CLINICAL HISTORY: Left thigh pain TECHNIQUE: Two views of the left femur are obtained. COMPARISON: None FINDINGS: There is no acute fracture or dislocation seen in the left femur. The left hip and knee j oints appear within normal limits. Overlying clothing or blanket material is present. IMPRESSION: Unremarkable study.
[2024-01-03] MEDS: ACETAMINOPHEN TAB 500 MG TAB PO STA (23:56)
[2024-01-03] MEDS: KETOROLAC 15 MG/ML 1 ML VIAL IM STA (23:57)
[2024-01-04] MEDS: CYCLOBENZAPRINE 10MG STARTER 3 TAB BTL PO STA (00:41)
[2024-01-04 00:44] VITALS: BP 116/83; PULSE 93; RESP 18; TEMP 98
== END 2024-01-04 00:59 | disposition home or self-care (01) ==
LOC: EC 20:46
DX: M79.652 Pain in left thigh (principal); F17.200 Nicotine dependence, unspecified, uncomplicated
CPT/HCPCS: 73552; 93971; 99284; 96372; J1885

== ENCOUNTER 2024-04-24 20:57 | Emergency (ER) | payer OTHER ==
[2024-04-24 21:07] VITALS: BP 145/83; PULSE 120; RESP 20; TEMP 98
--- NOTE | 2024-04-24 22:51 | ED ---
Upper Extremity HPI - General Chief Complaint: Extremity Injury, Upper Stated Complaint: L Arm/Neck Pain Time Seen by Provider: 04/24/24 21:13 Source: patient, RN notes reviewed Mode of arrival: ambulatory Limitations: no limitations - History of Present Illness Initial Comments: 43-year-old male presents emergency department with chief complaint of neck pain, left arm pain. Patient states this started last day or so. It is worse after he gets up in the morning. He states that he has pain and numbness denies any chest pain or shortness of breath no headache there is no focal weakness no extremity weakness - Related Data Home Medications Medication Instructions Recorded Confirmed clonazePAM [KlonoPIN] 1 mg PO BID 09/05/19 08/15/23 Famotidine [Pepcid] 20 mg PO DAILY PRN 08/10/23 08/15/23 Previous Rx's Medication Instructions Recorded HYDROcodone/APAP 5-325MG [[place] 1 tab PO Q6HR PRN 3 Days #12 tab 08/02/23 5-325] Ketorolac [Toradol] 10 mg PO Q6HR PRN 3 Days #12 tab 08/02/23 HYDROcodone/APAP 5-325MG [[place] 1 tab PO Q6HR PRN 3 Days #12 tab 08/15/23 5-325] Cyclobenzaprine [Flexeril] 10 mg PO TID PRN #15 tab 01/04/24 Ibuprofen [Motrin] 600 mg PO Q8HR PRN #30 tab 01/04/24 Cyclobenzaprine [Flexeril] 10 mg PO TID PRN #15 tab 04/24/24 predniSONE 50 mg PO DAILY #5 tab 04/24/24 Allergies Allergy/AdvReac Type Severity Reaction Status Date / Time No Known Allergies Allergy Verified 01/03/24 20:51 Review of Systems ROS Statement: Those systems with pertinent positive or pertinent negative responses have been documented in the HPI. ROS Other: All systems not noted in ROS Statement are negative. 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 great grandfather CHF Mother Family Medical History: No Reported History General Exam Limitations: no limitations General appearance: alert, in no apparent distress Head exam: Present: atraumatic, normocephalic, normal inspection Eye exam: Present: normal appearance, PERRL, EOMI. Absent: scleral icterus, conjunctival injection, periorbital swelling ENT exam: Present: normal exam, normal oropharynx, mucous membranes moist Neck exam: Present: normal inspection, tenderness, full ROM. Absent: meningismus, lymphadenopathy Respiratory exam: Present: normal lung sounds bilaterally. Absent: respiratory distress, wheezes, rales, rhonchi, stridor Cardiovascular Exam: Present: regular rate, normal rhythm, normal heart sounds. Absent: systolic murmur, diastolic murmur, rubs, gallop, clicks Neurological exam: Present: alert, oriented X3, CN II-XII intact, reflexes normal. Absent: motor sensory deficit Skin exam: Present: warm, dry, intact, normal color. Absent: rash Course Vital Signs 04/24/24 21:05 Temperature 98 F Pulse Rate 120 H Respiratory 20 Rate Blood Pressure 145/83 O2 Sat by Pulse 98 Oximetry Medical Decision Making - Medical Decision Making Was pt. sent in by a medical professional or institution (Dr. PA, INTERNAL COMBUSTION ENGINE ASSEMBLER, urgent care, hospital, or custodial...) When possible be specific @ -No Did you speak to anyone other than the patient for history (EMS, parent, family, police, friend...)? What history was obtained from this source @ -No Did you review nursing and triage notes (agree or disagree)? Why? @ -I reviewed and agree with nursing and triage notes Were old charts reviewed (outside hosp., previous admission, EMS record, old EKG, old radiological studies, urgent care reports/EKG's, custodial records)? Report findings @ -No old charts were reviewed Differential Diagnosis (chest pain, altered mental status, abdominal pain women, abdominal pain men, vaginal bleeding, weakness, fever, dyspnea, syncope, headache, dizziness, GI bleed, back pain, seizure, CVA, palpatations, mental health, musculoskeletal)? @ -Cervical radiculopathy, muscle spasm, disc herniation, arm pain EKG interpreted by me (3pts min.). @ -As above X-rays interpreted by me (1pt min.). @ -Cervical x-ray showing degenerative changes, mild straightening of cervical spine CT interpreted by me (1pt min.). @ -None done U/S interpreted by me (1pt. min.). @ -None done What testing was considered but not performed or refused? (CT, X-rays, U/S, labs)? Why? @ -None What meds were considered but not given or refused? Why? @ -None Did you discuss the management of the patient with other professionals (professionals i.e. DrLaney, PA, INTERNAL COMBUSTION ENGINE ASSEMBLER, lab, RT, psych nurse, health and social care teacher, foundry patternmaker, teacher, alumni relations officer, lining caser)? Give summary @ -No Was smoking cessation discussed for >3mins.? @ -No Was critical care preformed (if so, how long)? @ -No Were there social determinants of health that impacted care today? How? (Homelessness, low income, unemployed, alcoholism, drug addiction, transpo rtation, low edu. Level, literacy, decrease access to med. care, assisted, rehab)? @ -No Was there de-escalation of care discussed even if they declined (Discuss DNR or withdrawal of care, Hospice)? DNR status @ -No What co-morbidities impacted this encounter? (DM, HTN, Smoking, COPD, CAD, Cancer, CVA, ARF, Chemo, Hep., AIDS, mental health diagnosis, sleep apnea, morbid obesity)? @ -None Was patient admitted / discharged? Hospital course, mention meds given and route, prescriptions, significant lab abnormalities, going to OR and other pertinent info. @ -Discharge patient has loss of normal curvature of cervical spine, degenerative changes concerning for supraclavicular apathy. Patient is EKG is unremarkable. Patient discharged in stable condition with steroids, muscle laxer. Undiagnosed new problem with uncertain prognosis? @ -No Drug Therapy requiring intensive monitoring for toxicity (Heparin, Nitro, Insulin, Cardizem)? @ -No Were any procedures done? @ -No Diagnosis/symptom? @Cervical radiculopathy Acute, or Chronic, or Acute on Chronic? @ -Acute Uncomplicated (without systemic symptoms) or Complicated (systemic symptoms)? @ -Uncomplicated Side effects of treatment? @ -No Exacerbation, Progression, or Severe Exacerbation? @ -No Poses a threat to life or bodily function? How? (Chest pain, [place], VT, pneumonia, PE, COPD, DKA, ARF, appy, cholecystitis, CVA, Diverticulitis, Homicidal, Suicidal, threat to staff... and all critical care pts) @ -No - EKG Data -: EKG Interpreted by Me EKG Comments: EKG performed at 23: 14 sinus rhythm rate of 74 OK 133 QRS 87 QT/QTc 341/375 Disposition Clinical Impression: Cervical radiculopathy Disposition: HOME SELF-CARE Condition: Stable Instructions (If sedation given, give patient instructions): Cervical Radiculopathy (ED) Additional Instructions: Please return to the Emergency Department if symptoms worsen or any other concerns. Prescriptions: Cyclobenzaprine [Flexeril] 10 mg PO TID PRN #15 tab PRN Reason: Muscle Spasm predniSONE 50 mg PO DAILY #5 tab Is patient prescribed a controlled substance at d/c from ED?: No Referrals: Yaakov Madrid MD [Primary Care Provider] - 1-2 days Time of Disposition: 23:26
[2024-04-24] MEDS: CYCLOBENZAPRINE 10 MG TAB PO STA (23:34)
[2024-04-24] MEDS: predniSONE 50 MG TAB PO STA ×2 (23:46)
--- NOTE | 2024-04-25 00:35 | XR ---
EXAM: XR Cervical Spine, 2 or 3 Views CLINICAL HISTORY: ITS.REASON XR Reason: pain TECHNIQUE: Frontal and lateral views of the cervical spine. COMPARISON: No relevant prior studies available. FINDINGS: Vertebrae: Disc space narrowing and degenerative endplate changes at C6- 7. No definite fracture. Normal alignment. Disc spaces: No acute findings. No significant narrowing. Soft tissues: Unremarkable. IMPRESSION: No acute findings.
== END 2024-04-24 23:52 | disposition home or self-care (01) ==
LOC: EC 20:57
CPT/HCPCS: 72050; 93005; 99283